=== PATIENT | male | born 1960 | race Caucasian/White ===

== ENCOUNTER 2016-08-21 10:30 | Emergency (ER) | payer OTHER ==
[~2016-08-21] VITALS: Ht 175.3 cm; Wt 113.7 kg
[~2016-08-21 10:30] MED LIST: ASPI325T39 PO; CARV6.252 PO; CEFA500C2 PO; IPRA1AER2 INH; LISI5TAB PO; NTRGSL/4 SL; SIMV40TA4 PO
[2016-08-21 10:42] VITALS: TEMP 36.8; Ht 175.3 cm; Wt 113.7 kg
[2016-08-21] MEDS ORDERED: GABA-113 PO (10:59)
[2016-08-21] MEDS ORDERED: FAMOTIDINE 20MG/102 ML D5W IV STA (11:51)
[2016-08-21] MEDS ORDERED: DiphenhydrAMINE HCL 50 MG/ML VIAL IV STA ×2 (11:51→13:03)
--- NOTE | 2016-08-21 11:57 | EMERGENCY ROOM VISIT NOTE ---
History First contact with patient: 11:20 Chief Complaint: RASH Stated Complaint: RASH, BURNING/ITCHING History of Present Illness The patient is a 56 year old male who presents to the Emergency Room with complaints of rash. The patient states that he has had a rash before . He states the rash started on his elbows and flexor surfaces. He states the next day the rash had spread to his entire body. The patient states the rash is burning and itching. He states that his face feels like it is on fire. He saw his family doctor just after . He was started on prednisone which made the rash get better but it came back 1 day after stopping the prednisone. He has not yet seen dermatology. He does have a history of ulcerative colitis. He has not had any recent changes in his medications. He denies any fevers. He states that his throat feels sore. He denies any worsening ulcerative colitis symptoms. He states his dog tested positive for Lyme disease. He denies any history of similar. Review of Systems A 10 system review of systems was completed with positives and pertinent negatives listed in the HPI. 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 (5) DIAB CONNER WO COMPL, TYPE II OR UNSPEC TYPE, NOT UNCNTRLD (6) DIVERTICULOSIS COLON (W/O MENT OF HEMORRHAGE) (7) ESOPHAGEAL REFLUX (8) Heart Disease (9) Hip Replacement (10) HISTORY OF TOBACCO USE (11) HYPERLIPIDEMIA NEC/NOS (12) HYPOTHYROIDISM NOS (13) LEGIONNAIRES' DISEASE (14) MSSA (methicillin susceptible Staphylococcus aureus) infection (15) MSSA (methicillin susceptible Staphylococcus aureus) septicemia (16) Stents x5 (17) ULCERATIVE COLITIS, UNSPECIFIED Family History Heart disease Social History Smoking Status: Former Smoker Alcohol Use: none Drug Use: none Marital Status: Housing Status: lives with family Occupation Status: employed Current/Historical Medications Scheduled Carvedilol (Coreg), 6.25 MG PO BID Gabapentin (Neurontin), 300 MG PO TID Hydrocortisone (Topical) (Hydrocortisone), 1 APPLN TOP BID Ipratropium-Albuterol (Combivent Respimat), 1 PUFFS INH QID Lisinopril (Prinivil), 2.5 MG PO QAM Nitroglycerin (Nitrostat), 1 TAB SL UD Prednisone (Prednisone Tab), 20 MG PO UD Simvastatin (Zocor), 40 MG PO QAM Triamcinolone Acet (Aristocort 0.1%), 1 APPLN TOP BID Miscellaneous Medications Aspirin (Aspirin Ec), 325 MG PO Allergies Coded Allergies: No Known Allergies (Verified , 08/21/16) Physical Exam Vital Signs Date Time Temp Pulse Resp B/P Pulse Ox O2 Delivery O2 Flow Rate FiO2 08/21/16 14:52 68 18 108/65 98 Room Air 08/21/16 13:10 65 18 123/81 100 Room Air 08/21/16 12:13 71 18 135/79 94 Room Air 08/21/16 10:42 36.8 79 18 118/74 98 Room Air Physical Exam VITALS: Vitals are noted on the nurse's note and reviewed by myself. Vital signs stable. GENERAL: This is a 56-year-old male, in no acute distress, nondiaphoretic, well- developed well-nourished. SKIN: There is a diffuse macular rash over the entire body. The face is diffusely erythematous with dry, cracked areas with yellow drainage. There is no tenting of the skin. Capillary reflex less than 2 seconds. HEAD: Normocephalic atraumatic. EARS: External auditory canals clear, tympanic membranes pearly foy without erythema or effusion bilaterally. EYES: Pupils equal round and reactive to light and accommodation. Conjunctivae without injection, sclerae without icterus. Extraocular movements intact. NOSE: Patent, turbinates without inflammation or discharge. MOUTH: Mucous membranes moist. Tonsils are not enlarged. No obvious intraoral lesions. There is mild posterior pharyngeal erythema. Uvula midline. Airway patent. Tongue does not deviate. NECK: Supple without nuchal rigidity. No thyromegaly. Cervical spine is nontender. No JVD. HEART: Regular rate and rhythm without murmurs gallops or rubs. LUNGS: Clear to auscultation bilaterally without wheezes, rales or rhonchi. No dullness to percussion. No retractions or accessory muscle use. MUSCULOSKELETAL: No muscle atrophy, erythema, or edema noted. Full range of motion in all extremities. Normal gait. Strength 5/5 throughout. NEURO: Patient was alert and oriented to person place and time. No focal neurological deficits. Medical Decision & Procedures Laboratory Results 08/21/16 12:00 Red Blood Count 4.21, Mean Corpuscular Volume 84.6, Mean Corpuscular Hemoglobin 28.5, Mean Corpuscular Hemoglobin Concent 33.7, Mean Platelet Volume 9.9, Neutrophils (%) (Auto) 66.7, Lymphocytes (%) (Auto) 16.6, Monocytes (%) (Auto) 13.6, Eosinophils (%) (Auto) 2.7, Basophils (%) (Auto) 0.2, Neutrophils # (Auto ) 6.20, Lymphocytes # (Auto) 1.54, Monocytes # (Auto) 1.26, Eosinophils # (Auto ) 0.25, Basophils # (Auto) 0.02 08/21/16 12:00 Test 08/21/16 12:00 White Blood Count 9.29 K/uL (4.8-10.8) Red Blood Count 4.21 M/uL (4.7-6.1) Hemoglobin 12.0 g/dL (14.0-18.0) Hematocrit 35.6 % (42-52) Mean Corpuscular Volume 84.6 fL (80-100) Mean Corpuscular Hemoglobin 28.5 pg (25-34) Mean Corpuscular Hemoglobin Concent 33.7 g/dl (32-36) Platelet Count 190 K/uL (130-400) Mean Platelet Volume 9.9 fL (7.4-10.4) Neutrophils (%) (Auto) 66.7 % Lymphocytes (%) (Auto) 16.6 % Monocytes (%) (Auto) 13.6 % Eosinophils (%) (Auto) 2.7 % Basophils (%) (Auto) 0.2 % Neutrophils # (Auto) 6.20 K/uL (1.4-6.5) Lymphocytes # (Auto) 1.54 K/uL (1.2-3.4) Monocytes # (Auto) 1.26 K/uL (0.11-0.59) Eosinophils # (Auto) 0.25 K/uL (0-0.5) Basophils # (Auto) 0.02 K/uL (0-0.2) RDW Standard Deviation 57.8 fL (36.4-46.3) RDW Coefficient of Variation 18.7 % (11.5-14.5) Immature Granulocyte % (Auto) 0.2 % Immature Granulocyte # (Auto) 0.02 K/uL (0.00-0.02) Anion Gap 8.0 mmol/L (3-11) Est Creatinine Clear Calc Drug Dose 83.4 ml/min Estimated GFR () 76.8 Estimated GFR (Non- 66.3 BUN/Creatinine Ratio 22.2 (10-20) Calcium Level 8.3 mg/dl (8.5-10.1) Total Bilirubin 0.4 mg/dl (0.2-1) Aspartate Amino Transf (AST/SGOT) 19 U/L (15-37) Alanine Aminotransferase (ALT/SGPT) 45 U/L (12-78) Alkaline Phosphatase 165 U/L (45-117) Total Protein 7.2 gm/dl (6.4-8.2) Albumin 3.1 gm/dl (3.4-5.0) Globulin 4.1 gm/dl (2.5-4.0) Albumin/Globulin Ratio 0.8 (0.9-2) Lyme Disease IgG Antibody NEG (NEG) Lyme Disease IgM Antibody NEG (NEG) Medications Administered Medications (Trade) Dose Ordered Sig/Blair Route Start Time Stop Time Status Last Admin Dose Admin Dexamethasone Sodium Phosphate (Decadron Inj) 10 mg NOW ONCE IV 08/21/16 12:00 08/21/16 12:01 DC 08/21/16 12:09 10 MG Diphenhydramine HCl (Benadryl Inj) 25 mg NOW STAT IV 08/21/16 11:51 08/21/16 11:54 DC 08/21/16 12:09 25 MG Famotidine 20 mg 20 mg ONE STAT IV 08/21/16 11:51 08/21/16 11:54 DC 08/21/16 12:09 20 MG Sodium Chloride (Nss 1000ml) 1,000 ml @ 999 mls/hr Q1H1M STAT IV 08/21/16 12:10 08/21/16 13:10 DC 08/21/16 12:15 999 MLS/HR Diphenhydramine HCl (Benadryl Inj) 25 mg NOW STAT IV 08/21/16 13:03 08/21/16 13:04 DC 08/21/16 13:10 25 MG ED Course The patient was seen and examined. Previous visits were reviewed. The patient does not have a fever or leukocytosis. He does have a mild anemia. He does not have any significant electrolyte abnormalities. Lyme titer was negative. The patient was given IV Benadryl, IV Pepcid and IV Decadron. The erythema did seem to lightly improve but the patient still complained of mild pruritus. The patient has had a rash that has been ongoing since before [place]. Prednisone seems to significantly improve the rash. He does have ulcerative colitis. This could potentially represent a psoriasis or atopic dermatitis. The patient has not been able to see dermatology. I was able to speak with the [facility] dermatology. He recommends a prednisone taper, triamcinolone from the neck down BID and hydrocortisone to the face BID. He recommends a moisturizing cream during the day. He recommends a follow-up with dermatology or family doctor in 4 weeks. The patient was given these prescriptions and advised of the recommendations. The patient should return to the emergency Department with any worsening symptoms. The case was discussed with Dr. Dominguez who agrees with the assessment and treatment plan Medical Decision The differential diagnosis includes atopic dermatitis, red man syndrome, allergic reaction, psoriasis, cellulitis, among others Impression Primary Impression: Atopic dermatitis Departure Information Dispostion Home / Self-Care Condition GOOD Prescriptions Hydrocortisone (Topical) (HYDROCORTISONE) 2.5 % Oin 1 APPLN TOP BID, #1 TUBE apply to the face Prov: Nereida Briggs PA-C 08/21/16 Triamcinolone Acet (ARISTOCORT 0.1%) 240 Appln/80 Gm Cr 1 APPLN TOP BID, #1 TUBE apply from the neck down Prov: Nereida Briggs PA-C 08/21/16 Prednisone (Prednisone Tab) 20 Mg Tab 20 MG PO UD, #30 TAB 60 mg by mouth daily 5 days, then 40 mg by mouth daily 5 days, then 20 mg by mouth daily 5 days Prov: Nereida Briggs PA-C 08/21/16 Referrals Oneal Brown M.D. (PCP) Kumar Mensah MD Patient Instructions Dermatitis Atopic, My [facility] Additional Instructions Prednisone as prescribed, until finished Apply the triamcinolone cream from the neck down every 12 hours Apply the hydrocortisone ointment to the face every 12 hours Applied the medicated ointments at least one time after a shower During the day use a good moisturizing cream Follow up with dermatology in 4 weeks Return to the ER with any worsening symptoms Problem Qualifiers Primary Impression: Atopic dermatitis
[2016-08-21] MEDS ORDERED: DEXAMETHASONE SOD INJ 10 MG/ML VIAL IV ONE (12:00)
[2016-08-21] MEDS ORDERED: SODIUM CHLORIDE 0.9% 1000ML 1,000 ML IV STA (12:10)
[2016-08-21 12:23] LABS: BASO % 0.2 %; BASO ABS # 0.02 K/uL (0-0.2); COMPLETE YES; EOS % 2.7 %; HEMATOCRIT 35.6 % (42-52); IG% 0.2 %; LYMPH % 16.6 %; LYMPH ABS # 1.54 K/uL (1.2-3.4); MEAN CELL VOLUME 84.6 fL (80-100); MEAN CORPUSCULAR HEMOGLOBIN 28.5 pg (25-34); MEAN CORPUSCULAR HGB CONC 33.7 g/dl (32-36); MEAN PLATELET VOLUME 9.9 fL (7.4-10.4); MONO % 13.6 %; NEUT % 66.7 %; PLATELET COUNT 190 K/uL (130-400); RED BLOOD COUNT 4.21 M/uL (4.7-6.1); WHITE BLOOD COUNT 9.29 K/uL (4.8-10.8)
[2016-08-21 12:41] LABS: CREATININE 1.2 mg/dl (0.60-1.40)
[2016-08-21 12:42] LABS: BUN/CREATININE RATIO 22.2 (10-20); CALCIUM 8.3 mg/dl (8.5-10.1); POTASSIUM 3.6 mmol/L (3.5-5.1)
[2016-08-21 12:44] LABS: ALB/GLOB RATIO 0.8 (0.9-2)
[2016-08-21 13:21] LABS: LYME DISEASE AB IGG NEG (NEG); LYME DISEASE AB IGM NEG (NEG)
[2016-08-21] MEDS ORDERED: PRED20TA2 PO (14:34)
[2016-08-21] MEDS ORDERED: HYDR2.5O TOP (14:34)
[2016-08-21] MEDS ORDERED: TRMCR180 TOP (14:34)
[2016-08-21 14:52] VITALS: BP 108/65; PULSE 68; O2SAT 98
== END 2016-08-21 14:53 | disposition home or self-care (01) ==
LOC: C.EDB 10:32
DX: L20.9 Atopic dermatitis, unspecified (principal); K51.90 Ulcerative colitis, unspecified, without complications; E78.5 Hyperlipidemia, unspecified; E11.9 Type 2 diabetes mellitus without complications; I25.10 Atherosclerotic heart disease of native coronary artery without angina pectoris; Z79.899 Other long term (current) drug therapy; Z86.19 Personal history of other infectious and parasitic diseases; Z87.891 Personal history of nicotine dependence; Z95.1 Presence of aortocoronary bypass graft; Z82.49 Family history of ischemic heart disease and other diseases of the circulatory system

== ENCOUNTER → 2016-08-25 | Outpatient (CLI) | payer OTHER ==
[~2016-08-25] MED LIST changes: +BISA-16 PO; -CEFA500C2 PO; +GABA-113 PO; +HYDR-5688 PO; +HYDR2.5O TOP; +MESA800T5 PO; +PRED20TA PO; +PRED20TA2 PO; +SENN-61 PO; +TRMCR180 TOP
[2016-08-25 09:31] LABS: BASO % 0.1 %; BASO ABS # 0.01 K/uL (0-0.2); COMPLETE YES; HEMATOCRIT 35.3 % (42-52); IG% 0.3 %; LYMPH % 15.5 %; LYMPH ABS # 1.77 K/uL (1.2-3.4); MEAN CELL VOLUME 85.3 fL (80-100); MEAN CORPUSCULAR HEMOGLOBIN 28.3 pg (25-34); MEAN CORPUSCULAR HGB CONC 33.1 g/dl (32-36); MEAN PLATELET VOLUME 10.3 fL (7.4-10.4); MONO % 7.5 %; NEUT % 76.6 %; PLATELET COUNT 204 K/uL (130-400); RED BLOOD COUNT 4.14 M/uL (4.7-6.1)
== END | disposition home or self-care (01) ==
LOC: C.LAB1850 08:30
PROVIDERS: ATTEND Dermatology
DX: L30.9 Dermatitis, unspecified (principal)

== ENCOUNTER → 2017-01-20 | Outpatient (CLI) | payer OTHER ==
[2017-01-20 17:34] LABS: BASO % 0.6 %; BASO ABS # 0.05 K/uL (0-0.2); COMPLETE YES; EOS % 1.8 %; IG% 0.4 %; LYMPH ABS # 1.53 K/uL (1.2-3.4); MEAN CELL VOLUME 87.2 fL (80-100); MEAN CORPUSCULAR HEMOGLOBIN 27.8 pg (25-34); MEAN CORPUSCULAR HGB CONC 31.8 g/dl (32-36); MEAN PLATELET VOLUME 10.2 fL (7.4-10.4); MONO % 8.8 %; NEUT % 70.4 %; PLATELET COUNT 253 K/uL (130-400); RED BLOOD COUNT 4.36 M/uL (4.7-6.1); WHITE BLOOD COUNT 8.48 K/uL (4.8-10.8)
[2017-01-20 18:54] LABS: BLOOD UREA NITROGEN 20 mg/dl (7-18); BUN/CREATININE RATIO 16.4 (10-20); CALCIUM 8.7 mg/dl (8.5-10.1); CARBON DIOXIDE 24 mmol/L (21-32); CHLORIDE 113 mmol/L (98-107); CHOLESTEROL 189 mg/dl (0-200); GLUCOSE 75 mg/dl (70-99); POTASSIUM 4.2 mmol/L (3.5-5.1); SODIUM 143 mmol/L (136-145)
[2017-01-20 19:01] LABS: ALB/GLOB RATIO 0.8 (0.9-2); ALKALINE PHOSPHATASE 162 U/L (45-117); ALT/SGPT 25 U/L (12-78); AST/SGOT 16 U/L (15-37); CHOLESTEROL/HDL RATIO 4.1; HDL CHOLESTEROL 46 mg/dl; LDL CHOLESTEROL CALCULATED 115 mg/dl; THYROID STIMULATING HORMONE 0.571 uIu/ml (0.300-4.500); TRIGLYCERIDES 138 mg/dl (0-150); VERY LOW DENSITY LIPOPROT CALC 28 mg/dl
[2017-01-21 06:28] LABS: ESTIMATED AVERAGE GLUCOSE 134 mg/dl; HA1C FLAG Normal (Normal)
== END | disposition home or self-care (01) ==
LOC: C.LABBFT 12:37
PROVIDERS: ATTEND Physician Assistant Medical
DX: R73.01 Impaired fasting glucose (principal); Z12.5 Encounter for screening for malignant neoplasm of prostate

== ENCOUNTER 2017-01-27 13:01 | Inpatient (IN) | payer OTHER ==
[~2017-01-27] VITALS: Ht 175.3 cm; Wt 113.8 kg
[~2017-01-27 13:01] MED LIST changes: -BISA-16 PO; -HYDR-5688 PO; -MESA800T5 PO; -PRED20TA PO; -SENN-61 PO
[2017-01-27] MEDS ORDERED: MoRPHine SULFATE 10 MG/ML CARP/VIAL IV STA (13:14)
[2017-01-27] MEDS ORDERED: NITROGLYCERIN OINT 2% 1GM PACKET EXT STA (13:14)
[2017-01-27] MEDS ORDERED: ALBUTEROL 0.5% NEB SOLN 2.5 MG/0.5 ML VIAL INH STA ×2 (13:14→14:57)
[2017-01-27] MEDS ORDERED: ONDANSETRON INJ 2 MG/ML 2 ML VIAL IV STA (13:14)
[2017-01-27] MEDS ORDERED: NITROGLYCERIN OINT 2% 1GM PACKET ONE (13:24)
[2017-01-27 13:41] LABS: BASO % 0.5 %; BASO ABS # 0.04 K/uL (0-0.2); COMPLETE YES; EOS % 1.1 %; HEMATOCRIT 42.3 % (42-52); IG% 0.2 %; LYMPH % 18.5 %; LYMPH ABS # 1.52 K/uL (1.2-3.4); MEAN CELL VOLUME 87.6 fL (80-100); MEAN CORPUSCULAR HGB CONC 33.1 g/dl (32-36); MEAN PLATELET VOLUME 10.5 fL (7.4-10.4); MONO % 11.4 %; NEUT % 68.3 %; PLATELET COUNT 246 K/uL (130-400); RED BLOOD COUNT 4.83 M/uL (4.7-6.1); WHITE BLOOD COUNT 8.22 K/uL (4.8-10.8)
--- NOTE | 2017-01-27 13:44 | EMERGENCY ROOM VISIT NOTE ---
History Report prepared by Deanna: Christina Hitchcock Under the Supervision of: Dr. Manav Dominguez M.D. First contact with patient: 13:07 Stated Complaint: CHEST PAIN History of Present Illness The patient is a 56 year old male who presents to the Emergency Room with complaints of constant chest pain since last night. The patient states that he has not been feeling well for the past two days. He has been experiencing shortness of breath that is worse with exertion and a productive cough with thick brown sputum. He has felt more tired than usual and reports a loss of appetite. Last night he developed chest pain that he describes as a pressure in his chest. He states that it feels like something is sitting on his chest. The patient's chest pain increases with cough and inspiration. He went to the [facility] clinic this morning for his symptoms. While he was there he had a Duoneb treatment that helped to alleviate his shortness of breath for some time. He was brought to the ED by ambulance for further evaluation. Per EMS, the patient's breathing worsened en route. He was given a second Duoneb treatment. He was also given aspirin and nitro for his chest pain. This helped alleviate some of his pain and the patient states that he went from 8/10 pain to 5/10 pain. He is currently complaining of a headache after receiving the nitro. The patient denies nausea and abdominal pain. He has a history of 3 MIs in 2009 and has 5 cardiac stents. He takes aspirin but denies any other blood thinners. Source of History: patient, EMS Onset: last night Position: chest Symptom Intensity: 5/10 Quality: pressure Timing: constant Modifying Factors (Worsening): exertion, other (cough/inspiration) Modifying Factors (Relieving): other (nitro/aspirin/Duoneb) Associated Symptoms: + headache, + cough, + SOB, + fatigue, No nausea, No abdominal pain Review of Systems See HPI for pertinent positives & negatives. A total of 10 systems reviewed and were otherwise negative. 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 (5) DIAB [place] WO COMPL, TYPE II OR UNSPEC TYPE, NOT UNCNTRLD (6) DIVERTICULOSIS COLON (W/O MENT OF HEMORRHAGE) (7) ESOPHAGEAL REFLUX (8) Heart Disease (9) Hip Replacement (10) HISTORY OF TOBACCO USE (11) HYPERLIPIDEMIA NEC/NOS (12) HYPOTHYROIDISM NOS (13) LEGIONNAIRES' DISEASE (14) MSSA (methicillin susceptible Staphylococcus aureus) infection (15) MSSA (methicillin susceptible Staphylococcus aureus) septicemia (16) Stents x5 (17) ULCERATIVE COLITIS, UNSPECIFIED Family History Heart disease Social History Smoking Status: Former Smoker Alcohol Use: none Drug Use: none Marital Status: Housing Status: lives with family Occupation Status: employed Current/Historical Medications Scheduled Aspirin (Aspirin Ec), 325 MG PO BID Bisacodyl (Dulcolax), 5 MG PO DAILY Gabapentin (Neurontin), 300 MG PO TID Ipratropium-Albuterol (Combivent Respimat), 1 PUFFS INH QID Lisinopril (Prinivil), 2.5 MG PO QAM Mesalamine (Asacol Hd), 800 MG PO TID Nitroglycerin (Nitrostat), 1 TAB SL UD Senna (Senokot), 8.6 MG PO DAILY Triamcinolone Acet (Aristocort 0.1%), 1 APPLN TOP BID Allergies Coded Allergies: No Known Allergies (Verified , 01/27/17) Physical Exam Vital Signs Date Time Temp Pulse Resp B/P (MAP) Pulse Ox O2 Delivery O2 Flow Rate FiO2 01/27/17 16:35 100 15 96 01/27/17 16:30 101/61 01/27/17 16:23 86/50 01/27/17 16:20 110 25 96 01/27/17 16:15 86/52 01/27/17 16:00 95 97/64 01/27/17 15:57 99 20 100/83 98 Room Air 01/27/17 15:57 100/83 01/27/17 14:30 104 22 94/58 93 Nasal Cannula 3.0 01/27/17 14:15 116 01/27/17 13:40 92 Nasal Cannula 3.0 01/27/17 13:38 105 20 95/67 89 Room Air 01/27/17 13:32 110 20 120/69 96 Room Air 01/27/17 13:11 96 Room Air 01/27/17 13:11 36.7 113 22 109/94 96 Room Air 01/27/17 13:11 96 Room Air 01/27/17 13:08 110 Physical Exam GENERAL: Patient is a healthy-appearing well-nourished male. HEAD: Normocephalic atraumatic EYES: Ocular movements intact pupils equal and react to light OROPHARYNX mucous membranes are moist no exudates present no erythema or edema present NECK: Supple no nuchal rigidity CHEST: Good equal expansion LUNGS: Diffuse wheezing in all lung brooks, coughing on exam CARDIAC: Normal S1 and S2 ABDOMEN: Soft nontender no guarding BACK: No CVA tenderness EXTREMITIES: No pain upon palpation normal muscle strength in all groups no clubbing cyanosis or edema NEURO: Patient is following commands and answering questions appropriately. Alert and oriented x3 Cranial Nerves 2-12 grossly intact Medical Decision & Procedures ER Provider Diagnostic Interpretation: Radiology results as stated below per my review and radiologist interpretation: SINGLE VIEW CHEST CLINICAL HISTORY: Atypical chest pain. FINDINGS: An AP, portable, upright chest radiograph is compared to study dated 07/05/2015. The examination is degraded by portable technique, large body habitus, and patient rotation. The heart is top projection. There is mild atherosclerotic calcification of the thoracic aorta. There is mild bibasilar atelectasis. The lungs and pleural spaces are otherwise clear. No pneumothorax is seen. The bony thorax is grossly intact. IMPRESSION: No acute cardiopulmonary abnormality. Electronically signed by: Yosi Carcamo M.D. 01/27/2017 1:48 PM Dictated Date/Time: 01/27/2017 1:47 PM CHEST CTA for PULMONARY ARTERIES CT DOSE: 444.84 mGy.cm HISTORY: Chest pain dyspnea TECHNIQUE: Multiaxial CT images of the chest were performed following the intravenous administration of contrast to evaluate the pulmonary arteries. Maximal intensity projection images were also obtained. COMPARISON STUDY: None. FINDINGS: The thoracic aorta is normal in course and caliber. Pulmonary vasculature enhances uniformly. Mild bibasilar interstitial change with mild bibasilar dependent atelectatic change. No significant mediastinal or hilar adenopathy. Calcification of the coronary arterial vasculature. IMPRESSION: 1. Study is negative for pulmonary embolus. 2. Bibasilar interstitial and mild atelectatic change. Electronically signed by: Vipul De Souza M.D. 01/27/2017 3:05 PM Dictated Date/Time: 01/27/2017 3:02 PM Laboratory Results 01/27/17 12:50 Red Blood Count 4.83, Mean Corpuscular Volume 87.6, Mean Corpuscular Hemoglobin 29.0, Mean Corpuscular Hemoglobin Concent 33.1, Mean Platelet Volume 10.5, Neutrophils (%) (Auto) 68.3, Lymphocytes (%) (Auto) 18.5, Monocytes (%) (Auto) 11.4, Eosinophils (%) (Auto) 1.1, Basophils (%) (Auto) 0.5, Neutrophils # (Auto ) 5.61, Lymphocytes # (Auto) 1.52, Monocytes # (Auto) 0.94, Eosinophils # (Auto ) 0.09, Basophils # (Auto) 0.04 01/27/17 12:50 Test 01/27/17 12:50 01/27/17 13:18 01/27/17 17:32 White Blood Count 8.22 K/uL (4.8-10.8) Red Blood Count 4.83 M/uL (4.7-6.1) Hemoglobin 14.0 g/dL (14.0-18.0) Hematocrit 42.3 % (42-52) Mean Corpuscular Volume 87.6 fL (80-100) Mean Corpuscular Hemoglobin 29.0 pg (25-34) Mean Corpuscular Hemoglobin Concent 33.1 g/dl (32-36) Platelet Count 246 K/uL (130-400) Mean Platelet Volume 10.5 fL (7.4-10.4) Neutrophils (%) (Auto) 68.3 % Lymphocytes (%) (Auto) 18.5 % Monocytes (%) (Auto) 11.4 % Eosinophils (%) (Auto) 1.1 % Basophils (%) (Auto) 0.5 % Neutrophils # (Auto) 5.61 K/uL (1.4-6.5) Lymphocytes # (Auto) 1.52 K/uL (1.2-3.4) Monocytes # (Auto) 0.94 K/uL (0.11-0.59) Eosinophils # (Auto) 0.09 K/uL (0-0.5) Basophils # (Auto) 0.04 K/uL (0-0.2) RDW Standard Deviation 50.0 fL (36.4-46.3) RDW Coefficient of Variation 15.7 % (11.5-14.5) Immature Granulocyte % (Auto) 0.2 % Immature Granulocyte # (Auto) 0.02 K/uL (0.00-0.02) Est Creatinine Clear Calc Drug Dose 82.7 ml/min Estimated GFR () 76.8 Estimated GFR (Non- 66.3 BUN/Creatinine Ratio 13.9 (10-20) Calcium Level 8.9 mg/dl (8.5-10.1) Total Bilirubin 0.3 mg/dl (0.2-1) Direct Bilirubin < 0.1 mg/dl (0-0.2) Aspartate Amino Transf (AST/SGOT) 13 U/L (15-37) Alanine Aminotransferase (ALT/SGPT) 23 U/L (12-78) Alkaline Phosphatase 211 U/L (45-117) Total Creatine Kinase 71 U/L (39-308) Creatine Kinase MB 0.7 ng/ml (0.5-3.6) Creatine Kinase MB Ratio 1.0 (0-3.0) Troponin I < 0.015 ng/ml (0-0.045) Total Protein 8.7 gm/dl (6.4-8.2) Albumin 3.8 gm/dl (3.4-5.0) Lipase 131 U/L (73-393) Bedside Hemoglobin 15.3 g/dl (14.0-18.0) Bedside Hematocrit 45 % (42-52) Bedside Sodium 139 mEq/L (135-144) Bedside Potassium 3.8 mEq/L (3.3-5.0) Bedside Chloride 104 mEq/L (101-112) Bedside Total CO2 21 mEq/l (24-31) Anion Gap 19.0 mmol/L (16-25) Bedside Blood Urea Nitrogen 18 mg/dl (7-18) Bedside Creatinine 1.1 mg/dl (0.6-1.3) Bedside Glucose (other) 103 mg/dl (70-99) Bedside Ionized Calcium (Ronny) 1.23 mmol/l (1.12-1.32) Triglycerides Level 108 mg/dl (0-150) Cholesterol Level 203 mg/dl (0-200) HDL Cholesterol 44 mg/dl LDL Cholesterol, Calculated 137 mg/dl VLDL Cholesterol, Calculated 22 mg/dl Cholesterol/HDL Ratio 4.6 Labs reviewed by ED physician. Medications Administered Medications (Trade) Dose Ordered Sig/Blair Route Start Time Stop Time Status Last Admin Dose Admin Albuterol Sulfate (Ventolin 0.5% 2.5MG/0.5ML Neb) 2.5 mg NOW STAT INH 01/27/17 13:14 01/27/17 13:17 DC 01/27/17 13:31 2.5 MG Morphine Sulfate (MoRPHine SULFATE INJ) 8 mg NOW STAT IV 01/27/17 13:14 01/27/17 13:17 DC 01/27/17 13:31 8 MG Ondansetron HCl (Zofran Inj) 4 mg NOW STAT IV 01/27/17 13:14 01/27/17 13:17 DC 01/27/17 13:32 4 MG Nitroglycerin (Nitroglycerin 2% Oint) 1 inch STK-MED ONCE .ROUTE 01/27/17 13:24 01/27/17 13:25 DC 01/27/17 13:31 1 INCH Albuterol Sulfate (Ventolin 0.5% 2.5MG/0.5ML Neb) 2.5 mg NOW STAT INH 01/27/17 14:57 01/27/17 15:00 DC 01/27/17 14:57 2.5 MG Sodium Chloride 500 ml @ 1,000 mls/hr Q30M ONCE IV 01/27/17 16:45 01/27/17 17:14 DC 01/27/17 16:37 1,000 MLS/HR ECG Indication: chest pain Rate (beats per minute): 109 Rhythm: sinus tachycardia Findings: PVC, no acute ischemic change, other (old inferior infarct, old anterior infarct) ED Course 1307: Past medical records reviewed. The patient was evaluated in room B7. A complete history and physical examination was performed. 1314: Zofran 4 mg IV, Morphine sulfate 8 mg IV, Albuterol sulfate 2.5 mg INH, Nitroglycerin 1 inch EXT 1457: Albuterol sulfate 2.5 mg INH 1524: I spoke with Dr. Tarah Gotti. We discussed the patient's case. The patient will be evaluated by the [facility] for further management. 1529: I reassessed the patient at this time. He is resting comfortably. I discussed the results and treatment plan with the patient. I answered all pertaining questions that he had. He expressed understanding and verbalized agreement. Medical Decision Differential diagnosis: Etiologies such as cardiac ischemia, aortic dissection, pulmonary embolism, pneumonia, pneumothorax, musculoskeletal, infections, pericarditis, myocarditis , esophageal rupture, gastrointestinal, as well as others were entertained. Medication Reconciliation: I attest that I have personally reviewed the patient' s current medication list. Blood Pressure Screening: Patient was found to have normal blood pressure on screening and does not require follow up. This is a 56-year-old male who presents emergency department complaining of diffuse chest pain along with wheezing. The patient was given nitroglycerin which relieved the pain he is continuing to wheeze so he was also given breathing treatments. His no evidence of heart failure on chest x-ray. I did discuss the case with the hospitalist service who agreed patient. Patient was in agreement with the treatment plan. Consults Time Called: 152 Consulting Physician: Dr. Tarah Gotti Returned Call: [address] Tarah Gotti. We discussed the patient's case. The patient will be evaluated by the [facility] for further management. Impression Primary Impression: Precordial chest pain Additional Impression: Bronchitis Scribe Attestation The scribe's documentation has been prepared under my direction and personally reviewed by me in its entirety. I confirm that the note above accurately reflects all work, treatment, procedures, and medical decision making performed by me. Departure Information Dispostion Being Evaluated By Hospitalist Referrals Lyndsey Lamar P.A. (PCP) Problem Qualifiers
--- NOTE | 2017-01-27 13:49 | DIAGNOSTIC IMAGING REPORT ---
SINGLE VIEW CHEST CLINICAL HISTORY: Atypical chest pain. FINDINGS: An AP, portable, upright chest radiograph is compared to study dated 07/05/2015. The examination is degraded by portable technique, large body habitus, and patient rotation. The heart is top projection. There is mild atherosclerotic calcification of the thoracic aorta. There is mild bibasilar atelectasis. The lungs and pleural spaces are otherwise clear. No pneumothorax is seen. The bony thorax is grossly intact. IMPRESSION: No acute cardiopulmonary abnormality. Electronically signed by: Yosi Carcamo M.D. 01/27/2017 1:48 PM Dictated Date/Time: 01/27/2017 1:47 PM
[2017-01-27] MEDS ORDERED: MESA800T5 PO (14:04)
[2017-01-27] MEDS ORDERED: BISA-16 PO (14:04)
[2017-01-27] MEDS ORDERED: SENN-61 PO (14:04)
[2017-01-27 14:11] LABS: ALT/SGPT 23 U/L (12-78); AST/SGOT 13 U/L (15-37); BLOOD UREA NITROGEN 17 mg/dl (7-18); BUN/CREATININE RATIO 13.9 (10-20); CALCIUM 8.9 mg/dl (8.5-10.1); CARBON DIOXIDE 21 mmol/L (21-32); CHLORIDE 108 mmol/L (98-107); GLUCOSE 95 mg/dl (70-99); POTASSIUM 3.7 mmol/L (3.5-5.1); SODIUM 138 mmol/L (136-145)
[2017-01-27 14:16] LABS: ALKALINE PHOSPHATASE 211 U/L (45-117)
[2017-01-27] MEDS ORDERED: OPTIRAY 320 IV PRN (14:45)
--- NOTE | 2017-01-27 15:07 | DIAGNOSTIC IMAGING REPORT ---
CHEST CTA for PULMONARY ARTERIES CT DOSE: 444.84 mGy.cm HISTORY: Chest pain dyspnea TECHNIQUE: Multiaxial CT images of the chest were performed following the intravenous administration of contrast to evaluate the pulmonary arteries. Maximal intensity projection images were also obtained. COMPARISON STUDY: None. FINDINGS: The thoracic aorta is normal in course and caliber. Pulmonary vasculature enhances uniformly. Mild bibasilar interstitial change with mild bibasilar dependent atelectatic change. No significant mediastinal or hilar adenopathy. Calcification of the coronary arterial vasculature. IMPRESSION: 1. Study is negative for pulmonary embolus. 2. Bibasilar interstitial and mild atelectatic change. Electronically signed by: Vipul De Souza M.D. 01/27/2017 3:05 PM Dictated Date/Time: 01/27/2017 3:02 PM
[2017-01-27] MEDS ORDERED: NURSING VERBAL MED ORDER ONE (16:30)
[2017-01-27 16:31] LABS: ISTAT CREATININE 1.1 mg/dl (0.6-1.3); ISTAT HEMOGLOBIN 15.3 g/dl (14.0-18.0); ISTAT IONIZED CALCIUM 1.23 mmol/l (1.12-1.32)
[2017-01-27] MEDS ORDERED: SODIUM CHLORIDE 0.9% 500ML 500 ML IV ONE (16:45)
[2017-01-27] MEDS ORDERED: MAGNESIUM HYDROXIDE SUSP 30 ML UDC PO PRN (17:00)
[2017-01-27] MEDS ORDERED: POLYETHYLENE (MIRALAX) 17 GM PACK PO PRN (17:00)
[2017-01-27] MEDS ORDERED: NITROGLYCERIN 0.4 MG SL PER TAB CHARGE SL PRN (17:00)
[2017-01-27] MEDS ORDERED: ZOLPIDEM TARTRATE 5 MG TAB PO PRN (17:00)
[2017-01-27] MEDS ORDERED: IPRATROPIUM BROMIDE/ALBUTEROL respimat INH INH SCH (17:00)
[2017-01-27] MEDS ORDERED: NITROGLYCERIN 0.4 MG SL PER TAB CHARGE SL SCH (17:00)
[2017-01-27] MEDS ORDERED: ALUMINUM/MAGNESIUM/SIMETH (MAALOX MAX) 30 ML UDC PO PRN (17:00)
--- NOTE | 2017-01-27 17:07 | History and Physical ---
History & Physical Date & Time of Service: Jan 27, 2017 at 16:34 Chief Complaint: Chest Pain Primary Care Physician: Oneal Brown M.D. History of Present Illness Source: patient, family 56 year old male with PMHx of CAD S/P 3 MIs in 2009 and has 5 cardiac stents He was in his normal state of health till 2 days prior to admission. he was working outside on equipment when he developed cough and lung congestion. cough associated with brown sputum. also had chest heaviness last night across the chest, pain is severe and associated with sweating. He though said that the pain is different from his pain when he had a heart attack. currently has cough associated with chest pain in his ribs. cough and pain alleviated by Duoneb in ED 10 dasy ago he had severe decline in his left eye vision, right eye is blind He was supposed to see his [employer] consultant tomorrow Past Medical/Surgical History Medical Problems: (1) ALCOHOL ABUSE-UNSPEC Status: Chronic (2) AORTOCORONARY BYPASS Status: Chronic (3) Bronchitis Status: Chronic (4) CORONARY ATHEROSCLEROSIS OF [place] CORONARY VESSEL Status: Chronic (5) DIAB CONNER WO COMPL, TYPE II OR UNSPEC TYPE, NOT UNCNTRLD Status: Chronic (6) DIVERTICULOSIS COLON (W/O MENT OF HEMORRHAGE) Status: Chronic (7) ESOPHAGEAL REFLUX Status: Chronic (8) Heart Disease Status: Chronic (9) Hip Replacement Status: Chronic (10) HISTORY OF TOBACCO USE Status: Chronic (11) HYPERLIPIDEMIA NEC/NOS Status: Chronic (12) HYPOTHYROIDISM NOS Status: Chronic (13) LEGIONNAIRES' DISEASE Status: Resolved (14) Stents x5 Status: Chronic (15) ULCERATIVE COLITIS, UNSPECIFIED Status: Chronic Family History Heart disease Social History Smoking Status: Former Smoker Drug Use: none Marital Status: Housing status: lives with family Occupational Status: employed Immunizations History of Influenza Vaccine: Unknown History of Tetanus Vaccine?: Unknown Tetanus Immunization Date: Apr 09, 2007 History of Pneumococcal: Unknown History of Hepatitis B Vaccine: Unknown Multi-Drug Resistant Organisms History of MDRO: No Allergies Coded Allergies: No Known Allergies (Verified , 01/27/17) Home Medications Scheduled Aspirin (Aspirin Ec), 325 MG PO BID Bisacodyl (Dulcolax), 5 MG PO DAILY Gabapentin (Neurontin), 300 MG PO TID Ipratropium-Albuterol (Combivent Respimat), 1 PUFFS INH QID Lisinopril (Prinivil), 2.5 MG PO QAM Mesalamine (Asacol Hd), 800 MG PO TID Nitroglycerin (Nitrostat), 1 TAB SL UD Senna (Senokot), 8.6 MG PO DAILY Triamcinolone Acet (Aristocort 0.1%), 1 APPLN TOP BID Review of Systems Constitutional: No fever, No chills, No sweats, No weight loss, No weakness, No fatigue, No problem reported Eyes: + worsening of vision, No eye pain, No redness, No discharge, No diplopia , No problem reported ENT: No hearing loss, No unusual epistaxis, No nasal symptoms, No sore throat, No tinnitus, No dental problems, No trouble swallowing, No problem reported Respiratory: + cough, + sputum, + wheezing, No shortness of breath, No dyspnea on exertion, No dyspnea at rest, No hemoptysis, No problem reported Cardiovascular: + chest pain, No orthopnea, No PND, No edema, No claudication, No palpitations, No problem reported Abdomen: No pain, No nausea, No vomiting, No diarrhea, No constipation, No GI bleeding, No problem reported Musculoskeletal: No joint pain, No muscle pain, No swelling, No calf pain, No problem reported Neurologic: No memory loss, No paralysis, No weakness, No numbness/tingling, No vertigo, No balance problems, No problem reported Psychiatric: No depression symptoms, No anhedonism, No anxiety, No insomnia, No substance abuse, No problem reported Endocrine: No fatigue, No excessive thirst, No excessive urination, No problem reported Hematologic / Lymphatic: No abnormal bleeding/bruising, No clotting problems, No swollen lymph nodes, No night sweats, No problem reported Integumentary: No rash, No itch, No new/changing skin lesions, No color change , No bleeding, No problem reported Physical Exam Vital Signs Date Time Temp Pulse Resp B/P (MAP) Pulse Ox O2 Delivery O2 Flow Rate FiO2 01/27/17 16:15 86/52 01/27/17 16:00 95 97/64 01/27/17 15:57 99 20 100/83 98 Room Air 01/27/17 15:57 100/83 01/27/17 14:30 104 22 94/58 93 Nasal Cannula 3.0 01/27/17 14:15 116 01/27/17 13:40 92 Nasal Cannula 3.0 01/27/17 13:38 105 20 95/67 89 Room Air 01/27/17 13:32 110 20 120/69 96 Room Air 01/27/17 13:11 96 Room Air 01/27/17 13:11 36.7 113 22 109/94 96 Room Air 01/27/17 13:11 96 Room Air 01/27/17 13:08 110 General Appearance: + moderate distress, + obese Head: normocephalic, atraumatic Eyes: normal inspection, EOMI ENT: normal ENT inspection, hearing grossly normal Neck: supple Respiratory/Chest: + respiratory distress, + decreased breath sounds, + crackles, + rales Cardiovascular: regular rate, rhythm, no edema, no gallop, no murmur Abdomen/GI: non tender, soft, no organomegaly, no pulsatile mass Back: normal inspection Extremities/Musculoskelatal: normal inspection, no calf tenderness Neurologic/Psych: 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 (except vision, blind right eye and severelydecreased left eye), no motor/sensory deficits, alert, normal mood/ affect, normal reflexes, oriented x 3 Diagnostics Laboratory Results Results Past 24 Hours Test 01/27/17 12:50 01/27/17 13:18 Range/Units White Blood Count 8.22 4.8-10.8 K/uL Red Blood Count 4.83 4.7-6.1 M/uL Hemoglobin 14.0 14.0-18.0 g/dL Hematocrit 42.3 42-52 % Mean Corpuscular Volume 87.6 80-100 fL Mean Corpuscular Hemoglobin 29.0 25-34 pg Mean Corpuscular Hemoglobin Concent 33.1 32-36 g/dl Platelet Count 246 130-400 K/uL Mean Platelet Volume 10.5 7.4-10.4 fL Neutrophils (%) (Auto) 68.3 % Lymphocytes (%) (Auto) 18.5 % Monocytes (%) (Auto) 11.4 % Eosinophils (%) (Auto) 1.1 % Basophils (%) (Auto) 0.5 % Neutrophils # (Auto) 5.61 1.4-6.5 K/uL Lymphocytes # (Auto) 1.52 1.2-3.4 K/uL Monocytes # (Auto) 0.94 0.11-0.59 K/uL Eosinophils # (Auto) 0.09 0-0.5 K/uL Basophils # (Auto) 0.04 0-0.2 K/uL RDW Standard Deviation 50.0 36.4-46.3 fL RDW Coefficient of Variation 15.7 11.5-14.5 % Immature Granulocyte % (Auto) 0.2 % Immature Granulocyte # (Auto) 0.02 0.00-0.02 K/uL Sodium Level 138 136-145 mmol/L Potassium Level 3.7 3.5-5.1 mmol/L Chloride Level 108 98-107 mmol/L Carbon Dioxide Level 21 21-32 mmol/L Anion Gap 9.0 19.0 16-25 mmol/L Blood Urea Nitrogen 17 7-18 mg/dl Creatinine 1.20 0.60-1.40 mg/dl Est Creatinine Clear Calc Drug Dose 82.7 ml/min Estimated GFR () 76.8 Estimated GFR (Non- 66.3 BUN/Creatinine Ratio 13.9 10-20 Random Glucose 95 70-99 mg/dl Calcium Level 8.9 8.5-10.1 mg/dl Total Bilirubin 0.3 0.2-1 mg/dl Direct Bilirubin < 0.1 0-0.2 mg/dl Aspartate Amino Transf (AST/SGOT) 13 15-37 U/L Alanine Aminotransferase (ALT/SGPT) 23 12-78 U/L Alkaline Phosphatase 211 45-117 U/L Total Creatine Kinase 71 39-308 U/L Creatine Kinase MB 0.7 0.5-3.6 ng/ml Creatine Kinase MB Ratio 1.0 0-3.0 Troponin I < 0.015 0-0.045 ng/ml Total Protein 8.7 6.4-8.2 gm/dl Albumin 3.8 3.4-5.0 gm/dl Lipase 131 73-393 U/L Bedside Hemoglobin 15.3 14.0-18.0 g/dl Bedside Hematocrit 45 42-52 % Bedside Sodium 139 135-144 mEq/L Bedside Potassium 3.8 3.3-5.0 mEq/L Bedside Chloride 104 101-112 mEq/L Bedside Total CO2 21 24-31 mEq/l Bedside Blood Urea Nitrogen 18 7-18 mg/dl Bedside Creatinine 1.1 0.6-1.3 mg/dl Bedside Glucose (other) 103 70-99 mg/dl Bedside Ionized Calcium (Ronny) 1.23 1.12-1.32 mmol/l Impression Assessment and Plan 56 years old man with PMHx of CAD S/P multiple stents recently developed left eye significant decreased visual acuity , currently counting fingers 2 days ago he developed cough and pulmonary congestion yesterday he had chest pain in both sides of the chest Assessment: Chest pain R/O ACS Subacute loss of left eye vision (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
[2017-01-27 18:01] LABS: CHOLESTEROL/HDL RATIO 4.6
[2017-01-27 19:15] VITALS: BP 113/71; PULSE 75; TEMP 36.4; O2SAT 94; BMI 36.4
[2017-01-27] MEDS ORDERED: ALBUT/IPRATROP 3MG/0.5MG NEB 3 ML VIAL INH PRN (20:00)
[2017-01-27] MEDS: SODIUM CHLORIDE 0.9% 1000ML 1,000 ML IV SCH (20:04)
[2017-01-27] MEDS: CEFTRIAXONE SOD INJ 1 GM in DEXTROSE 5% ADD-VANTAGE 50ML 50 ML IV SCH (20:05)
[2017-01-27] MEDS: METHYLPREDNISOLONE IV 50 MG in SYRINGE 0 ML IV SCH (20:06)
[2017-01-27 20:10] LABS: PARTIAL THROMBOPLASTIN RATIO 1.2; PROTHROMBIN TIME (PATIENT) 11.1 SECONDS (9.0-12.0)
[2017-01-27] MEDS: TRIAMCINOLONE ACET 0.1% CR 15 GM TUBE EXT SCH (20:54)
[2017-01-27] MEDS: GABAPENTIN 300 MG CAP PO SCH (20:54)
[2017-01-27] MEDS: HEPARIN SOD 5000 UNIT/0.5 ML CARP SQ SCH (21:25)
[2017-01-27] MEDS: AZITHROMYCIN IV 500 MG in DEXTROSE 5% 250ML 250 ML IV SCH (21:26)
[2017-01-28] VITALS (10 sets, daily range): BP systolic 103–123; BP diastolic 62–84; PULSE 57–98; TEMP 36.3–36.7; O2SAT 91–96; Ht 175.3 cm; Wt 113.8 kg
[2017-01-28] MEDS: METHYLPREDNISOLONE IV 50 MG in SYRINGE 0 ML IV SCH ×4 (02:27→20:03)
[2017-01-28] MEDS: HEPARIN SOD 5000 UNIT/0.5 ML CARP SQ SCH ×3 (05:43→21:48)
--- NOTE | 2017-01-28 07:08 | DIAGNOSTIC IMAGING REPORT ---
Brain MRA HISTORY: Visual loss loss vision in left eye TECHNIQUE: 3-D [id number] MRA of the brain was performed without contrast. COMPARISON STUDY: None. FINDINGS: Visualized intracranial internal carotid arteries, distal vertebral arteries, and basilar artery are widely patent. 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 IMPRESSION: No significant stenosis, occlusion, or aneurysm within the [place]. Electronically signed by: Vipul De Souza M.D. 01/28/2017 7:06 AM Dictated Date/Time: 01/28/2017 7:06 AM
[2017-01-28] MEDS: ALBUT/IPRATROP 3MG/0.5MG NEB 3 ML VIAL INH SCH ×4 (07:20→19:49)
[2017-01-28 07:33] LABS: BASO % 0.2 %; BASO ABS # 0.01 K/uL (0-0.2); COMPLETE YES; HEMATOCRIT 40.7 % (42-52); IG% 0.2 %; LYMPH ABS # 0.42 K/uL (1.2-3.4); MEAN CELL VOLUME 86.6 fL (80-100); MEAN CORPUSCULAR HEMOGLOBIN 27.4 pg (25-34); MEAN CORPUSCULAR HGB CONC 31.7 g/dl (32-36); MEAN PLATELET VOLUME 10.9 fL (7.4-10.4); MONO % 1.8 %; NEUT % 90.8 %; PLATELET COUNT 246 K/uL (130-400); WHITE BLOOD COUNT 5.98 K/uL (4.8-10.8)
--- NOTE | 2017-01-28 07:38 | DIAGNOSTIC IMAGING REPORT ---
Brain MRI WITHOUT CONTRAST HISTORY: loss vision in left eye TECHNIQUE: Multiplanar multisequence MRI of the brain was performed without the use of contrast. COMPARISON STUDY: Brain MRI 03/15/2012. FINDINGS: Encephalomalacia within the right posterior temporal lobe consistent with an old right MCA territory infarct. A few small foci of increased signal at this location on the DWI sequences appears to represent T2 shine through. No definite acute infarct identified. Small amount of surrounding T2 signal at the infarct is consistent with gliosis. There is an additional small old infarct within the right frontal lobe high convexity. There is no mass, hematoma, midline shift. The ventricles are normal in size. There are few punctate old lacunar infarcts seen within the cerebellar hemispheres. The major vascular flow-voids at the skull base are well-maintained. No fluid levels within the paranasal sinuses. The mastoid air cells are clear. There are increased T1 signal within the old right MCA territory infarct is consistent with cortical laminar necrosis. This also demonstrates magnetic susceptibility likely representing old hemorrhagic products. IMPRESSION: Old right MCA territory infarcts as described above. No acute infarct. Electronically signed by: Dylon Michael M.D. 01/28/2017 7:37 AM Dictated Date/Time: 01/28/2017 7:31 AM
[2017-01-28] MEDS: ASPIRIN 325 MG ECTAB PO SCH (07:43)
[2017-01-28] MEDS: BISACODYL 5 MG TABEC PO SCH (07:43)
[2017-01-28] MEDS: GABAPENTIN 300 MG CAP PO SCH ×3 (07:43→20:04)
[2017-01-28] MEDS: TRIAMCINOLONE ACET 0.1% CR 15 GM TUBE EXT SCH ×2 (07:43→20:03)
[2017-01-28] MEDS: SENNA 8.6 MG TAB PO SCH (07:44)
--- NOTE | 2017-01-28 08:05 | Hospitalist Progress Note ---
Hospitalist Progress Note Date of Service Jan 28, 2017. (Cristy Severino PA-C) Subjective Pt evaluation today including: conversation w/ patient, conversation w/ family , physical exam, chart review, lab review, review of studies Pain: Substernal chest pain PO Intake: NPO Voiding: no voiding problems The patient was seen and examined this morning with his at bedside. He reports feeling pain substernally which is sore and constant, he c/o of worse pain with a cough. The pain there started last Wednesday, got worse yesterday, and is still present now. He has not taken anything for the pain, although has tylenol ordered. He has been up and ambulating with assistance to the restroom , but still feels short of breath, has a cough which is productive with some dark colored mucous. He denies any fevers or chills. 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 He used to smoke but quit 8 years ago after his R hip surgery. Constitutional: + fatigue, No fever, No chills, No sweats Eyes: + problem reported (R eye blindness, worsening vision in the left), No diplopia ENT: No nasal symptoms, No sore throat, No trouble swallowing Respiratory: + cough, + sputum, + shortness of breath, + dyspnea on exertion , No dyspnea at rest Cardiovascular: + chest pain, No palpitations Abdomen: No pain, No nausea, No vomiting, No diarrhea, No constipation Musculoskeletal: No joint pain, No muscle pain, No swelling Neurologic: + balance problems (s/p R hip surgery in Sep), No weakness, No numbness/tingling Psychiatric: No anxiety, No insomnia Endo: + fatigue Skin: No rash, No itch (Cristy Severino, RAÚL) Objective Vital Signs Date Time Temp Pulse Resp B/P (MAP) Pulse Ox O2 Delivery O2 Flow Rate FiO2 01/28/17 06:59 36.4 57 18 118/80 (93) 93 Room Air 01/28/17 04:00 Room Air 01/28/17 03:45 36.5 67 20 103/62 (76) 94 Room Air 01/28/17 00:00 36.6 62 18 113/79 (90) 92 Room Air 01/28/17 00:00 Room Air 01/28/17 00:00 94 Room Air 01/27/17 19:15 36.4 75 18 113/71 94 Room Air 01/27/17 19:10 36.7 94 14 133/107 96 01/27/17 19:00 133/107 01/27/17 18:36 94 14 96 01/27/17 18:31 127/92 01/27/17 18:25 89 14 96 01/27/17 18:10 77 13 97 01/27/17 18:01 113/75 01/27/17 17:55 104 21 97 01/27/17 17:40 93 15 97 01/27/17 17:25 97 12 97 01/27/17 17:10 87 18 97 01/27/17 17:00 96/69 01/27/17 16:55 92 19 99 01/27/17 16:40 102 17 94 01/27/17 16:35 100 15 96 01/27/17 16:30 101/61 01/27/17 16:23 86/50 01/27/17 16:20 110 25 96 01/27/17 16:15 86/52 01/27/17 16:00 95 97/64 01/27/17 15:57 99 20 100/83 98 Room Air 01/27/17 15:57 100/83 01/27/17 14:30 104 22 94/58 93 Nasal Cannula 3.0 01/27/17 14:15 116 01/27/17 13:40 92 Nasal Cannula 3.0 01/27/17 13:38 105 20 95/67 89 Room Air 01/27/17 13:32 110 20 120/69 96 Room Air 01/27/17 13:11 96 Room Air 01/27/17 13:11 36.7 113 22 109/94 96 Room Air 01/27/17 13:11 96 Room Air 01/27/17 13:08 110 (Cristy Severino, HARJITC) Physical Exam General Appearance: WD/WN, + mild distress, + obese Eyes: PERRL, EOMI ENT: hearing grossly normal, pharynx normal Neck: supple, no JVD Respiratory/Chest: normal breath sounds, no respiratory distress, no accessory muscle use, + pertinent finding (+ chest tenderness over distal sternum with palpation, + diminished breath sounds at bases bilaterall, no wheezing, rhales or rhonchi. ) Cardiovascular: regular rate, rhythm, no murmur Abdomen: normal bowel sounds, non tender, soft, no organomegaly Extremities: non-tender, no pedal edema, no calf tenderness Neurologic/Psychiatric: alert, normal mood/affect, oriented x 3 Skin: normal color, warm/dry (Cristy Severino, RAÚL) Laboratory Results Last 24 Hours Test 01/27/17 12:50 01/27/17 13:18 01/27/17 17:32 01/28/17 00:54 White Blood Count 8.22 K/uL Red Blood Count 4.83 M/uL Hemoglobin 14.0 g/dL Hematocrit 42.3 % Mean Corpuscular Volume 87.6 fL Mean Corpuscular Hemoglobin 29.0 pg Mean Corpuscular Hemoglobin Concent 33.1 g/dl Platelet Count 246 K/uL Mean Platelet Volume 10.5 fL Neutrophils (%) (Auto) 68.3 % Lymphocytes (%) (Auto) 18.5 % Monocytes (%) (Auto) 11.4 % Eosinophils (%) (Auto) 1.1 % Basophils (%) (Auto) 0.5 % Neutrophils # (Auto) 5.61 K/uL Lymphocytes # (Auto) 1.52 K/uL Monocytes # (Auto) 0.94 K/uL Eosinophils # (Auto) 0.09 K/uL Basophils # (Auto) 0.04 K/uL RDW Standard Deviation 50.0 fL RDW Coefficient of Variation 15.7 % Immature Granulocyte % (Auto) 0.2 % Immature Granulocyte # (Auto) 0.02 K/uL Prothrombin Time 11.1 SECONDS Prothromb Time International Ratio 1.0 Activated Partial Thromboplast Time 31.2 SECONDS Partial Thromboplastin Ratio 1.2 Sodium Level 138 mmol/L Potassium Level 3.7 mmol/L Chloride Level 108 mmol/L Carbon Dioxide Level 21 mmol/L Anion Gap 9.0 mmol/L 19.0 mmol/L Blood Urea Nitrogen 17 mg/dl Creatinine 1.20 mg/dl Est Creatinine Clear Calc Drug Dose 82.7 ml/min Estimated GFR () 76.8 Estimated GFR (Non- 66.3 BUN/Creatinine Ratio 13.9 Random Glucose 95 mg/dl Calcium Level 8.9 mg/dl Total Bilirubin 0.3 mg/dl Direct Bilirubin < 0.1 mg/dl Aspartate Amino Transf (AST/SGOT) 13 U/L Alanine Aminotransferase (ALT/SGPT) 23 U/L Alkaline Phosphatase 211 U/L Total Creatine Kinase 71 U/L 54 U/L Creatine Kinase MB 0.7 ng/ml Creatine Kinase MB Ratio 1.0 Troponin I < 0.015 ng/ml < 0.015 ng/ml Total Protein 8.7 gm/dl Albumin 3.8 gm/dl Lipase 131 U/L Bedside Hemoglobin 15.3 g/dl Bedside Hematocrit 45 % Bedside Sodium 139 mEq/L Bedside Potassium 3.8 mEq/L Bedside Chloride 104 mEq/L Bedside Total CO2 21 mEq/l Bedside Blood Urea Nitrogen 18 mg/dl Bedside Creatinine 1.1 mg/dl Bedside Glucose (other) 103 mg/dl Bedside Ionized Calcium (Ronny) 1.23 mmol/l Triglycerides Level 108 mg/dl Cholesterol Level 203 mg/dl HDL Cholesterol 44 mg/dl LDL Cholesterol, Calculated 137 mg/dl VLDL Cholesterol, Calculated 22 mg/dl Cholesterol/HDL Ratio 4.6 Test 01/28/17 06:52 White Blood Count 5.98 K/uL Red Blood Count 4.70 M/uL Hemoglobin 12.9 g/dL Hematocrit 40.7 % Mean Corpuscular Volume 86.6 fL Mean Corpuscular Hemoglobin 27.4 pg Mean Corpuscular Hemoglobin Concent 31.7 g/dl Platelet Count 246 K/uL Mean Platelet Volume 10.9 fL Neutrophils (%) (Auto) 90.8 % Lymphocytes (%) (Auto) 7.0 % Monocytes (%) (Auto) 1.8 % Eosinophils (%) (Auto) 0.0 % Basophils (%) (Auto) 0.2 % Neutrophils # (Auto) 5.43 K/uL Lymphocytes # (Auto) 0.42 K/uL Monocytes # (Auto) 0.11 K/uL Eosinophils # (Auto) 0.00 K/uL Basophils # (Auto) 0.01 K/uL RDW Standard Deviation 50.1 fL RDW Coefficient of Variation 15.5 % Immature Granulocyte % (Auto) 0.2 % Immature Granulocyte # (Auto) 0.01 K/uL (Cristy Severino PA-C) Assessment and Plan 56 yo M with PMHx of CAD S/P multiple stents, recently developed left eye significant decreased visual acuity, developed cough and pulmonary congestion with developing chest pain prior to admission. Chest pain R/O ACS CAD s/p multiple stents - Cardiac biomarkers negative x 3 - Chest pain started on Wednesday, worsened yesterday, and is present at bedside and reproducible with palpation. He reports this is much worse with coughing. Added mucinex and tessalon pearls. Will also allow toradol for pain. - EKG reviewed from yesterday showing sinus tach with possible old anterior infarct. - D/c cards consult with the above. - Checking lipids, cholesterol is elevated at 207, not on statin therapy, discussion re diet and exercise needs to be held. DM II - HGbA1C = 6.3 - New diagnosis, will ask the inclusion special educator to see the patient. - Start ISS with accuchecks ACHS - Heart healthy, diabetic diet ordered. 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 Bazzi , has seen Dr. Monte in the past. He has a repeat outpatient f/u on February 16. - Brain MRA IMPRESSION: No significant stenosis, occlusion, or aneurysm within the [place] of [place]. - Brain MRI w/o contrast: IMPRESSION: Old right MCA territory infarcts as described above. No acute infarct. Acute bronchitis/ wheezing Hx of tobacco abuse - Cont Solumedrol IV 50 mg Q6H - Cont Azithromycin 500 mg IV Q12H, Ceftriaxone 1 g IV daily, duoneb treatments , o2 as needed - pt is currently on room air and without adventitious breath sounds. He has diminished breaths at the bases. Pt is using incentive spirometry. Obesity - BMI 36.0 - Diet and exercise encouraged DVT ppx: Teds, scds CODE STATUS: Full Code Disposition: From home, lives with in 1 floor home. (Cristy Severino PA-C) Attending Attestation: Pt seen/examined, chart reviewed, care plan d/w KEENAN Severino. I agree w/ the powers components of her documentation. Pt c/o left sided temporally located headache for 2 weeks about the same time his vision declined. he has b/l jaw pain as well cough mildly improved today but continues with chest soreness VSS no fever gen - nad head - very tender over left temporal artery to palpation eyes - PERRL, EOMI mouth - MMM heart - RRR lungs - mild-mod b/l wheezing, no rales abd - soft, NT ext - no edema A/P: 1. left sided headaches, temporal artery tenderness - sed rate 58, crp also elevated. Likely needs temporal artery bx to r/o TA. Continue steroids. 2. COPD w/ exacerbation - cont bronchodilators, abx, steroids, etc. Can likely de-escalate abx due to lack of pneumonia on imaging. 3. visual loss - subacute - spoke with [facility] - in 2011 was dx with b/l optic ischemic neuritis. This could be the culprit. temporal arteritis could be playing a role (ie central retinal artery occlusion) occipital lobe on MRI neg for acute stroke needs ophtho follow-up Greg Lynn MD (Greg Lynn MD)
[2017-01-28 08:06] LABS: ALT/SGPT 20 U/L (12-78); BLOOD UREA NITROGEN 20 mg/dl (7-18); CARBON DIOXIDE 24 mmol/L (21-32); CHLORIDE 109 mmol/L (98-107); GLUCOSE 160 mg/dl (70-99); MAGNESIUM 2.1 mg/dl (1.8-2.4); POTASSIUM 4.2 mmol/L (3.5-5.1); SODIUM 139 mmol/L (136-145)
[2017-01-28 08:07] LABS: ESTIMATED AVERAGE GLUCOSE 134 mg/dl; HA1C FLAG Normal (Normal)
[2017-01-28 08:10] LABS: ALB/GLOB RATIO 0.7 (0.9-2)
[2017-01-28 08:11] LABS: ALKALINE PHOSPHATASE 167 U/L (45-117); AST/SGOT 11 U/L (15-37); PHOSPHORUS 2.6 mg/dl (2.5-4.9)
[2017-01-28 08:29] LABS: CALCIUM 9.3 mg/dl (8.5-10.1)
[2017-01-28] MEDS ORDERED: DEXTROSE 50% 50 ML SYR IV PRN (11:00)
[2017-01-28] MEDS ORDERED: GLUCOSE 10 TABS/TUBE PO PRN (11:00)
[2017-01-28] MEDS ORDERED: COUGH DROP (SUGAR FREE) LOZ 24 LOZ/1 BOX ONE (11:08)
[2017-01-28] MEDS: GUAIFENESIN 600 MG TABCR PO SCH ×2 (11:11→20:04)
[2017-01-28] MEDS: KETOROLAC TROMETHAMINE 30 MG/ML VIAL IV PRN ×2 (11:13→18:29)
[2017-01-28] MEDS ORDERED: COUGH DROP (SUGAR FREE) LOZ 24 LOZ/1 BOX PO PRN (11:15)
[2017-01-28] MEDS ORDERED: GLUCAGON FOR INJ 1 MG VIAL SQ PRN (11:15)
[2017-01-28] MEDS ORDERED: GLUCOSE 40% GEL 15 GM TUBE PO PRN (11:15)
[2017-01-28] MEDS ORDERED: NURSING DECISION MEDICATION ORDER SCH (11:15)
[2017-01-28] MEDS: INSULIN ASPART 100 UNITS/ML 3 ML PEN SC SCH ×3 (12:08→21:46)
[2017-01-28] MEDS: BENZONATATE 100MG CAP PO SCH ×2 (14:01→20:04)
[2017-01-28] MEDS: SODIUM CHLORIDE 0.9% 1000ML 1,000 ML IV SCH (15:21)
[2017-01-28] MEDS: ACETAMINOPHEN 325 MG TAB PO PRN (17:37)
[2017-01-28] MEDS: CEFTRIAXONE SOD INJ 1 GM in DEXTROSE 5% ADD-VANTAGE 50ML 50 ML IV SCH (20:03)
[2017-01-28] MEDS: AZITHROMYCIN IV 500 MG in DEXTROSE 5% 250ML 250 ML IV SCH (21:41)
[2017-01-29] VITALS (11 sets, daily range): BP systolic 109–139; BP diastolic 64–89; PULSE 60–99; TEMP 36.3–36.6; O2SAT 92–99
[2017-01-29] MEDS: METHYLPREDNISOLONE IV 50 MG in SYRINGE 0 ML IV SCH ×4 (01:48→20:28)
[2017-01-29] MEDS: KETOROLAC TROMETHAMINE 30 MG/ML VIAL IV PRN ×3 (06:15→22:12)
[2017-01-29] MEDS: HEPARIN SOD 5000 UNIT/0.5 ML CARP SQ SCH ×3 (06:19→21:18)
[2017-01-29] MEDS: ALBUT/IPRATROP 3MG/0.5MG NEB 3 ML VIAL INH SCH ×2 (06:55→11:01)
[2017-01-29] MEDS: ACETAMINOPHEN 325 MG TAB PO PRN (07:34)
[2017-01-29] MEDS: TRIAMCINOLONE ACET 0.1% CR 15 GM TUBE EXT SCH ×2 (07:35→20:28)
[2017-01-29] MEDS: GUAIFENESIN 600 MG TABCR PO SCH ×2 (07:36→20:29)
[2017-01-29] MEDS: BENZONATATE 100MG CAP PO SCH ×3 (07:36→20:29)
[2017-01-29] MEDS: SENNA 8.6 MG TAB PO SCH (07:36)
[2017-01-29] MEDS: GABAPENTIN 300 MG CAP PO SCH ×3 (07:37→20:29)
[2017-01-29] MEDS: BISACODYL 5 MG TABEC PO SCH (07:37)
[2017-01-29] MEDS: ASPIRIN 325 MG ECTAB PO SCH (07:37)
--- NOTE | 2017-01-29 08:26 | Hospitalist Progress Note ---
Hospitalist Progress Note Date of Service Jan 29, 2017. (Cristy Severino PA-C) Subjective Pt evaluation today including: conversation w/ patient, physical exam, chart review, lab review, review of studies Pain: Left temporal pain PO Intake: Good Voiding: no voiding problems The patient was seen and examined this morning. Pt reports not feeling well. He has complaints of chest discomfort like yesterday which is worse with cough. The cough is dry, and has no sputum production, he denies feeling short of breath at rest or with ambulation to the restroom. He says the headache is prominent on the left, and that his vision is worse this morning compared to yesterday. It is blurred, no focal tunneling or diplopia. He also reports having a posterior headache as well, "like my neck needs to crack". He denies any neck stiffness or decreased range of movement. He is able to walk around without difficulty. Pt ate breakfast this morning. He denies lightheadedness or dizziness. Additional Comments: ROS: 10 point ROS reviewed and otherwise negative (Cristy Severino PA-C) Objective Vital Signs Date Time Temp Pulse Resp B/P (MAP) Pulse Ox O2 Delivery O2 Flow Rate FiO2 01/29/17 07:00 36.3 60 20 131/86 (101) 94 Room Air 01/29/17 06:55 75 14 96 Room Air 01/29/17 04:22 36.5 90 18 119/69 (86) 95 Room Air 01/29/17 04:00 Room Air 01/29/17 00:00 Room Air 01/28/17 23:21 36.3 98 18 117/67 (84) 93 Room Air 01/28/17 20:00 Room Air 01/28/17 19:53 69 14 93 Room Air 01/28/17 19:39 36.7 94 18 123/81 (95) 94 Room Air 01/28/17 16:00 Room Air 01/28/17 14:47 68 14 96 Room Air 01/28/17 14:41 36.4 71 18 116/84 (95) 93 Room Air 01/28/17 12:00 Room Air 01/28/17 11:14 36.4 90 20 117/81 (93) 91 Room Air (Cristy Severino PA-C) Physical Exam Notes: General Appearance: WD/WN, + mild distress, + obese Eyes: PERRL, EOMI ENT: hearing grossly normal, pharynx normal Neck: supple, no JVD Respiratory/Chest: normal breath sounds, no respiratory distress, no accessory muscle use, + pertinent finding (+ chest tenderness over distal sternum with palpation, + diminished breath sounds at bases bilaterall, no wheezing, rhales or rhonchi. ) Cardiovascular: regular rate, rhythm, no murmur Abdomen: normal bowel sounds, non tender, soft, no organomegaly Extremities: non-tender, no pedal edema, no calf tenderness Neurologic/Psychiatric: alert, normal mood/affect, oriented x 3 Skin: normal color, warm/dry (Cristy Severino PA-C) Laboratory Results Last 24 Hours Test 01/28/17 11:20 01/28/17 15:35 01/28/17 16:22 01/28/17 20:42 Bedside Glucose 163 mg/dl 214 mg/dl 279 mg/dl Erythrocyte Sedimentation Rate 58 mm/hr C-Reactive Protein 2.87 mg/dl Test 01/29/17 07:17 Bedside Glucose 129 mg/dl (Cristy Severino PA-C) Assessment and Plan 56 yo M with PMHx of CAD S/P multiple stents, recently developed left eye significant decreased visual acuity, developed cough and pulmonary congestion with developing chest pain prior to admission. Chest pain likely musculoskeletal dt coughing- resolving, not ACS. CAD s/p multiple stents - Cardiac biomarkers negative x 3 - Chest pain started on Wednesday, worsened yesterday, and is present at bedside and reproducible with palpation. He reports this is much worse with coughing. Added mucinex and tessalon pearls. - EKG reviewed from yesterday showing sinus tach with possible old anterior infarct. - D/c cards consult with the above. - Checking lipids, cholesterol is elevated at 207, not on statin therapy, discussion re diet and exercise needs to be held. Simvastatin was stopped 2 weeks ago due to a rash he developed over arms, legs, chest and neck. This is still mildly present over various extremities. Headache, worsened L eye vision, hx of bilateral optic neuritis ?Optic arteritis, left - I spoke with [facility] yesterday and Dr. Horn did not feel consultation in the hospital is warranted. I have consulted general surgery for possible optic arteritis, Dr. Lopez. - Toradol on for pain- pt requiring this for left temporal headache. - Steriods on board for bronchitis likely helping if this is optic arteritis DM II - HGbA1C = 6.3 - New diagnosis, will ask the elementary educator to see the patient. - Start ISS with accuchecks ACHS - Heart healthy, diabetic diet ordered. 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 Bazzi , has seen Dr. Monte in the past. He has a repeat outpatient f/u on February 16. - Brain MRA IMPRESSION: No significant stenosis, occlusion, or aneurysm within the [place]. - Brain MRI w/o contrast: IMPRESSION: Old right MCA territory infarcts as described above. No acute infarct. Acute bronchitis/ wheezing Hx of tobacco abuse - Cont Solumedrol IV 50 mg Q6H - Cont Azithromycin 500 mg IV Q12H, Ceftriaxone 1 g IV daily, duoneb treatments , o2 as needed - pt is currently on room air and without adventitious breath sounds. He has diminished breaths at the bases. Pt is using incentive spirometry. Obesity - BMI 36.0 - Diet and exercise encouraged DVT ppx: Teds, scds CODE STATUS: Full Code Disposition: From home, lives with in 1 floor home, unknown discharge date. (Cristy Severino, RAÚL) Attending Attestation: Pt seen/examined, chart reviewed, care plan d/w KEENAN Severino. I agree w/ the powers components of her documentation. Continues with left sided temporal headache; now his upper neck/occiput is bothering him, too. His left eye vision is worse today than yesterday. His cough is slightly better. VSS no fever gen - nad head - very tender over left temporal artery to palpation eyes - PERRL, EOMI neck - no meningismus mouth - MMM heart - RRR lungs - mild-mod b/l wheezing - maybe slightly better today; no rales abd - soft, NT ext - no edema A/P: 1. left sided headaches, temporal artery tenderness - sed rate 58, crp also elevated. Temporal artery bx to r/o TA scheduled for Wednesday. Continue steroids. 2. COPD w/ exacerbation - cont bronchodilators, abx, steroids, etc. Can likely de-escalate abx due to lack of pneumonia on imaging. 3. visual loss - subacute - spoke with [facility] - in 2011 was dx with b/l optic ischemic neuritis. This could be the culprit. temporal arteritis could be playing a role (ie central retinal artery occlusion) occipital lobe on MRI neg for acute stroke vision, however, worse today will speak with ophtho again about getting dilated exam in hospital 4. headache - try toradol x 1 Greg Lynn MD (Greg Lynn MD)
[2017-01-29] MEDS: INSULIN ASPART 100 UNITS/ML 3 ML PEN SC SCH ×4 (08:33→21:00)
--- NOTE | 2017-01-29 10:12 | Medical Consult ---
Consultation Date of Consultation: Jan 29, 2017. Attending Physician: Greg Lynn MD History of Present Illness 56 y/o male admitted 2 days ago for chest pain. ACS ruled out, being treated for bronchitis with IV steroids and antibiotics. Also c/o headache and blurred vision of left eye for "a couple weeks." Toradol provided some relief but WHITAKER is constant. Has longstanding visual loss in right eye from CVA. We were asked to see for temporal artery biopsy. Past Medical/Surgical History Medical Problems: (1) ALCOHOL ABUSE-UNSPEC (2) AORTOCORONARY BYPASS (3) Bronchitis (4) CORONARY ATHEROSCLEROSIS OF [place] CORONARY VESSEL (5) DIAB CONNER WO COMPL, TYPE II OR UNSPEC TYPE, NOT UNCNTRLD (6) DIVERTICULOSIS COLON (W/O MENT OF HEMORRHAGE) (7) ESOPHAGEAL REFLUX (8) Heart Disease (9) Hip Replacement (10) HISTORY OF TOBACCO USE (11) HYPERLIPIDEMIA NEC/NOS (12) HYPOTHYROIDISM NOS (13) LEGIONNAIRES' DISEASE (14) MSSA (methicillin susceptible Staphylococcus aureus) infection (15) MSSA (methicillin susceptible Staphylococcus aureus) septicemia (16) Stents x5 (17) ULCERATIVE COLITIS, UNSPECIFIED Family History Heart disease Social History Smoking Status: Never Smoker Drug Use: none Marital Status: Housing Status: lives with family Occupation Status: employed Allergies Coded Allergies: No Known Allergies (Verified , 01/27/17) Current Inpatient Medications Current Inpatient Medications Medications (Trade) Dose Ordered Sig/Blair Route Start Time Stop Time Status Last Admin Dose Admin Ioversol (Optiray 320) 125 ml UD PRN IV 01/27/17 14:45 01/31/17 14:44 Aspirin (Ecotrin Tab) 325 mg QAM PO 01/28/17 09:00 02/27/17 08:59 01/29/17 07:37 325 MG Bisacodyl (Dulcolax Tab) 5 mg DAILY PO 01/28/17 09:00 02/27/17 08:59 01/29/17 07:37 5 MG Gabapentin (Neurontin Cap) 300 mg TID PO 01/27/17 21:00 02/26/17 20:59 01/29/17 07:37 300 MG Senna (Senokot Tab) 8.6 mg DAILY PO 01/28/17 09:00 02/27/17 08:59 01/29/17 07:36 8.6 MG Triamcinolone Acetonide (Kenalog 0.1% Cream) 1 appln BID EXT 01/27/17 21:00 02/26/17 20:59 01/29/17 07:35 1 APPLN Heparin Sodium (Porcine) (Heparin Sq 5000 Unit/0.5ml) 5,000 unit Q8 SQ 01/27/17 22:00 02/26/17 21:59 01/29/17 06:19 5,000 UNIT Sodium Chloride 1,000 ml @ 50 mls/hr Q20H IV 01/27/17 20:00 02/26/17 19:59 01/28/17 15:21 50 MLS/HR Acetaminophen (Tylenol Tab) 650 mg Q4H PRN PO 01/27/17 17:00 02/26/17 16:59 01/29/17 07:34 650 MG Al Hydrox/Mg Hydrox/Simethicone (Maalox Max Susp) 15 ml Q4H PRN PO 01/27/17 17:00 02/26/17 16:59 Magnesium Hydroxide (Milk Of Magnesia Susp) 30 ml Q12H PRN PO 01/27/17 17:00 02/26/17 16:59 Zolpidem Tartrate (Ambien Tab) 5 mg HSZ PRN PO 01/27/17 17:00 02/26/17 16:59 Nitroglycerin (Nitrostat Tab) 0.4 mg UD PRN SL 01/27/17 17:00 02/26/17 16:59 Polyethylene (Miralax Powder Packet) 17 gm DAILY PRN PO 01/27/17 17:00 02/26/17 16:59 Methylprednisolone Sodium Succinate 50 mg/Syringe 0.8 ml @ 1.5 mls/min Q6H IV 01/27/17 20:00 02/26/17 19:59 01/29/17 07:35 1.5 MLS/MIN Albuterol/ Ipratropium (Duoneb) 3 ml QIDR INH 01/27/17 20:00 02/26/17 19:59 01/29/17 06:55 3 ML Azithromycin 500 mg/Dextrose 255 ml @ 125 mls/hr Q24H IV 01/27/17 22:00 02/03/17 21:59 01/28/17 21:41 125 MLS/HR Ceftriaxone Sodium 1 gm/ Dextrose 50 ml @ 100 mls/hr Q24H IV 01/27/17 20:00 02/03/17 19:59 01/28/17 20:03 100 MLS/HR Albuterol/ Ipratropium (Duoneb) 3 ml Q2H PRN INH 01/27/17 20:00 02/26/17 19:59 Benzonatate (Tessalon Perles Cap) 100 mg TID PO 01/28/17 14:00 02/27/17 13:59 01/29/17 07:36 100 MG Guaifenesin (Mucinex Contr Rel Tab) 600 mg Q12 PO 01/28/17 11:00 02/27/17 10:59 01/29/17 07:36 600 MG Ketorolac Tromethamine (Toradol Inj) 30 mg Q6H PRN IV 01/28/17 10:45 02/02/17 10:44 01/29/17 06:15 30 MG Insulin Aspart (novoLOG ASPART) SLIDING SCALE If C... ACHS SC 01/28/17 11:00 02/27/17 10:59 01/29/17 08:33 6 UNITS Glucose (Glucose Chew Tab) 4-8 Tablets 4 Tabl... UD PRN PO 01/28/17 11:00 02/27/17 10:59 Dextrose (Dextrose 50% 50ML Syringe) 25-50ML OF 50% DW IV FOR... UD PRN IV 01/28/17 11:00 02/27/17 10:59 Glucose (Glucose 40% Gel) 15-30 GRAMS 15 GRAMS... UD PRN PO 01/28/17 11:15 02/27/17 11:14 Glucagon (Glucagon Inj) 1 mg UD PRN SQ 01/28/17 11:15 02/27/17 11:14 Menthol (Nice Yi) 1 yi PRN PRN PO 01/28/17 11:15 02/27/17 11:14 Review of Systems Respiratory: + cough, + sputum Cardiovascular: + chest pain Neurologic: No memory loss, No weakness, No numbness/tingling Physical Exam Date Time Temp Pulse Resp B/P (MAP) Pulse Ox O2 Delivery O2 Flow Rate FiO2 01/29/17 08:00 94 Room Air 6/23/17 07:00 36.3 60 20 131/86 (101) 94 Room Air 01/29/17 06:55 75 14 96 Room Air 01/29/17 04:22 36.5 90 18 119/69 (86) 95 Room Air 01/29/17 04:00 Room Air 01/29/17 00:00 Room Air 01/28/17 23:21 36.3 98 18 117/67 (84) 93 Room Air 01/28/17 20:00 Room Air 01/28/17 19:53 69 14 93 Room Air 01/28/17 19:39 36.7 94 18 123/81 (95) 94 Room Air 01/28/17 16:00 Room Air 01/28/17 14:47 68 14 96 Room Air 01/28/17 14:41 36.4 71 18 116/84 (95) 93 Room Air 01/28/17 12:00 Room Air 01/28/17 11:14 36.4 90 20 117/81 (93) 91 Room Air Head: normocephalic, atraumatic, + pertinent finding (left temporal tenderness) Neck: supple Laboratory Results Last 24 Hours Test 01/28/17 11:20 01/28/17 15:35 01/28/17 16:22 01/28/17 20:42 Bedside Glucose 163 mg/dl 214 mg/dl 279 mg/dl Erythrocyte Sedimentation Rate 58 mm/hr C-Reactive Protein 2.87 mg/dl Test 01/29/17 07:17 Bedside Glucose 129 mg/dl Assessment & Plan headache, visual changes, elevated ESR He had full breakfast this morning. May try to arrange for biopsy in the OR in the next few days, or can be done in the next 1-2 weeks as an outpatient.
[2017-01-29] MEDS ORDERED: NURSING VERBAL MED ORDER ONE (10:30)
[2017-01-29] MEDS ORDERED: ARTIFICIAL TEARS OP SOLN OP PRN ×2 (10:45)
[2017-01-29] MEDS: SODIUM CHLORIDE 0.9% 1000ML 1,000 ML IV SCH (12:14)
[2017-01-29] MEDS: AZITHROMYCIN 250 MG TAB PO SCH (16:30)
[2017-01-29] MEDS: IPRATROPIUM BROMIDE/ALBUTEROL respimat INH INH SCH ×2 (16:31→20:28)
[2017-01-29] MEDS ORDERED: KETOROLAC TROMETHAMINE 30 MG/ML VIAL IV ONE (17:15)
[2017-01-29] MEDS: CEFTRIAXONE SOD INJ 1 GM in DEXTROSE 5% ADD-VANTAGE 50ML 50 ML IV SCH (20:27)
[2017-01-30] VITALS (9 sets, daily range): BP systolic 114–152; BP diastolic 73–87; PULSE 59–91; TEMP 36.4–36.5; O2SAT 91–97
[2017-01-30] MEDS: METHYLPREDNISOLONE IV 50 MG in SYRINGE 0 ML IV SCH ×4 (01:58→20:30)
[2017-01-30] MEDS: HEPARIN SOD 5000 UNIT/0.5 ML CARP SQ SCH ×3 (05:56→21:01)
[2017-01-30 06:11] LABS: HEMATOCRIT 38.7 % (42-52); MEAN CELL VOLUME 85.2 fL (80-100); MEAN CORPUSCULAR HEMOGLOBIN 27.8 pg (25-34); MEAN CORPUSCULAR HGB CONC 32.6 g/dl (32-36); MEAN PLATELET VOLUME 10.9 fL (7.4-10.4); PLATELET COUNT 243 K/uL (130-400); RED BLOOD COUNT 4.54 M/uL (4.7-6.1); WHITE BLOOD COUNT 14.09 K/uL (4.8-10.8)
[2017-01-30] MEDS: TRIAMCINOLONE ACET 0.1% CR 15 GM TUBE EXT SCH ×2 (07:31→20:34)
[2017-01-30] MEDS: KETOROLAC TROMETHAMINE 30 MG/ML VIAL IV PRN ×3 (07:31→21:00)
[2017-01-30] MEDS: SODIUM CHLORIDE 0.9% 1000ML 1,000 ML IV SCH (07:35)
[2017-01-30] MEDS: IPRATROPIUM BROMIDE/ALBUTEROL respimat INH INH SCH ×4 (07:37→20:29)
[2017-01-30] MEDS: AZITHROMYCIN 250 MG TAB PO SCH (07:37)
[2017-01-30] MEDS: ASPIRIN 325 MG ECTAB PO SCH (07:38)
[2017-01-30] MEDS: GABAPENTIN 300 MG CAP PO SCH ×3 (07:38→20:29)
[2017-01-30] MEDS: BISACODYL 5 MG TABEC PO SCH (07:38)
[2017-01-30] MEDS: SENNA 8.6 MG TAB PO SCH (07:38)
[2017-01-30] MEDS: GUAIFENESIN 600 MG TABCR PO SCH ×2 (07:38→20:29)
[2017-01-30] MEDS: BENZONATATE 100MG CAP PO SCH ×3 (07:43→20:29)
[2017-01-30] MEDS: INSULIN ASPART 100 UNITS/ML 3 ML PEN SC SCH ×4 (08:19→21:02)
[2017-01-30] MEDS ORDERED: PERFLUTREN LIPID MICROSPHERE (DEFINITY) IV ONE (09:23)
[2017-01-30] MEDS ORDERED: BUTALBITAL/ACETAMIN/CAFFEINE TAB PO STA (09:30)
--- NOTE | 2017-01-30 13:06 | DIAGNOSTIC IMAGING REPORT ---
ULTRASOUND OF THE CAROTID ARTERIES CLINICAL HISTORY: Left-sided visual loss. COMPARISON STUDY: Carotid artery ultrasound dated 03/30/2012. TECHNIQUE: Real-time, grayscale, and color Doppler sonography of the carotid arteries is performed. Images are reviewed in the transverse and longitudinal planes. FINDINGS: Blood pressures were not assessed due to the presence of IV catheters. The carotid arteries are patent bilaterally and demonstrate antegrade flow. There is minimal atherosclerotic plaque identified. Normal doppler arterial waveforms are seen throughout. Velocity measurements are listed below. Common carotid peak systolic velocity (cm/sec): RIGHT: 50 LEFT: 56 ICA proximal peak systolic velocity (cm/sec): RIGHT: 38 LEFT: 44 ICA mid peak systolic velocity (cm/sec): RIGHT: 36 LEFT: 43 ICA distal peak systolic velocity (cm/sec): RIGHT: 27 LEFT: 62 ICA/CC peak systolic ratio: RIGHT: 0.8 LEFT: 1.1 Antegrade flow was shown in the vertebral arteries. The external carotid arteries are patent. IMPRESSION: 1. There is no sonographic evidence of hemodynamically significant stenosis in the right or left carotid arterial system. 2. Antegrade flow is shown in the vertebral arteries. Electronically signed by: Yosi Carcamo M.D. 01/30/2017 1:04 PM Dictated Date/Time: 01/30/2017 1:03 PM
--- NOTE | 2017-01-30 14:20 | ECHOCARDIOGRAM REPORT ---
*NOTICE TO RECEIVING LIBERTARIAN AGENCY This information is strictly Confidential and protected under [place] law. [place] law prohibits you from making any further disclosure of this information unless further disclosure is expressly permitted by the written consent of the person to whom it pertains or is authorized by law. A general authorization for the release of medical or other information is not sufficient for this purpose. Hospital accepts no responsibility if the information is made available to any other person, INCLUDING THE PATIENT. Interpretation Summary * Name: IGNACIO TREVIÑO Study Date: 01/30/2017 08:55 AM BP: 152/87 mmHg * Patient Location: [facility]\S\N275\S\1 HR: 59 * : 1960 (M/d/yyyy) Gender: Male Height: 69 in * Age: 56 yrs Ethnicity: [place] Weight: 251 lb * Ordering Physician: Greg Lynn * Performed By: Naomi Shoemaker * * Reason For Study: LEFT EYE BLINDNESS, EVAL FOR SOURCE OF EMBOLUS * BSA: 2.3 m2 * -- Conclusions -- * 1. Moderately dilated LV. Borderline concentric LVH. * 2. Mild to moderate global LV dysfunction. LVEF 40-45%. 3. Normal RV size and function. * 4. No significant valvular abnormalities. * 5. Negative bubble study for interatrial shunt. * 6. Compared with prior study on 07/06/2015: LV function has improved. Procedure Details * A complete two-dimensional transthoracic echocardiogram was performed (2D, M-mode, Doppler and color flow Doppler). * The study was technically difficult. * A saline contrast injection was performed to assess for cardiac shunting. * The injection was performed through an intravenous line in the right arm. * The attending nurse who injected the saline contrast was ROCÍO DALAL RN. * A total of 20 cc of agitated saline was given. * A contrast injection of Definity was performed to improve assessment of LV function. * Contrast was injected into an intravenous site in the right arm. * One vial of Definity ultrasound contrast was diluted in normal saline to a total volume of 10 ml. A total of '4' ml of solution was administered during imaging. * Lot # [id number] of Definity utilized for procedure. * Expiration date 02/23. * The attending nurse who injected the contrast agent was ROCÍO DALAL RN. Left Ventricle * The left ventricle is moderately dilated. * There is borderline concentric left ventricular hypertrophy. * Ejection Fraction = 40-45%. * There is mild to moderate global hypokinesis of the left ventricle. Right Ventricle * The right ventricle is grossly normal size. * The right ventricular systolic function is normal as assessed by tricuspid annular plane systolic excursion (TAPSE) (normal >1.5 cm). Atria * The left atrial size is normal. * Borderline right atrial enlargement. * Injection of contrast documented no interatrial shunt. Mitral Valve * The mitral valve is grossly normal. * There is no mitral valve stenosis. * Significant mitral regurgitation is absent. Tricuspid Valve * The tricuspid valve is not well visualized. * Significant tricuspid regurgitation is absent. Aortic Valve * The aortic valve opens well. * The aortic valve is not well visualized. * No hemodynamically significant valvular aortic stenosis. * There is no significant aortic regurgitation. Pulmonic Valve * The pulmonary valve is inadequately visualized, but the Doppler data is adequate for interpretation. * Pulmonic stenosis is absent. * There is no significant pulmonary regurgitation. Great Vessels * The aortic root and proximal ascending aorta are normal sized. Pericardium/Pleural * There is no pericardial effusion. Great Vessels * Normal inferior vena cava size and collapsability with sniff indicates a normal right atrial pressure of 3 mmHg MMode 2D Measurements and Calculations IVSd 1.0 cm IVSs 1.3 cm LVIDd 6.5 cm LVIDs 5.1 cm LVPWd 1.4 cm LVPWs 1.7 cm IVS/LVPW 0.71 FS 21.6 % EDV(Teich) 215.5 ml ESV(Teich) 123.4 ml EF(Teich) 42.7 % EDV(cubed) 273.8 ml ESV(cubed) 132.1 ml EF(cubed) 51.8 % % IVS thick 23.3 % % LVPW thick 15.6 % LV mass(C)d 369.1 grams LV mass(C)dI 162.2 grams/m\S\2 LV mass(C)s 318.3 grams LV mass(C)sI 139.9 grams/m\S\2 CO(Teich) 6.2 l/min CI(Teich) 2.7 l/min/m\S\2 SV(Teich) 92.1 ml SI(Teich) 40.5 ml/m\S\2 CO(cubed) 9.5 l/min CI(cubed) 4.2 l/min/m\S\2 SV(cubed) 141.7 ml SI(cubed) 62.3 ml/m\S\2 EPSS 1.3 cm ACS 1.8 cm asc Aorta Diam 3.6 cm LVOT diam 2.2 cm LVOT area 3.8 cm\S\2 LVAd ap4 45.6 cm\S\2 LVLd ap4 9.3 cm EDV(MOD-sp4) 184.0 ml LVAs ap4 31.7 cm\S\2 LVLs ap4 8.3 cm ESV(MOD-sp4) 102.0 ml EF(MOD-sp4) 44.6 % LVAd ap2 43.0 cm\S\2 LVLd ap2 9.2 cm EDV(MOD-sp2) 166.0 ml LVAs ap2 30.9 cm\S\2 LVLs ap2 8.5 cm ESV(MOD-sp2) 90.2 ml EF(MOD-sp2) 45.7 % CO(MOD-sp4) 5.5 l/min CI(MOD-sp4) 2.4 l/min/m\S\2 SV(MOD-sp4) 82.0 ml SI(MOD-sp4) 36.0 ml/m\S\2 CO(MOD-sp2) 5.1 l/min CI(MOD-sp2) 2.2 l/min/m\S\2 SV(MOD-sp2) 75.8 ml SI(MOD-sp2) 33.3 ml/m\S\2 Doppler Measurements and Calculations MV E max bridget 95.6 cm/sec MV A max bridget 95.6 cm/sec MV E/A 1.0 MV dec time 0.25 sec Ao V2 max 129.0 cm/sec Ao max PG 6.7 mmHg Ao max PG (full) 3.3 mmHg JUDD(V,A) 2.7 cm\S\2 JUDD(V,D) 2.7 cm\S\2 LV V1 max PG 3.4 mmHg LV V1 max 91.7 cm/sec PA V2 max 87.3 cm/sec PA max PG 3.0 mmHg
[2017-01-30] MEDS: ACETAMINOPHEN 325 MG TAB PO PRN (16:52)
[2017-01-30] MEDS: CEFTRIAXONE SOD INJ 1 GM in DEXTROSE 5% ADD-VANTAGE 50ML 50 ML IV SCH (20:30)
[2017-01-31] VITALS (9 sets, daily range): BP systolic 124–143; BP diastolic 71–89; PULSE 61–78; TEMP 36.4–36.6; O2SAT 94–98
[2017-01-31] MEDS: ACETAMINOPHEN 325 MG TAB PO PRN (00:16)
--- NOTE | 2017-01-31 00:20 | Progress Note ---
Subjective Date of Service: late entry for visit January 30, 2017. Subjective Pt evaluation today including: conversation w/ patient, physical exam, chart review, lab review, review of studies (echo, carotid duplex, etc), conversation w/ medical economics consultant (ophthomology), review of inpatient medication list Pain: headache - left temporal area, now back of head as well PO Intake: normal Voiding: no voiding problems still c/o blurry vision in left eye had visual disturbance last pm and this am as well - seeing blue dots also with floaters headache continues despite use of steroids & toradol cough/wheezing both improved Problem List Medical Problems: (1) Atopic dermatitis Status: Acute (2) Bronchitis Status: Acute (3) CHF (congestive heart failure) Status: Acute (4) Elevated troponin Status: Acute (5) Fever Status: Acute (6) GI bleed Status: Acute (7) Occluded PICC line Status: Acute (8) Precordial chest pain Status: Acute Review of Systems Constitutional: No fever, No chills Cardiac: No chest pain Abdomen: No pain Objective Vital Signs Date Time Temp Pulse Resp B/P (MAP) Pulse Ox O2 Delivery O2 Flow Rate FiO2 01/31/17 00:02 36.6 69 20 128/77 (94) 94 Room Air 01/30/17 20:01 Room Air 01/30/17 19:52 36.5 67 20 114/73 (87) 94 Room Air 01/30/17 18:21 96 Room Air 3.0 01/30/17 16:00 96 Room Air 01/30/17 14:42 36.4 69 18 125/85 (98) 96 Room Air 01/30/17 12:00 97 Room Air 01/30/17 11:28 36.5 62 20 131/79 (96) 95 Room Air 01/30/17 08:00 95 Room Air 01/30/17 07:54 36.4 59 18 152/87 (108) 95 Room Air 01/30/17 04:00 Room Air 01/30/17 04:00 36.4 91 20 124/76 (92) 91 Room Air Physical Exam General Appearance: no apparent distress, + pertinent finding (overall looks better today) Eyes: PERRL, EOMI, + pertinent finding (fundoscopic exam - optic disc on left appears normal w/o papilledema) ENT: pharynx normal, + pertinent finding (still w/ tenderness over left temporal artery) Neck: no JVD Respiratory/Chest: no respiratory distress, no accessory muscle use, + wheezing (but improved from prior exams) Cardiovascular: regular rate, rhythm, no gallop, no murmur Abdomen: normal bowel sounds, non tender, soft, no organomegaly Extremities: no pedal edema Neurologic/Psychiatric: alert, oriented x 3 Laboratory Results Last 24 Hours Test 01/30/17 05:56 01/30/17 07:45 01/30/17 11:26 01/30/17 16:44 White Blood Count 14.09 K/uL Red Blood Count 4.54 M/uL Hemoglobin 12.6 g/dL Hematocrit 38.7 % Mean Corpuscular Volume 85.2 fL Mean Corpuscular Hemoglobin 27.8 pg Mean Corpuscular Hemoglobin Concent 32.6 g/dl RDW Standard Deviation 48.9 fL RDW Coefficient of Variation 15.7 % Platelet Count 243 K/uL Mean Platelet Volume 10.9 fL Bedside Glucose 145 mg/dl 155 mg/dl 120 mg/dl Test 01/30/17 20:31 Bedside Glucose 171 mg/dl Assessment and Plan 56yo male with: 1. left sided headaches, temporal artery tenderness - sed rate 58, crp also elevated. Temporal artery bx to r/o TA scheduled for Wednesday. Continue steroids. Despite steroids & toradol his headaches have continued. Gave fioricet today w/o relief. Could he have a migrainous or cluster h/a component? MRI brain w/o acute pathology. 2. COPD w/ exacerbation - improving. Cut steroids to 40mg q12h. cont bronchodilator day #3 of zithromax day #4 of rocephin - stop the rocephin finish 5-day course of zithromax 3. left eye visual loss - subacute - spoke with [facility] - in 2011 was dx with b/l optic ischemic neuritis. his symptoms have persisted and worsened while hospitalized. Spoke with Dr. Rose who came and consulted today. Dilated eye exam showed no retinal detachment and fairly normal optic disc. vision in the L eye was 20/40, right eye 20/800. echo w/o source of embolus. carotids w/o ICA stenosis. 4. headache - see above. 5. h/o chronic systolic CHF - echo repeated - EF 40-45%. compensated. 6. DVT proph - heparin TID. 7. h/o ulcerative colitis - cont mesalamine. 8. T2DM - controlled. 9. h/o hypothyroidism - TSH about 10 days ago was normal without medication. 10. CAD - no ischemic symptoms at this time. Has resulting ischemic cardiomyopathy. Continued [facility] stay due to: inadequate oral pain control, multiple IV medications needed Discharge planning: home
[2017-01-31] MEDS: HEPARIN SOD 5000 UNIT/0.5 ML CARP SQ SCH ×2 (05:31→14:23)
[2017-01-31] MEDS: IPRATROPIUM BROMIDE/ALBUTEROL respimat INH INH SCH ×4 (07:48→20:52)
[2017-01-31] MEDS: BENZONATATE 100MG CAP PO SCH ×3 (07:48→20:53)
[2017-01-31] MEDS: AZITHROMYCIN 250 MG TAB PO SCH (07:49)
[2017-01-31] MEDS: GUAIFENESIN 600 MG TABCR PO SCH ×2 (07:50→20:52)
[2017-01-31] MEDS: SENNA 8.6 MG TAB PO SCH (07:50)
[2017-01-31] MEDS: ASPIRIN 325 MG ECTAB PO SCH (07:50)
[2017-01-31] MEDS: BISACODYL 5 MG TABEC PO SCH (07:50)
[2017-01-31] MEDS: GABAPENTIN 300 MG CAP PO SCH ×3 (07:50→20:53)
[2017-01-31] MEDS: TRIAMCINOLONE ACET 0.1% CR 15 GM TUBE EXT SCH ×2 (07:51→20:52)
[2017-01-31 07:55] LABS: BUN/CREATININE RATIO 31.4 (10-20); CREATININE 1.1 mg/dl (0.60-1.40); POTASSIUM 4.8 mmol/L (3.5-5.1)
[2017-01-31 07:57] LABS: CALCIUM 9.1 mg/dl (8.5-10.1)
[2017-01-31] MEDS ORDERED: METHYLPREDNISOLONE IV 40 MG in SYRINGE 0 ML IV SCH (08:00)
[2017-01-31] MEDS: TRAMADOL HCL 50 MG TAB PO SCH ×3 (08:56→20:53)
[2017-01-31] MEDS: INSULIN ASPART 100 UNITS/ML 3 ML PEN SC SCH ×4 (08:56→22:03)
--- NOTE | 2017-01-31 08:56 | OPHTHALMOLOGY CONSULTATION ---
DATE OF CONSULTATION: 01/30/2017 CONSULT REQUESTED BY: Greg Lynn MD. CHIEF COMPLAINT AND HISTORY OF PRESENT ILLNESS: This is a 56-year-old male, who was admitted on 01/27/2017 for chest pain, cough and pulmonary congestion, who has also been experiencing worsening vision in his left eye over the past 2 weeks. He states that he was baling hay when he noticed that he had a hard time distinguishing between the hay eileen. He has baseline poor vision in his right eye from ischemic optic neuropathy that was diagnosed in 2011. Looking through some of his notes from this hospital stay, there was 1 report that the ischemic optic neuropathy was bilateral, however, the patient feels like it has only affected his right eye in the past and his left eye has been his better eye. In addition, over the past several days, he feels like he is having more floaters in his left eye and he also feels like he has a hard time distinguishing between certain colors such as blues and greens. He has no significant eye pain, but does have a mild pressure sensation behind both eyes. He also complains of headache on the left side over the past few weeks as his vision has been changing as well as scalp tenderness on the left, pain with chewing and left hip pain which is chronic for him, but seems worse over the past few weeks. He does have a regular sap payroll consultant, but has not been seen for an eye exam for several years. According to his primary team, he is scheduled for a temporal artery biopsy on Wednesday and has been on high dose IV steroids for possible giant cell arteritis. PAST MEDICAL HISTORY: Positive for coronary artery disease, type 2 diabetes, hypothyroidism, ulcerative colitis, ischemic optic neuropathy. PAST SURGICAL HISTORY: Positive for cardiac stenting x5 and left hip surgery. MEDICATIONS: Include aspirin, gabapentin, Combivent, lisinopril, mesalamine, nitroglycerin, senna and triamcinolone acetonide cream. ALLERGIES: No known drug allergies. FAMILY HISTORY: Positive for heart disease. PHYSICAL EXAMINATION: His visual acuity at near with reading glasses is 20/800 in the right eye and 20/30+2 in the left eye. His intraocular pressures are normal to palpation bilaterally. His pupils are 5 mm. They react down to 3 mm. There is an afferent pupillary defect on the right side. His confrontational visual brooks are unable to be performed right eye secondary to poor vision. His left eye shows a mild nasal and inferonasal deficiency. His anterior segment exam on the right shows the lids, lashes and lacrimal glands were within normal limits. The conjunctiva and sclerae are white and quiet. Cornea is clear. The anterior chamber is deep and formed. The iris is round and reactive and the lens shows 1+ nuclear change. The anterior segment exam on the left shows his lids, lashes and lacrimal glands were within normal limits. The conjunctiva and sclerae are white and quiet. The cornea is clear. The anterior chamber is deep and formed. The iris is round with no defects and lens shows 1+ nuclear change. His dilated fundus exam on the right shows a cup-to-disc ratio of 0.40 with diffuse pallor of the optic nerve. The macula, vessels and peripheral retina, all appear within normal limits. On the left side, the dilated exam shows a cup-to-disc ratio of 0.35. There may be some slight sectoral pallor of the optic nerve superiorly. There is somewhat of a blunted foveal light reflex and 2 focal areas of RPE atrophy in the inferior macula. The vessels and peripheral retina appear within normal limits. LABORATORY DATA: Remarkable for elevated sedimentation rate at 58 and elevated CRP at 2.87. IMAGING: A brain MRA did not show any stenosis, occlusion or aneurysm. An MRI of the brain showed an old right MCA territory infarct and no acute process. ASSESSMENT AND PLAN: This is a 56-year-old male with a 2-week history of vision change/disturbance in the left eye associated with headache, left denominational pain, jaw pain and night sweats. 1. Subjective visual disturbance, left eye. His symptoms are definitely concerning for possible giant cell arteritis and his erythrocyte sedimentation rate is also elevated. His CRP; however, is only mildly elevated and he maintains relatively good visual acuity in the left eye. I do not know his visual baseline acuity in either eye. He is currently receiving high dose methylprednisolone intravenous for possible giant cell arteritis and is scheduled for a temporal artery biopsy on Wednesday. I do agree with this current plan and would recommend continuing long-term steroid if the biopsy returns positive. I also discussed with the patient that he should see his primary sap payroll consultant once he is discharged within the first week so that he can have formal visual field testing and other imaging modalities performed. I explained to him that if he cannot get an appointment with his primary sap payroll consultant, he is welcome to call [facility] at [phone] for an exam. 2. Ischemic optic neuropathy, right eye. This is longstanding and per the patient, he maintains a poor visual baseline and poor visual prognosis for this eye. 3. Cataracts bilaterally. These are very mild and not visually significant at this time. 4. Type 2 diabetes with no retinopathy. Recommend good glycemic control to help prevent onset of retinopathy. BRISA
--- NOTE | 2017-01-31 10:46 | Surgery Progress Note ---
Surgery Progress Note Date of Service Jan 31, 2017. Objective Vital Signs: Date Time Temp Pulse Resp B/P (MAP) Pulse Ox O2 Delivery O2 Flow Rate FiO2 01/31/17 09:18 96 Room Air 01/31/17 07:27 36.4 62 20 124/71 (88) 97 Room Air 01/31/17 04:06 Room Air 01/31/17 04:00 36.5 62 20 142/77 (98) 95 Room Air 01/31/17 00:15 Room Air 01/31/17 00:02 36.6 69 20 128/77 (94) 94 Room Air 01/30/17 20:01 Room Air 01/30/17 19:52 36.5 67 20 114/73 (87) 94 Room Air 01/30/17 18:21 96 Room Air 3.0 01/30/17 16:00 96 Room Air 01/30/17 14:42 36.4 69 18 125/85 (98) 96 Room Air 01/30/17 12:00 97 Room Air 01/30/17 11:28 36.5 62 20 131/79 (96) 95 Room Air Laboratory Results: Results Past 24 Hours Test 01/30/17 11:26 01/30/17 16:44 01/30/17 20:31 01/31/17 06:55 Range/Units Bedside Glucose 155 120 171 70-99 mg/dl Erythrocyte Sedimentation Rate 35 0-14 mm/hr Sodium Level 141 136-145 mmol/L Potassium Level 4.8 3.5-5.1 mmol/L Chloride Level 113 98-107 mmol/L Carbon Dioxide Level 18 21-32 mmol/L Anion Gap 10.0 3-11 mmol/L Blood Urea Nitrogen 35 7-18 mg/dl Creatinine 1.10 0.60-1.40 mg/dl Est Creatinine Clear Calc Drug Dose 91.1 ml/min Estimated GFR () 85.3 Estimated GFR (Non- 73.6 BUN/Creatinine Ratio 31.4 10-20 Random Glucose 150 70-99 mg/dl Calcium Level 9.1 8.5-10.1 mg/dl Test 01/31/17 07:15 Range/Units Bedside Glucose 141 70-99 mg/dl Assessment & Plan 01/31/17- plan for Lt temporal art bx tomorrow
[2017-01-31] MEDS ORDERED: METHYLPREDNISOLONE IV 20 MG in SYRINGE 0 ML IV ONE (16:00)
--- NOTE | 2017-01-31 18:10 | Anesthesiology Progress Note ---
Anesthesia Progress Note Date of Service Jan 31, 2017. Progress Notes Mr. Motta is as 56 year old male who is slated to undergo temporal artery biopsy to r/o giant cell arteritis. NKDA. PMH significant for CAD, CHF (ischemic ), HTN, [place] (2009), GERD IDDM, hypothyroidism, obesity, former smoker, CVA (2011) . PSH significant for hip replacement (sep 2016 ward) and heart cath with a total of 5 stents (last stent 2009). Echo from this admission showed EF 40-45% with mild to moderate global LV dysfunction. Patient is blind in right eye and has had worsening left eye vision recently. Airway exam showed upper dentures with good MP, full eli and thick neck. Discussed GA vs likely MAC for procedure and consent obtained. All questions answered.
--- NOTE | 2017-01-31 21:49 | Progress Note ---
Subjective Date of Service: Jan 31, 2017. Subjective Pt evaluation today including: conversation w/ patient, conversation w/ family (significant other at bedside), physical exam, chart review, lab review, conversation w/ pre owned sales consultant (gen surg) Pain: headache on left, but "easing off" PO Intake: normal Voiding: no voiding problems overall feels better continues with blurry vision - left eye - and some visual disturbance breathing/cough/congestion/sob all improved telemetry normal overnight Problem List Medical Problems: (1) Atopic dermatitis Status: Acute (2) Bronchitis Status: Acute (3) CHF (congestive heart failure) Status: Acute (4) Elevated troponin Status: Acute (5) Fever Status: Acute (6) GI bleed Status: Acute (7) Occluded PICC line Status: Acute (8) Precordial chest pain Status: Acute Review of Systems Constitutional: No fever, No chills Respiratory: No cough, No sputum, No wheezing, No dyspnea at rest, No hemoptysis Cardiac: No chest pain, No orthopnea Abdomen: No pain Objective Vital Signs Date Time Temp Pulse Resp B/P (MAP) Pulse Ox O2 Delivery O2 Flow Rate FiO2 01/31/17 20:38 Room Air 01/31/17 19:55 36.4 62 20 141/89 (106) 98 Room Air 01/31/17 16:00 97 Room Air 01/31/17 14:44 36.4 78 20 142/89 (106) 97 Room Air 01/31/17 12:00 94 Room Air 01/31/17 11:25 36.5 61 20 143/86 (105) 96 Room Air 01/31/17 09:18 96 Room Air 01/31/17 07:27 36.4 62 20 124/71 (88) 97 Room Air 01/31/17 04:06 Room Air 01/31/17 04:00 36.5 62 20 142/77 (98) 95 Room Air 01/31/17 00:15 Room Air 01/31/17 00:02 36.6 69 20 128/77 (94) 94 Room Air Physical Exam General Appearance: no apparent distress, + pertinent finding (looks much better today) ENT: pharynx normal, + pertinent finding (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) Neck: no JVD Respiratory/Chest: lungs clear, no respiratory distress, no accessory muscle use Cardiovascular: regular rate, rhythm, no gallop, no murmur Abdomen: normal bowel sounds, non tender, soft, no organomegaly Extremities: no pedal edema Neurologic/Psychiatric: alert, oriented x 3 Laboratory Results Last 24 Hours Test 01/31/17 06:55 01/31/17 07:15 01/31/17 11:22 01/31/17 16:31 Erythrocyte Sedimentation Rate 35 mm/hr Sodium Level 141 mmol/L Potassium Level 4.8 mmol/L Chloride Level 113 mmol/L Carbon Dioxide Level 18 mmol/L Anion Gap 10.0 mmol/L Blood Urea Nitrogen 35 mg/dl Creatinine 1.10 mg/dl Est Creatinine Clear Calc Drug Dose 91.1 ml/min Estimated GFR () 85.3 Estimated GFR (Non- 73.6 BUN/Creatinine Ratio 31.4 Random Glucose 150 mg/dl Calcium Level 9.1 mg/dl Bedside Glucose 141 mg/dl 118 mg/dl 134 mg/dl Test 01/31/17 21:04 Bedside Glucose 138 mg/dl Assessment and Plan 56yo male with: 1. left sided headaches, temporal artery tenderness - sed rate 58 initially, now in the 30s following several days of steroids. Temporal artery bx to r/o TA scheduled for Wednesday by Dr. Rajput. Continue steroids - wean to 60mg once daily in am. Despite steroids & toradol his headaches have continued. Gave fioricet yesterday w/o relief. Give tramadol 50mg TID today to see if this helps. MRI w/o acute pathology. Spoke with neuro today - they report that the headaches from temporal arteritis - even if on steroids - can take several days to improve. 2. COPD w/ exacerbation - nearly resolved. Stop IV steroids today. Wean to 60mg of prednisone tomorrow. cont bronchodilator day #4 of zithromax (plan 5 days in total). had several days of rocephin but this has been d/c. 3. left eye visual loss - subacute - spoke with [facility] - in 2011 was dx with b/l optic ischemic neuritis. his symptoms persisted and worsened while hospitalized. Dr. Rose performed dilated eye exam - showed no retinal detachment and fairly normal optic disc. vision in the L eye was 20/40, right eye 20/800. echo w/o source of embolus. carotids w/o ICA stenosis. will need f/u with Dr. Rose after discharge await temporal artery bx 4. headache - see above. Tramadol 50mg TID today. 5. h/o chronic systolic CHF - echo repeated - EF 40-45%. compensated. 6. DVT proph - heparin TID. Hold starting tonight in anticipation of temporal artery bx tomorrow. 7. h/o ulcerative colitis - cont mesalamine. 8. T2DM - controlled. 9. h/o hypothyroidism - TSH about 10 days ago was normal without medication. 10. CAD - no ischemic symptoms at this time. Has resulting ischemic cardiomyopathy. following his temporal artery bx he likely can be d/c home tomorrow on prednisone 60mg daily while awaiting his bx results significant other updated overall making good progress Continued [facility] stay due to: inadequate oral pain control, multiple IV medications needed Discharge planning: home
[2017-02-01] VITALS (11 sets, daily range): BP systolic 129–152; BP diastolic 71–99; PULSE 46–68; TEMP 36.4–36.7; O2SAT 94–98
[2017-02-01] MEDS: KETOROLAC TROMETHAMINE 30 MG/ML VIAL IV PRN (04:00)
[2017-02-01] MEDS ORDERED: CEFAZOLIN 2000 MG/60 ML D5W 60 ML IV SCH (06:00)
[2017-02-01 06:32] LABS: BUN/CREATININE RATIO 26.9 (10-20); CALCIUM 8.9 mg/dl (8.5-10.1); CREATININE 1.2 mg/dl (0.60-1.40); POTASSIUM 4.1 mmol/L (3.5-5.1)
[2017-02-01] MEDS ORDERED: PROPOFOL IV EMULSION 10 MG/ML 20 ML VIAL IV ONE (07:48)
[2017-02-01] MEDS ORDERED: LIDOCAINE HCL 2% 2 ML VIAL (20MG/ML) ONE (07:48)
[2017-02-01] MEDS ORDERED: MIDAZOLAM HCL 1 MG/ML 2ML VIAL ONE (07:49)
[2017-02-01] MEDS ORDERED: FENTANYL CITRATE INJ 50 MCG/1 ML 2 ML VIAL ONE (07:49)
--- NOTE | 2017-02-01 07:51 | History & Physical Bridge Note ---
H&P Re-Evaluation Bridge Note: I have examined the patient, reviewed the History & Physical and in the interval since the performance of the History & Physical I have noted the following changes of clinical significance: No changes noted
[2017-02-01] MEDS ORDERED: LIDOCAINE HCL 1% 20 ML VIAL ONE (07:53)
[2017-02-01] MEDS ORDERED: BUPIVACAINE 0.5 % 5 MG/1 ML MPF 30ML VIAL ONE (07:54)
[2017-02-01] MEDS ORDERED: ATROPINE SULFATE 0.1 MG/ML 5ML SYR IV PRN ×2 (08:30→08:45)
[2017-02-01] MEDS ORDERED: FENTANYL CITRATE INJ 50 MCG/1 ML 2 ML VIAL IV PRN ×2 (08:30→08:45)
[2017-02-01] MEDS ORDERED: ONDANSETRON INJ 2 MG/ML 2 ML VIAL IV PRN (08:30)
[2017-02-01] MEDS ORDERED: EpHEDrine SULFATE INJ 50 MG/ML AMP IV PRN ×2 (08:30→08:45)
[2017-02-01] MEDS: TRAMADOL HCL 50 MG TAB PO SCH ×3 (09:00→13:36)
--- NOTE | 2017-02-01 09:03 | [facility] Post Operative Brief Note ---
Immediate Operative Summary Operative Date Feb 01, 2017. Pre-Operative Diagnosis Headache, Visual Disturbance Left Eye Post-Operative Diagnosis Headache, Visual Disturbance Left Eye Procedure(s) Performed Left Temporal Artery Biopsy Surgeon Dr. Rajput Butt Welder Surgeon(s) Willard Curran PA-C Estimated Blood Loss 3cc Findings Lt temp artery Specimens Lt temporal artery Anesthesia local/ sedation Complication(s) None Disposition Recovery Room / PACU
[2017-02-01 09:05] LABS: BASO % 0.1 %; BASO ABS # 0.01 K/uL (0-0.2); COMPLETE YES; HEMATOCRIT 39.4 % (42-52); LYMPH % 11.6 %; LYMPH ABS # 1.12 K/uL (1.2-3.4); MEAN CELL VOLUME 85.5 fL (80-100); MEAN CORPUSCULAR HEMOGLOBIN 28.6 pg (25-34); MEAN CORPUSCULAR HGB CONC 33.5 g/dl (32-36); MEAN PLATELET VOLUME 10.7 fL (7.4-10.4); MONO % 9.6 %; NEUT % 77.7 %; PLATELET COUNT 233 K/uL (130-400); RED BLOOD COUNT 4.61 M/uL (4.7-6.1); WHITE BLOOD COUNT 9.62 K/uL (4.8-10.8)
--- NOTE | 2017-02-01 09:08 | Discharge Instructions ---
Discharge Instructions Date of Service Feb 01, 2017. Admission Reason for Admission: Bronchitis Discharge Discharge Diagnosis / Problem: headache/ visual disturbance Discharge Goals Goal(s): Decrease discomfort, Improve function, Improve disease control Activity Recommendations Activity Limitations: as noted below Lifting Limitations: gradually increase as tolerated Exercise/Sports Limitations: until after follow-up appointment May Resume Sexual Activity: when tolerated Shower/Bathe: tomorrow Driving or Machine Use: resume 1 day after discharge SPECIAL CARE INSTRUCTIONS: * Cover incisions and change daily for comfort/drainage. May leave uncovered with dermabond * May use ibuprofen for pain as tolerated. * Expect some swelling and bruising. Call your doctor if: * Temperature above 101 degrees * Pain not relieved by pain medicine ordered * There is increased drainage or redness from any incision * You have any unanswered questions or concerns [phone]. FOLLOW UP VISIT: If not already scheduled, please call the office for a follow-up visit. for 2 weeks- check up OFFICE PHONE NUMBER: Dr. Rajput Office . Current Hospital Diet Patient's current hospital diet: AHA Diet (Heart Healthy), Diabetes Type 2 Diet Discharge Diet Recommended Diet: AHA Diet (Heart Healthy), Low Sodium Diet (2gm Na) Procedures Procedures Performed: Left Temporal Artery Biopsy Pending Studies Studies pending at discharge: no Laboratory Results Hemoglobin A1c Test 01/28/17 06:52 Range/Units Estimated Average Glucose 134 mg/dl Hemoglobin A1c 6.3 H 4.5-5.6 % Lipid Panel Test 01/27/17 17:32 Range/Units Triglycerides Level 108 0-150 mg/dl Cholesterol Level 203 H 0-200 mg/dl HDL Cholesterol 44 mg/dl Cholesterol/HDL Ratio 4.6 LDL Cholesterol, Calculated 137 mg/dl Medical Emergencies . Who to Call and When: Medical Emergencies: If at any time you feel your situation is an emergency, please call 911 immediately. . Non-Emergent Contact Non-Emergency issues call your: Primary Care Provider, Surgeon . "Provider Documentation" section prepared by Hoang Rajput. . VTE Core Measure Inpt VTE Proph given/why not?: SCD's
[2017-02-01] MEDS ORDERED: HYDR-5688 PO (09:09)
[2017-02-01] MEDS ORDERED: HYDROCODONE/ACETAMOPHEN 5/325MG TAB PO PRN ×2 (09:15)
[2017-02-01] MEDS: TRIAMCINOLONE ACET 0.1% CR 15 GM TUBE EXT SCH (09:50)
[2017-02-01] MEDS: IPRATROPIUM BROMIDE/ALBUTEROL respimat INH INH SCH ×2 (09:50→13:36)
[2017-02-01] MEDS: GUAIFENESIN 600 MG TABCR PO SCH (09:51)
[2017-02-01] MEDS: AZITHROMYCIN 250 MG TAB PO SCH (09:52)
[2017-02-01] MEDS: SENNA 8.6 MG TAB PO SCH (09:53)
[2017-02-01] MEDS: BISACODYL 5 MG TABEC PO SCH (09:54)
[2017-02-01] MEDS: GABAPENTIN 300 MG CAP PO SCH ×2 (09:54→13:36)
[2017-02-01] MEDS: ASPIRIN 325 MG ECTAB PO SCH (09:54)
[2017-02-01] MEDS: BENZONATATE 100MG CAP PO SCH ×2 (09:55→13:36)
[2017-02-01] MEDS: INSULIN ASPART 100 UNITS/ML 3 ML PEN SC SCH ×2 (09:59→12:04)
--- NOTE | 2017-02-01 10:03 | OPERATIVE REPORT ---
DATE OF OPERATION: 02/01/2017 NAME OF OPERATION: Left temporal artery biopsy. PREOPERATIVE DIAGNOSES: Headache and visual disturbance. POSTOPERATIVE DIAGNOSES: Same. STAFF SURGEON: Dr. Rajput. ANESTHESIA: Local with sedation. PROCEDURE IN DETAIL: The patient was brought in the operating room and placed on the operating table in supine position. His left temporal area was prepped and draped in usual fashion. It was marked. Using 1% plain lidocaine, skin and subcutaneous tissue were anesthetized, incision made anterior to the ear and in the temporal area, carrying dissection down through the fascia, identifying the temporal artery. A 1.5 cm segment of the artery was excised and sent for routine pathology. The ends of the artery were oversewn using 5-0 Prolene suture. The fascia was reapproximated using 4-0 chromic catgut suture, then the skin reapproximated using 5-0 Monocryl with Dermabond applied. The patient was transferred to recovery room in stable condition. I attest to the content of the Intraoperative Record and any orders documented therein. Any exception s are noted below.
--- NOTE | 2017-02-01 10:11 | Anesthesiology Progress Note ---
Anesthesia Post Op Note Date & Time Feb 01, 2017 at 10:11 Vital Signs Pain Intensity: 0 Vital Signs Past 12 Hours Date Time Temp Pulse Resp B/P (MAP) Pulse Ox O2 Delivery O2 Flow Rate FiO2 02/01/17 10:06 36.6 60 16 129/88 (102) 97 Room Air 02/01/17 09:39 36.4 52 18 133/85 (101) 96 Room Air 02/01/17 09:27 60 15 02/01/17 09:27 68 15 97 02/01/17 09:26 143/93 02/01/17 09:22 51 12 96 02/01/17 09:22 51 12 02/01/17 09:21 134/88 02/01/17 09:17 36.9 57 16 134/88 (95) 99 Nasal Cannula 2 02/01/17 09:17 52 8 99 02/01/17 09:17 51 8 02/01/17 09:16 117/89 02/01/17 09:12 54 6 02/01/17 09:12 55 6 99 02/01/17 09:11 108/87 02/01/17 09:10 55 16 02/01/17 09:10 62 16 98 02/01/17 09:06 103/83 02/01/17 09:05 56 8 97 02/01/17 09:05 55 8 02/01/17 09:01 109/70 02/01/17 09:00 36.0 57 16 109/70 95 Nasal Cannula 10 02/01/17 07:45 36.5 46 16 131/71 (91) 98 Room Air 02/01/17 07:06 36.4 61 18 152/97 (115) 96 02/01/17 07:00 Room Air 02/01/17 00:01 36.5 63 20 133/89 (104) 96 Room Air 01/31/17 23:53 Room Air Notes Mental Status: alert / awake / arousable, participated in evaluation Pt Amnestic to Procedure: Yes Nausea / Vomiting: adequately controlled Pain: adequately controlled Airway Patency, RR, SpO2: stable & adequate BP & HR: stable & adequate Hydration State: stable & adequate Anesthetic Complications: no major complications apparent
[2017-02-01] MEDS ORDERED: PRED20TA PO (12:45)
--- NOTE | 2017-02-01 12:54 | Discharge Instructions ---
Discharge Instructions Date of Service Feb 01, 2017. Admission Reason for Admission: Bronchitis Discharge Discharge Diagnosis / Problem: Potential temporal arteritis Discharge Goals Goal(s): Decrease discomfort, Diagnostic testing Activity Recommendations Activity Limitations: resume your previous activity Driving or Machine Use: refrain from driving while using narcotics . Instructions / Follow-Up Instructions / Follow-Up You were admitted to the hospital for a change in vision and worsening cough/ COPD exacerbation. 1. Change in vision could be secondary to something we call temporal arteritis. The results of the biopsy will be resulted in the next 7-10 days but potentially sooner. This diagnosis is primarily treated with steroids. A) please continue the dose of 60 mg for the steroids until you follow up with your primary doctor. They will arrange the taper B) Please remember to check sugars throughout the day and bring them with you to the follow up appointment as they can cause changes in your sugar levels C) Follow up Dr Rose for vision changes 2. COPD exacerbation/ bronchitis - While you were in the hospital you received the antibiotic Azithromycin - you received your last dose today - The steroids will also help with the lung congestion Current Hospital Diet Patient's current hospital diet: AHA Diet (Heart Healthy), Diabetes Type 2 Diet Discharge Diet Recommended Diet: Diabetes Type 2 Diet Procedures Procedures Performed: Left Temporal Artery Biopsy Pending Studies Studies pending at discharge: yes List of pending studies: Temporal artery biopsy Laboratory Results Hemoglobin A1c Test 01/28/17 06:52 Range/Units Estimated Average Glucose 134 mg/dl Hemoglobin A1c 6.3 H 4.5-5.6 % Lipid Panel Test 01/27/17 17:32 Range/Units Triglycerides Level 108 0-150 mg/dl Cholesterol Level 203 H 0-200 mg/dl HDL Cholesterol 44 mg/dl Cholesterol/HDL Ratio 4.6 LDL Cholesterol, Calculated 137 mg/dl Medical Emergencies . Who to Call and When: Medical Emergencies: If at any time you feel your situation is an emergency, please call 911 immediately. . Non-Emergent Contact Non-Emergency issues call your: Primary Care Provider . . "Provider Documentation" section prepared by Madonna Arambula. . VTE Core Measure Inpt VTE Proph given/why not?: SCD's
--- NOTE | 2017-02-01 13:06 | Discharge Summary ---
Discharge Summary Date of Service Feb 01, 2017. (Madonna Arambula MD) Discharge Summary Admission Date: Jan 27, 2017 at 17:15 Discharge Disposition: Home Principal Diagnosis: COPD exacerbation/ headache Immunizations: Have You Had Influenza Vaccine: Unknown History of Tetanus Vaccine?: Unknown Tetanus Immunization Date: Apr 09, 2007 History of Pneumococcal: Unknown History of Hepatitis B Vaccine: Unknown Procedures: Temporal artery biopsy Consultations: Dr Rajput - surgery (Madonna Arambula MD) Medication Reconciliation New Medications: Hydrocodone/Acetaminophen 5MG/325MG ([place] 5MG/325MG) Tab 1-2 TABLET PO q 6 hrs PRN for Pain, #20 TAB PRN PAIN Prednisone (Prednisone) 20 Mg Tab 3 TAB PO DAILY for 7 Days, #21 TAB FOR 4 DAYS Continued Medications: Aspirin (Aspirin Ec) 325 Mg Tab 325 MG PO BID Bisacodyl (Dulcolax) 5 Mg Tab 5 MG PO DAILY Gabapentin (Neurontin) 300 Mg Cap 300 MG PO TID, CAP Ipratropium-Albuterol (Combivent Respimat) 1 Aer Aer 1 PUFFS INH QID, #1 INHALER 3 Refills Lisinopril (Prinivil) 5 Mg Tab 2.5 MG PO QAM, TAB Mesalamine (Asacol Hd) 800 Mg Tab 800 MG PO TID Nitroglycerin (Nitrostat) 0.4 Mg Tab 1 TAB SL UD, TAB Senna (Senokot) 8.6 Mg Tab 8.6 MG PO DAILY Triamcinolone Acet (Aristocort 0.1%) 240 Appln/80 Gm Cr 1 APPLN TOP BID, #1 TUBE apply from the neck down Discharge Exam Patient states that he is feeling well after the biopsy. States he has a very mild headache over the left temporal region. He denies any chest pain or SOB. We did discuss in detail the side effects of prednisone and patient reflected understanding. He is agreeable to d/c and instructions were received by both him and the girlfriend Review of Systems: Constitutional: No fever Eyes: + problem reported (ongoing change in vision of left eye), No worsening of vision ENT: No hearing loss Respiratory: No cough, No sputum, No wheezing, No shortness of breath, No dyspnea on exertion, No dyspnea at rest Cardiovascular: No chest pain Abdomen: No pain, No nausea, No vomiting, No diarrhea, No constipation Musculoskeletal: No joint pain, No muscle pain Genitourinary - Male: No hematuria Neurologic: No weakness, No numbness/tingling, No balance problems Endocrine: No fatigue Integumentary: No rash Physical Exam: General Appearance: no apparent distress Eyes: normal inspection, + pertinent finding (poor vision bilat ) ENT: normal ENT inspection, + pertinent finding (wound is clean dry and intact on the left temporal region) Neck: supple Respiratory/Chest: lungs clear, normal breath sounds, no respiratory distress, no accessory muscle use Cardiovascular: regular rate, rhythm, no murmur Abdomen / GI: normal bowel sounds, non tender, soft Neurologic/Psychiatric: alert, normal mood/affect, oriented x 3 Skin: normal color, warm/dry, no rash, + pertinent finding (wound as noted above) Lymphatic: no adenopathy (Madonna Arambula MD) Review of Systems: Constitutional: No fever Respiratory: No shortness of breath Cardiovascular: No chest pain Abdomen: No pain Physical Exam: General Appearance: no apparent distress Respiratory/Chest: lungs clear, no respiratory distress Cardiovascular: regular rate, rhythm Abdomen / GI: normal bowel sounds, non tender, soft Neurologic/Psychiatric: alert, oriented x 3 Skin: warm/dry (Yolanda Tarango M.D.) Hospital Course This is a 56 yo m that originally came to the hospital after worsening cough and chest congestion from working outside. When arriving he was found to have a significant worsening of his left eye vision as well as left temporal headaches. 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 He was promptly started on steroids and a temporal artery biopsy was completed prior to d/c. Patient had minimal headache on d/c however ongoing left eye blurriness and a follow up with Dr Rose and his PCP was arranged. left sided headaches, temporal artery tenderness - ESR has improved with the initiation of steroids - Temporal artery biopsy, results pending, completed by Dr Rajput - transitioned to oral steroids on d/c- rx for 60 mg daily given x 7 days - ongoing taper to be arranged by PCP - MRI w/o acute pathology. - he is to bring in blood sugars to PCP to help monitor potential changes in BSG while on high dose prednisone COPD w/ exacerbation - Received 5 days of azithromycin will in house - had several days of rocephin but this has been d/c. left eye visual loss - subacute - follow up with Dr Rose - echo w/o source of embolus. - carotids w/o ICA stenosis. h/o chronic systolic CHF * 1. Moderately dilated LV. Borderline concentric LVH. * 2. Mild to moderate global LV dysfunction. LVEF 40-45%. 3. Normal RV size and function. * 4. No significant valvular abnormalities. * 5. Negative bubble study for interatrial shunt. * 6. Compared with prior study on 07/06/2015: LV function has improved. DVT proph - heparin TID Total Time Spent: Less than 30 minutes This includes examination of the patient, discharge planning, medication reconciliation, and communication with other providers. (Madonna Arambula MD) I have reviewed the medical record and performed a history and physical examination of this patient today. I have discussed the case with Dr. Arambula. The above note reflects my findings, conclusions, and recommendations. Total Time Spent: Greater than 30 minutes (35) (Yolanda Tarango M.D.) Discharge Instructions Please refer to the electronic Patient Visit Report (Discharge Instructions) for additional information. (Madonna Arambula MD) Additional Copies To Oneal Brown M.D.
== END 2017-02-01 14:20 | disposition home or self-care (01) | DRG 41 ==
LOC: EDBD 13:01 → C.EDB 13:02 → C.MED 17:15 → ENRESERV 17:51
PROVIDERS: ADMIT Internal Medicine; ATTEND Family Medicine
PROC: 03BT0ZX Excision of Left Temporal Artery, Open Approach, Diagnostic (ICD-10-PCS; principal; 2017-02-01 08:00)
DX: R51 Headache (principal); J44.1 Chronic obstructive pulmonary disease with (acute) exacerbation; H47.011 Ischemic optic neuropathy, right eye; I25.10 Atherosclerotic heart disease of native coronary artery without angina pectoris; E11.9 Type 2 diabetes mellitus without complications; K21.9 Gastro-esophageal reflux disease without esophagitis; I51.9 Heart disease, unspecified; E78.5 Hyperlipidemia, unspecified; E03.9 Hypothyroidism, unspecified; J40 Bronchitis, not specified as acute or chronic; F10.10 Alcohol abuse, uncomplicated; H54.41 Blindness, right eye, normal vision left eye; E66.9 Obesity, unspecified; H26.9 Unspecified cataract; Z86.19 Personal history of other infectious and parasitic diseases; Z79.82 Long term (current) use of aspirin; Z95.5 Presence of coronary angioplasty implant and graft; Z87.891 Personal history of nicotine dependence; Z95.1 Presence of aortocoronary bypass graft; I25.2 Old myocardial infarction; Z82.49 Family history of ischemic heart disease and other diseases of the circulatory system

== ENCOUNTER → 2017-04-19 | Outpatient (CLI) | payer OTHER ==
[~2017-04-19] MED LIST changes: +BISA-16 PO; -CARV6.252 PO; +HYDR-5688 PO; -HYDR2.5O TOP; +MESA800T5 PO; -PRED20TA2 PO; +SENN-61 PO; -SIMV40TA4 PO
[2017-04-19 14:11] LABS: TOTAL IRON BINDING CAPACITY 338 mcg/dl (250-450)
[2017-04-19 15:25] LABS: LYME DISEASE AB IGG NEG (NEG); LYME DISEASE AB IGM NEG (NEG)
== END | disposition home or self-care (01) ==
LOC: C.LABBC 11:11
PROVIDERS: ATTEND Psychiatry & Neurology Neurology
DX: D64.9 Anemia, unspecified (principal); R51 Headache

== ENCOUNTER → 2017-08-23 | Outpatient (CLI) | payer OTHER ==
[~2017-08-23] MED LIST changes: -HYDR-5688 PO; +OPTIRAY 320 IV PRN
--- NOTE | 2017-08-23 16:03 | DIAGNOSTIC IMAGING REPORT ---
ABDOMEN AND PELVIS CT WITH IV AND ORAL CONTRAST CT DOSE: 1506.15 mGy.cm HISTORY: K92.1 Hematochezia TECHNIQUE: Multiaxial CT images of the abdomen and pelvis were performed following the use of intravenous and oral contrast. A dose lowering technique was utilized adhering to the principles of ALARA. COMPARISON STUDY: Abdomen and pelvis CT 07/05/2015. FINDINGS: A few small scarlike densities within the bilateral lower lobes. No pneumoperitoneum. No pneumatosis. Bilateral total hip arthroplasties. No suspicious lytic or blastic osseous lesions. Best seen on image 213 within the mid aspect of the third portion of the duodenum there is focal mild enlargement. This appears to be secondary to a small short segment of intussusception. However, there is no evidence for bowel obstruction. The remaining loops of large and small bowel are within normal limits. There are few colonic diverticula. Normal appendix. No retroperitoneal or mesenteric lymphadenopathy. The pelvic structures are not well visualized due to the bilateral total hip arthroplasties. However, the bladder is likely unremarkable. Tiny fat-containing right inguinal hernia. The liver, gallbladder, pancreas, spleen, and adrenal glands are unremarkable. Mild bilateral cortical renal scarring. There are a few punctate stones within the right kidney. No hydronephrosis. The ureters are normal in course and caliber. IMPRESSION: 1. Within the third portion of the duodenum there is focal mild enlargement which appears to be secondary to a small short segment of intussusception. However, there is no evidence for bowel obstruction. Endoscopy is recommended to exclude the possibility of an underlying mass as the lead point for intussusception. 2. Right-sided nephrolithiasis. No hydronephrosis. 3. Additional findings as described above. Electronically signed by: Dylon Michael M.D. 08/23/2017 4:02 PM Dictated Date/Time: 08/23/2017 3:53 PM
== END | disposition home or self-care (01) ==
LOC: C.CTS 15:25
PROVIDERS: ATTEND Internal Medicine
DX: K92.1 Melena (principal)

== ENCOUNTER → 2017-09-06 | Day surgery (SDC) | payer OTHER ==
[2017-09-01 08:35] VITALS: Ht 175.3 cm; Wt 109.1 kg
[~2017-09-06] VITALS: Ht 175.3 cm; Wt 109.1 kg
[~2017-09-06] MED LIST changes: -BISA-16 PO; +CITA20TA4 PO; +DOXY100C76 PO; -IPRA1AER2 INH; +LIDOCAINE HCL 2% 2 ML VIAL (20MG/ML) ONE; -LISI5TAB PO; +MESA1TAB4 PO; -MESA800T5 PO; +MIDAZOLAM HCL 1 MG/ML 2ML VIAL ONE; -NTRGSL/4 SL; +NTRGSL/4 UT; +ONDANSETRON INJ 2 MG/ML 2 ML VIAL ONE; -OPTIRAY 320 IV PRN; +PROPOFOL IV EMULSION 10 MG/ML 20 ML VIAL IV ONE; -SENN-61 PO; +SODIUM CHLORIDE 0.9% 500ML 500 ML IV ONE; -TRMCR180 TOP; +VNTHFA/IN INH
--- NOTE | 2017-09-06 11:01 | Endo History and Physical ---
History & Physical Date of Service: Sep 06, 2017. Chief Complaint: abnormal CT scan,intusseption small intestine Referring Physician: Dr. Oneal Brown History of Present Illness 57 yo CM who presents for EGD secondary to abnormal CT scan of the Small Intestine. Past Medical History Angioplasty/Stent, Arthritis, Gastrointestinal Disorder, High Cholesterol, Heart Disease, Hypertension, [place] Past Surgical History Hx Cardiac Surgery: Yes (HEART CATH X 2 (5 TOTAL STENTS PLACED)) Hx Internal Defibrillator: No Hx Pacemaker: No Hx Abdominal Surgery: No Hx of Implantable Prosthesis: No Hx Post-Op Nausea and Vomiting: No Hx Cancer Surgery: No Hx Thoracic Surgery: No Hx Orthopedic: Yes (RT/LEFT PACO, LEFT HIP REVISION X 2 (SPACER PLACED/INFECTION )) Hx Urinary Tract Surgery: No Social History Smoking Status: Former Smoker Hx Substance Use: No Hx Alcohol Use: Yes (OCCASIONALLY) Allergies Coded Allergies: No Known Allergies (Verified , 09/01/17) Current Medications Reported Home Medications Medications Dose Route/Sig Max Daily Dose Days Date Category Ventolin Hfa (Albuterol) 200 Puffs/71407 Mcg Aers 2-4 Puffs INH Q6H PRN 09/01/17 Reported Citalopram Hydrobromide 20 Mg Tab 1 Tab PO QAM 09/01/17 Reported Nitrostat (Nitroglycerin) 0.4 Mg Tab 0.4 Mg UT PRN 09/01/17 Reported Asacol Hd (Mesalamine) 800 Mg Tab 1 Tab PO TID 09/01/17 Reported Neurontin (Gabapentin) 300 Mg Cap 300 Mg PO TID 09/01/17 Reported Aspirin Ec (Aspirin) 325 Mg Tab 325 Mg PO QAM 09/01/17 Reported Monodox (Doxycycline Monohydrate) 100 Mg Cap 100 Mg PO BID 09/01/17 Reported Vital Signs Weight (Kilograms): 109.09 Height (Feet): 5 Height (Inches): 9 Date Time Temp Pulse Resp B/P (MAP) Pulse Ox O2 Delivery O2 Flow Rate FiO2 09/06/17 10:38 36.5 64 20 140/95 (110) 95 Room Air Physical Exam General Appearance: WD/WN, no apparent distress Respiratory/Chest: Auscultation: breath sounds normal Cardiovascular: Heart Auscultation: RRR Abdomen: Bowel Sounds: normal Inspection & Palpation: soft, non-distended, no tenderness, guarding & rebound Assessment and Plan Assessment: 57 yo CM who presents for EGD secondary to abnormal CT scan of the Small Intestine. Plan: Proceed with EGD.
--- NOTE | 2017-09-06 11:52 | Anesthesiology Progress Note ---
Anesthesia Post Op Note Date & Time Sep 06, 2017 at 11:51 Vital Signs Pain Intensity: 0 Vital Signs Past 12 Hours Date Time Temp Pulse Resp B/P (MAP) Pulse Ox O2 Delivery O2 Flow Rate FiO2 09/06/17 10:38 36.5 64 20 140/95 (110) 95 Room Air Notes Mental Status: alert / awake / arousable, participated in evaluation Pt Amnestic to Procedure: Yes Nausea / Vomiting: adequately controlled Pain: adequately controlled Airway Patency, RR, SpO2: stable & adequate BP & HR: stable & adequate Hydration State: stable & adequate Anesthetic Complications: no major complications apparent
--- NOTE | 2017-09-06 12:17 | Discharge Instructions ---
Endoscopy Patient Instructions Date / Procedure(s) Performed Sep 06, 2017. EGD Allergy Information Coded Allergies: No Known Allergies (Verified , 09/01/17) Discharge Date / Findings Sep 06, 2017. Normal EGD Medication Instructions Stopped Medication(s): took ASA yesterday OK to resume all medications today as prescribed Reported Home Medications Medications Dose Route/Sig Max Daily Dose Days Date Category Ventolin Hfa (Albuterol) 200 Puffs/53119 Mcg Aers 2-4 Puffs INH Q6H PRN 09/01/17 Reported Citalopram Hydrobromide 20 Mg Tab 1 Tab PO QAM 09/01/17 Reported Nitrostat (Nitroglycerin) 0.4 Mg Tab 0.4 Mg UT PRN 09/01/17 Reported Asacol Hd (Mesalamine) 800 Mg Tab 1 Tab PO TID 09/01/17 Reported Neurontin (Gabapentin) 300 Mg Cap 300 Mg PO TID 09/01/17 Reported Aspirin Ec (Aspirin) 325 Mg Tab 325 Mg PO QAM 09/01/17 Reported Monodox (Doxycycline Monohydrate) 100 Mg Cap 100 Mg PO BID 09/01/17 Reported Provider Instructions Activity Restrictions - No exercising or heavy lifting for 24 hours. - Do not drink alcohol the day of the procedure. - Do not drive a car or operate machinery until the day after the procedure. - Do not make any important decisions or sign important papers in 24 hours after the procedure. Following Day: - Return to full activity which may include returning to work/school. Diet Start your diet with liquids and light foods (jello, soup, juice, toast). Then eat your usual diet if not nauseated. Treatment For Common After Affects For mild abdominal pain, bloating, or excessive gas: - Rest - Eat lightly - Lie on right side Follow-Up Information Follow-up with Dr. Oneal Brown as scheduled Anesthesia Information What You Should Know You have had a procedure that required some medicine to reduce anxiety and discomfort. This treatment is called moderate sedation. After receiving the treatment, you may be sleepy, but you will be able to breathe on your own. The effects of the treatment may last for several hours. Follow these instructions along with Activity/Diet recommendations noted above: * Do NOT do anything where dizziness or clumsiness would be dangerous. * Rest quietly at home today, then you can be up and about tomorrow. * Have a responsible person stay with you the rest of today. * You may have had an I.V. today. If so, you may take the dressing off later today. Recommendations Call your doctor if: * Trouble breathing * Continuous vomiting for more than 24 hours * Temperature above 101 degrees * Severe abdominal pain or bloating * Pain not relieved by pain medicine ordered * There is increased drainage or redness from any incision * A large amount of rectal bleeding greater than 2-3 tablespoons. (If you had a polyp/s removed or have hemorrhoids, a small amount of blood - from the rectum is to be expected.) * You have any unanswered questions or concerns. IN THE EVENT OF A SERIOUS EMERGENCY, GO TO THE NEAREST EMERGENCY ROOM Your discharge instructions were prepared by provider Tommy Mixon. Patient Instructions Signature Page Kerwin Motta Patient (or Guardian) Signature/Date: I have read and understand the instructions given to me by my caregivers. Caregiver/RN/Doctor Signature/Date: The above-named patient and/or guardian has received patient instructions on this date. + Original Patient Signature Page (only) stays with chart. Please make copy for patient.
--- NOTE | 2017-09-06 12:19 | GI REPORT ---
Procedure Date: 09/06/2017 11:14 AM Procedure: Upper GI endoscopy Indications: Abnormal CT of the GI tract Medicines: Monitored Anesthesia Care Complications: No immediate complications. Estimated Blood Loss: Estimated blood loss: none. Procedure: Pre-Anesthesia Assessment: - Prior to the procedure, a History and Physical was performed, and patient medications and allergies were reviewed. The patient's tolerance of previous anesthesia was also reviewed. The risks and benefits of the procedure and the sedation options and risks were discussed with the patient. All questions were answered, and informed consent was obtained. Prior Anticoagulants: The patient has taken aspirin, last dose was 1 day prior to procedure. ASA Grade Assessment: III - A patient with severe systemic disease. After reviewing the risks and benefits, the patient was deemed in satisfactory condition to undergo the procedure. After obtaining informed consent, the endoscope was passed under direct vision. Throughout the procedure, the patient's blood pressure, pulse, and oxygen saturations were monitored continuously. The scope was introduced through the mouth, and advanced to the third part of duodenum. The upper GI endoscopy was accomplished without difficulty. The patient tolerated the procedure well. Findings: The esophagus was normal. The stomach was normal. The examined duodenum was normal. Impression: - Normal esophagus. - Normal stomach. - Normal examined duodenum. - No specimens collected. Recommendation: - Resume previous diet. - Continue present medications. - Return to primary care physician as previously scheduled. Tommy Mixon, DO 09/06/2017 12:18:54 PM This report has been signed electronically. Note Initiated On: 09/06/2017 11:14 AM I attest to the content of the Intraoperative Record and orders documented therein, exceptions below
[2017-09-06 12:41] VITALS: BP 118/82; PULSE 69; O2SAT 98
== END | disposition home or self-care (01) ==
LOC: C.GI 10:13
PROVIDERS: ATTEND Internal Medicine
DX: R93.3 Abnormal findings on diagnostic imaging of other parts of digestive tract (principal); I25.2 Old myocardial infarction; I10 Essential (primary) hypertension; F32.9 Major depressive disorder, single episode, unspecified; I25.10 Atherosclerotic heart disease of native coronary artery without angina pectoris; Z96.643 Presence of artificial hip joint, bilateral; Z86.73 Personal history of transient ischemic attack (TIA), and cerebral infarction without residual deficits; Z98.890 Other specified postprocedural states; E66.9 Obesity, unspecified; Z68.35 Body mass index [BMI] 35.0-35.9, adult

== ENCOUNTER → 2017-12-24 | Outpatient (CLI) | payer OTHER ==
[~2017-12-24] MED LIST changes: -LIDOCAINE HCL 2% 2 ML VIAL (20MG/ML) ONE; -MIDAZOLAM HCL 1 MG/ML 2ML VIAL ONE; -ONDANSETRON INJ 2 MG/ML 2 ML VIAL ONE; -PROPOFOL IV EMULSION 10 MG/ML 20 ML VIAL IV ONE; -SODIUM CHLORIDE 0.9% 500ML 500 ML IV ONE
[2017-12-24 16:48] LABS: BASO % 0.8 %; BASO ABS # 0.06 K/uL (0-0.2); EOS % 1.8 %; EOS ABS # 0.13 K/uL (0-0.5); HEMATOCRIT 41.9 % (42-52); HEMOGLOBIN 13.9 g/dL (14.0-18.0); IG# 0.01 K/uL (0.00-0.02); LYMPH % 23.9 %; LYMPH ABS # 1.69 K/uL (1.2-3.4); MEAN CELL VOLUME 86.7 fL (80-100); MEAN CORPUSCULAR HEMOGLOBIN 28.8 pg (25-34); MEAN CORPUSCULAR HGB CONC 33.2 g/dl (32-36); MEAN PLATELET VOLUME 10.5 fL (7.4-10.4); MONO ABS # 0.78 K/uL (0.11-0.59); NEUT % 62.4 %; NEUT ABS # 4.39 K/uL (1.4-6.5); PLATELET COUNT 267 K/uL (130-400); RED CELL DISTRIBUTION WIDTH SD 48.1 fL (36.4-46.3); WHITE BLOOD COUNT 7.06 K/uL (4.8-10.8)
[2017-12-24 16:54] LABS: HEMOGLOBIN A1C 6.1 % (4.5-5.6)
[2017-12-24 17:14] LABS: ALBUMIN 3.7 gm/dl (3.4-5.0); ALKALINE PHOSPHATASE 212 U/L (45-117); ALT/SGPT 30 U/L (12-78); AST/SGOT 19 U/L (15-37); BLOOD UREA NITROGEN 22 mg/dl (7-18); CALCIUM 8.8 mg/dl (8.5-10.1); CARBON DIOXIDE 27 mmol/L (21-32); CHOLESTEROL 218 mg/dl (0-200); CREATININE 1.32 mg/dl (0.60-1.40); GLUCOSE 94 mg/dl (70-99); LDL CHOLESTEROL CALCULATED 145 mg/dl; POTASSIUM 4.7 mmol/L (3.5-5.1); SODIUM 138 mmol/L (136-145); TOTAL PROTEIN 8.1 gm/dl (6.4-8.2)
== END | disposition home or self-care (01) ==
LOC: C.LABBFT 15:01
PROVIDERS: ATTEND Internal Medicine
DX: R73.01 Impaired fasting glucose (principal); I25.5 Ischemic cardiomyopathy

== ENCOUNTER 2021-06-16 16:42 | Inpatient (IN) ==
[2021-06-16] MEDS ORDERED: ASPIRIN 81 MG CHEW PO STA (17:01)
[2021-06-16] MEDS ORDERED: NITROGLYCERIN SL 0.4 MG/TAB TAB SL PRN ×2 (17:01→22:13)
[2021-06-16] MEDS ORDERED: NITROGLYCERIN SL 0.4 MG/TAB TAB SL STA (17:01)
--- NOTE | 2021-06-16 17:07 | Emergency Department Note ---
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 (Metoprolol Tartrate 25 Mg Tab) 25 mg PO BID [facility] Stop: 07/16/21 22:12 Last Admin: 06/16/21 23:01 Dose: 25 mg Documented by: [id number] Pravastatin Sodium (Pravastatin Sod 20 Mg Tab) 20 mg PO HS [facility] Stop: 07/16/21 22:12 Last Admin: 06/16/21 23:01 Dose: 20 mg Documented by: [id number] Discontinued Medications Aspirin (Aspirin 81 Mg Chew) 324 mg PO NOW STA Stop: 06/16/21 17:02 Last Admin: 06/16/21 17:07 Dose: 324 mg Documented by: [id number] Fentanyl Citrate (Fentanyl Citrate 100 Mcg/2 Ml Vial) 75 mcg IV NOW STA Stop: 06/16/21 17:25 Last Admin: 06/16/21 18:15 Dose: 75 mcg Documented by: [id number] Heparin Sodium (Porcine) (Heparin Sod (Porcine) 1000 Unit/Ml) 4,000 units IV NOW ONE Stop: 06/16/21 19:40 Last Admin: 06/16/21 19:47 Dose: 4,000 units Documented by: [id number] Cosigned by: [id number] Heparin Sodium/Dextrose (Heparin Iv Adult Wt-Based Low-Dose With Bolus Protocol) 1 ea IV NOW STA; Protocol Stop: 06/16/21 19:25 Last Admin: 06/16/21 19:58 Dose: 1 ea Documented by: [id number] Sodium Chloride (Nss 1000ml) 500 mls @ 999 mls/hr IV .Q31M ONE Stop: 06/16/21 19:05 Last Admin: 06/16/21 18:58 Dose: Not Given Documented by: [id number] Nitroglycerin (Nitroglycerin Sl 0.4 Mg/Tab Tab) 0.4 mg SL NOW STA Stop: 06/16/21 17:02 Last Admin: 06/16/21 17:07 Dose: 0.4 mg Documented by: [id number] Nitroglycerin (Nitroglycerin 2% Ointment 30gm Tube) 1 inch EXT ONE STA Stop: 06/16/21 19:25 Last Admin: 06/16/21 19:45 Dose: 1 inch Documented by: [id number] Imaging Data Radiologist's Impression: Chest X-Ray 06/16/21 16:50 XR chest 1V portable CLINICAL HISTORY: Atypical chest pain TECHNIQUE: Single frontal radiograph of the chest was obtained. Comparison: Comparison is made to left rib series 11/22/2018 FINDINGS: No lines and tubes are seen. The cardiomediastinal silhouette is normal. There is prominence and cephalization of the vasculature with Home B lines seen. No evidence of pleural effusion or pneumothorax. IMPRESSION: Likely moderate pulmonary edema without acute other abnormality. ACT 112: Negative or not required by law. Electronically signed by: Gunner Swift M.D. 06/16/2021 5:23 PM Discharge Plan Visit Data Chief Complaint: Chest Pain Stated Complaint: CHEST PAIN, JAW PAIN TOOK NITRO NOT HELPING ED Provider: Luke Adkins Discharge Problem: NSTEMI (non-ST elevated myocardial infarction) Patient Disposition: Admitted As Inpatient Discharge Instructions Interventions: ED Discharge Assessment Last Done: 06/16/21 22:24
[2021-06-16] MEDS ORDERED: fentaNYL citrate 100 MCG/2 ML VIAL IV STA (17:24)
--- NOTE | 2021-06-16 17:25 | XRay Report ---
XR chest 1V portable CLINICAL HISTORY: Atypical chest pain TECHNIQUE: Single frontal radiograph of the chest was obtained. Comparison: Comparison is made to left rib series 11/22/2018 FINDINGS: No lines and tubes are seen. The cardiomediastinal silhouette is normal. There is prominence and ceph alization of the vasculature with Home B lines seen. No evidence of pleural effusion or pneumothora x. IMPRESSION: Likely moderate pulmonary edema without acute other abnormality. ACT 112: Negative or not required by law. Electronically signed by: Gunner Swift M.D. 06/16/2021 5:23 PM
[2021-06-16 17:39] LABS: Alanine Aminotransferase 38 U/L (12-78); Albumin Globulin Ratio 0.8 (0.9-2); Albumin Level 3.9 gm/dl (3.4-5.0); Alkaline Phosphatase 164 U/L (45-117); BUN Creatinine Ratio 13.1 (10-20); Bilirubin,Total 0.5 mg/dl (0.2-1); Blood Urea Nitrogen 27 mg/dl (7-18); Calcium 9.5 mg/dl (8.5-10.1); Carbon Dioxide 20 mmol/L (21-32); Chloride 109 mmol/L (98-107); Creatinine Clr Calc Pharmacy 43.9 ml/min; Est GFR (African American) 38.4 ml/min; Est GFR (Non-African American) 33.1 ml/min; Glucose 104 mg/dl (70-99); Lipase 219 U/L (73-393); Sodium 136 mmol/L (136-145); Total Protein 8.9 gm/dl (6.4-8.2); Troponin I < 0.015 ng/ml (0-0.045)
[2021-06-16 17:54] LABS: Basophils # (auto) 0.04 K/uL (0-0.2); Basophils % (auto) 0.3 %; Eosinophils # (auto) 0.02 K/uL (0-0.5); Eosinophils % (auto) 0.1 %; Hematocrit (blood only) 44.5 % (42-52); Hemoglobin 14.6 g/dL (14.0-18.0); Immature Granulocytes # (auto) 0.04 K/uL (0.00-0.02); Immature Granulocytes % (auto) 0.3 %; Lymphocytes # (auto) 1.35 K/uL (1.2-3.4); Mean Corpuscular Hgb Conc 32.8 g/dL (32-36); Mean Corpuscular Volume 91.4 fL (80-100); Mean Platelet Volume 10.2 fL (7.4-10.4); Monocytes # (auto) 0.76 K/uL (0.11-0.59); Neutrophils # (auto) 12.85 K/uL (1.4-6.5); Neutrophils % (auto) 85.3 %; Platelet Count 239 K/uL (130-400); RDW Coefficient of Variation 14.7 % (11.5-14.5); RDW Standard Deviation 49.4 fL (36.4-46.3); Red Blood Count 4.87 M/uL (4.7-6.1); White Blood Count 15.06 K/uL (4.8-10.8)
[2021-06-16 18:10] LABS: Partial Thromboplastin Time 26.1 Seconds (21.0-31.0); Prothrombin Time 10.3 Seconds (9.0-12.0)
[2021-06-16 18:13] LABS: Potassium 4.1 mmol/L (3.5-5.1)
[2021-06-16 18:18] LABS: Magnesium 2.1 mg/dl (1.8-2.4)
[2021-06-16] MEDS ORDERED: SODIUM CHLORIDE 0.9% 1000ML 500 ML IV ONE (18:35)
[2021-06-16] MEDS ORDERED: NITROGLYCERIN 2% OINTMENT 30GM TUBE EXT STA (19:24)
[2021-06-16] MEDS ORDERED: Heparin IV Adult Wt-Based Low-Dose WITH Bolus Protocol IV STA (19:24)
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
[2021-06-16] MEDS ORDERED: HEPARIN SOD (PORCINE) 1000 UNIT/ML IV ONE (19:39)
[2021-06-16] MEDS ORDERED: HEPARIN SODIUM/DEXTROSE 25,000 UNITS/500 ML BAG IV SCH (19:45)
[2021-06-16] MEDS ORDERED: STAT IV Infusion **Titration per Protocol STA (20:53)
[2021-06-16] MEDS ORDERED: NITROGLYCERIN/D5W 100MCG/ML 250 ML IV SCH (21:00)
[2021-06-16] MEDS ORDERED: PRAVASTATIN SOD 20 MG TAB PO SCH (22:13)
[2021-06-16] MEDS ORDERED: ONDANSETRON INJ 2 MG/ML 2 ML VIAL IV PRN (22:13)
[2021-06-16] MEDS ORDERED: ACETAMINOPHEN 325 MG TAB PO PRN (22:13)
[2021-06-16] MEDS ORDERED: ICU PROTOCOL FOR HYPERGLYCEMIA PRN (22:13)
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
[2021-06-16] MEDS ORDERED: PNEUMOCOCCAL POLYSACCHARIDES 25 MCG/0.5 ML VIAL/SYR IM ONE (22:51)
[2021-06-16] MEDS ORDERED: FLUARIX QUADRIVALENT 0.5 ML SYR IM ONE (22:51)
[2021-06-16] MEDS: METOPROLOL TARTRATE 25 MG TAB PO SCH (23:01)
[2021-06-17] MEDS ORDERED: NORMOSOL-R 1,000 ML IV ONE (00:03)
[2021-06-17 03:42] LABS: Hematocrit (blood only) 39.3 % (42-52); Mean Corpuscular Hemoglobin 29.5 pg (25-34); Mean Corpuscular Hgb Conc 33.1 g/dL (32-36); Mean Corpuscular Volume 89.3 fL (80-100); Mean Platelet Volume 9.9 fL (7.4-10.4); Platelet Count 241 K/uL (130-400); RDW Coefficient of Variation 14.9 % (11.5-14.5); RDW Standard Deviation 48.6 fL (36.4-46.3); White Blood Count 8.49 K/uL (4.8-10.8)
[2021-06-17 04:03] LABS: Calcium 8.7 mg/dl (8.5-10.1); Creatinine Clr Calc Pharmacy 55.3 ml/min; Est GFR (African American) 48.3 ml/min; Est GFR (Non-African American) 41.7 ml/min; Potassium 4.1 mmol/L (3.5-5.1)
[2021-06-17 04:08] LABS: Appearance Urine Clear (Clear); Bacteria Urine Automated Negative (Negative); Bilirubin Urine Negative (Negative); Blood Urine Negative (Negative); Color Urine Dark Yellow; Epithelial Cell Urine Auto 20-30 /lpf (0-5); Glucose Urine UA Negative (Negative); Ketones Urine Trace (Negative); Leukocyte Esterase Urine Negative (Negative); Nitrite Urine Negative (Negative); Protein Urine 1+ (Negative); Specific Gravity Urine 1.025 (1.000-1.030); Urobilinogen Urine Negative (Negative); pH Urine 5.5 (4.5-7.5)
[2021-06-17 04:12] LABS: Troponin I 1.31 ng/ml (0-0.045)
[2021-06-17 05:23] LABS: Partial Thromboplastin Ratio 1.5; Partial Thromboplastin Time 40.7 Seconds (21.0-31.0)
[2021-06-17 05:30] LABS: Basophils # (auto) 0.02 K/uL (0-0.2); Basophils % (auto) 0.2 %; Eosinophils # (auto) 0.07 K/uL (0-0.5); Eosinophils % (auto) 0.8 %; Immature Granulocytes # (auto) 0.01 K/uL (0.00-0.02); Immature Granulocytes % (auto) 0.1 %; Lymphocytes # (auto) 2.17 K/uL (1.2-3.4); Lymphocytes % (auto) 25.6 %; Monocytes % (auto) 10.6 %; Neutrophils # (auto) 5.32 K/uL (1.4-6.5); Neutrophils % (auto) 62.7 %
[2021-06-17 06:32] LABS: Mucus Urine Present (None Prsent); RBC Urine Automated 0-4 /hpf (0-4)
[2021-06-17 06:33] LABS: Calcium Oxalate Crystals Urine Present (None Prsent)
--- NOTE | 2021-06-17 07:23 | Billing Data ---
Date of Service June 16, 2021 Coding Level of Care Code 98862 Initial Inpt Care Lvl 3
[2021-06-17] MEDS: ASPIRIN 81 MG ECTAB PO SCH (07:58)
[2021-06-17] MEDS: METOPROLOL TARTRATE 25 MG TAB PO SCH (07:58)
[2021-06-17] MEDS ORDERED: PERFLUTREN LIPID MICROSPHERE (DEFINITY) IV ONE (07:58)
--- NOTE | 2021-06-17 08:49 | Critical Care Progress Note ---
Date of Service June 17, 2021 Assessment & Plan (1) NSTEMI (non-ST elevated myocardial infarction): Plan: Impression: 60-year-old male admitted to [facility], to the ICU, for NSTEMI and unstable chest pain not relieved with nitro drip, heparin drip. Monitoring in the ICU before scheduled catheterization, as patient is high-risk for progression to need for emergent catheterization. Neuro - [facility] ICU: Negative Depression: continue home Citalopram 20mg PO daily Cardiac - 1. NSTEMI: - Troponin initially negative on admission but .148 at 1900 and increased to 1.31 at 0300 cortney - EKG without ST/T changes - Cardiology consulted - scheduled for cath this morning - Aspirin 324mg PO x1 in the ED; will continue with 81mg PO daily - defer initiation of DAPT to Cardiology - continue Heparin gtt and Nitro gtt - transition from Pravastatin to Atorvastatin 80mg PO daily (high-intensity) - transition from Lopressor to Toprol XL 25mg PO daily (given HFrEF) 2. HFrEF, likely chronic 2/2 ischemic cardiomyopathy. - appears euvolemic on exam and BNP 305, but CXR with evidence of pulmonary edema - TTE with EF 25-30%, severely reduced LV systolic fxn, diffuse hypokinesis/akinesis - will hold on diuresis for now - hold home Lisinopril given AB (see below) - cautious use of further IVFs - will need to initiate EVELYN-I vs ARB vs Entresto before discharge, pending improvement in renal function - per Cardiology - Cardiology will discuss ICD with patient Respiratory - ?COPD although patient denies previous spirometry/PFTs, is not on inhalers, and does experience wheezing/SOB at home. However PCP reportedly did prescribe inhalers - patient did not fill scripts due to expense. - currently satting well on RA, no concerns - recommend further eval/management per PCP (i.e. spirometry/PFT) GI - 1. NPO, pending cath today 2. Ulcerative colitis, chronic, but with recent exacerbation in diarrhea x several months. - continue home Balsalazide - f/u with GI as outpatient for further eval/management RENAL/LYTES - AB, unclear baseline function. Likely pre-renal injury due to dehydration in addition to diarrhea (UC). Improving s/p IVFs. - s/p 1L NSS bolus, now on Normosol-R @80cc/hr x1L - Cr 2.08 --> 1.72 today - cautious with further IV fluids given HFrEF and CXR evidence of pulmonary edema - Avoid nephrotoxins renally adjust medication - Monitor with routine BMP - Strict I's and O's ENDO - History of prediabetes, no history of thyroid disease - ICU hyperglycemic protocol HEME - H&H stable, monitor routine CBC ID - No indication for infectious process at this time LINES/IV ACCESS - Peripheral IVs intact DVT PROPHYLAXIS - SCDs, Heparin gtt CODE STATUS - full code Thank you for allowing us to be part of this patient's care. Please refer to Dr. Caldwell's documentation for any further recommendations. (2) Acute kidney injury: (3) Ischemic cardiomyopathy: (4) CAD (coronary artery disease): (5) Ulcerative colitis: (6) Depression: Admission and Anticipated Discharge Date Admission Date: June 16, 2021 Supervising Physician Co-Signing Physician Notes Patient seen and examined. EMR reviewed. Discussed on multidisciplinary rounds. Discussed with family practice resident and agree with assessment and plan as noted above Patient admitted with acute coronary syndrome placed on nitro drip for pain control. His troponin is elevated. He is seen by cardiology and plans on going to the Nurse Discharge Planner today for cardiac catheterization. Echocardiogram showed an EF of 25%. Does have a mild kidney injury which is improving. Additional recommendations will depend on findings at cardiac catheterization. Subjective Patient required increase in Nitro gtt due to worsening chest pain; EKG done, without ST/T changes. Nitro gtt decreased back to previous this AM due to mild hypotension. This morning the patient reports persistent 7/10 non-radiating substernal chest pain without associated diaphoresis, SOB, or dizziness/lightheadedness. He reports 1-week h/o intermittent chest pain occurring with with activity and at rest that had resolved within several minutes without intervention. Denies recent orthopnea, PND, exertional dyspnea. 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 Denies complete resolution of chest pain at any point since onset. Also reports being dehydrated yesterday due to high-intensity, prolonged physical labor. Reports non-bloody diarrhea (no mucus) 3-4 times per day for the last several months, which is worse than previous baseline, despite taking daily UC medication. Has upcoming appointment for colonoscopy with GI. Also reports 30 pack year smoking history; quit in 2009 after cath/stents. Reports that his doctor prescribed inhalers for him, although he denies spirometry/PFT testing. He did not pickle maker inhalers due to cost. Also reports 3-4 drinks per week of alcohol. No drug use. Review of Systems Review of Systems: Denies fever/chills, palpitations, SOB, cough, N/V, abdominal pain, rash. Physical Exam Physical Exam: General: A&Ox3. NAD. Cooperative. HEENT: Atraumatic, normocephalic. Pulm: CTAB A&P. -wheezes, -rales, -rhonchi. Symmetrical chest rise. No increase work of breathing. No respiratory distress. Cardiac: RRR, -mrg. Radial pulses intact and symmetrical. Hepatojugular reflex negative. No LE edema. Chest: mild tenderness to palpation of sternum Abdominal: protuberant but soft and non-tender, NA BS x 4 Skin: warm, dry, no rash Results & Data Results & Data ([facility]) Vital Signs (Past 12 Hours) Vital Signs Temp Pulse Pulse Resp BP BP Pulse Ox 06/17/21 08:00 64 15 127/72 97 06/17/21 07:00 60 12 112/72 97 06/17/21 05:15 57 L 24 94/69 L 96 06/17/21 05:00 58 L 14 108/73 96 06/17/21 04:45 57 L 22 110/74 96 06/17/21 04:30 57 L 18 120/79 98 06/17/21 04:15 57 L 111/69 98 06/17/21 04:00 56 L 24 104/69 97 06/17/21 03:45 58 L 20 102/74 97 06/17/21 03:43 36.5 C 06/17/21 03:30 57 L 17 98/66 L 95 06/17/21 03:15 58 L 17 109/77 97 06/17/21 03:00 61 13 106/77 96 06/17/21 02:45 59 L 15 88/70 L 98 06/17/21 02:30 57 L 15 102/67 98 06/17/21 02:15 54 L 14 99/67 L 97 06/17/21 02:00 36.4 C L 55 L 15 100/67 97 06/17/21 01:45 56 L 15 101/65 97 06/17/21 01:30 57 L 21 104/66 97 06/17/21 01:15 58 L 15 98/67 L 98 06/17/21 01:00 59 L 17 91/66 L 97 06/17/21 00:45 57 L 17 95/67 L 97 06/17/21 00:30 58 L 21 99/70 L 95 06/17/21 00:15 60 17 86/71 L 97 06/17/21 00:04 61 06/17/21 00:00 62 17 85/71 L 97 06/16/21 23:45 66 19 110/74 99 06/16/21 23:30 73 19 116/72 98 06/16/21 23:15 76 20 99/71 L 96 06/16/21 23:00 77 20 105/66 96 06/16/21 22:45 76 20 101/69 97 06/16/21 22:30 80 23 103/73 94 06/16/21 22:18 36.5 C 82 80 15 117/86 95 06/16/21 22:15 36.5 C 80 24 117/86 95 06/16/21 22:14 86 19 95 Resident Activity Tracking Resident Involvement: Resident Care Provided Care Provided: Adult Hospital Medicine
--- NOTE | 2021-06-17 09:38 | Cardiology Consultation ---
Date of Consultation June 17, 2021 Assessment & Plan (1) NSTEMI (non-ST elevated myocardial infarction): (2) Acute kidney injury: (3) Ischemic cardiomyopathy: (4) ASCVD (arteriosclerotic cardiovascular disease): Complex 60-year-old male above admitted with unstable angina pectoris, non-ST segment elevation myocardial infarction. The patient is currently chest pain- free after having mild stuttering chest pain throughout the night and early AM Recommendations: NPO status in anticipation of cardiac catheterization. Continue heparin. Continue aspirin. Change to high intensity statin therapy (pravastatin to atorvastatin) Continue beta-jammie therapy, switching to metoprolol succinate given systolic congestive heart failure Hold off on EVELYN/ARB/Entresto/spironolactone for now, RE: Renal dysfunction. If unable to utilize will need long acting nitrates then hydralazine. No indication for diuretic therapy Eventual discussion regarding device implantation (not discussed during initial consultation) Supervising Physician Co-Signing Physician Notes Patient seen examined the bedside. Reports waxing and waning episodes of chest discomfort throughout the night. Currently chest pain-free. Troponin mildly elevated. Complex cardiovascular history listed above. Denies orthopnea or PND. No dysrhythmias on telemetry. PE: VSS. Borderline hypotensive. GEN: NAD, AAOx3. Heart: Regular, normal S1-S2. No murmur. Lungs: Clear bilateral, no rales, rhonchi, wheeze. Extremities: No edema. Pulses: 3/4 right radial pulse, 2/4 right femoral pulse. A/P: Agree with above PA-C history, physical exam, assessment and plan. Complex 60-year-old patient admitted with NSTEMI and stuttering resting angina. Risk versus benefit of urgent cardiac catheterization discussed. Specifically reviewed potential nephrotoxicity in the setting of contrast administration. Patient voiced understanding. Agreeable to proceed with left heart catheterization today with potential intervention if indicated. Reduce IV nitro infusion by one half due to borderline hypotension. Continue intravenous heparin infusion. Further recommendations pending result of procedure. History of Present Illness Reason for Consultation: Chest pain Requesting Physician: Rodrigo Attending Physician: Bj History of Present Illness Mr. Motta is a 60-year-old male who is being seen at the request of Dr. Domenica Wallace. Reason for consultation is chest pain. Mr. Motta notes experiencing an episode of chest discomfort reminiscent of the pain associated with his prior myocardial infarction in 2009 approximately 1 week ago, at rest, associated with a headache, aided after a couple of hours by 2 bare aspirins. Yesterday, Mr. Motta was out cutting wood behind his house when he developed significant, 10 out of 10, substernal sharp chest pain that was associated with a cold sweat, dizziness, weakness, pain radiating to the jaw and teeth, bilateral arm weakness, significant reduction in energy, mild shortness of breath. He notes taking sublingual nitroglycerin when walking down through the field without much benefit. Notes having to stop and rest multiple times, ultimately making his way to the porch where he had to sit due to "not having enough energy to move." His girlfriend came home and transported him to the [facility] ER. EKG on presentation revealed sinus rhythm at 90 bpm with frequent premature ventricular complexes, evidence of an old inferior infarct, possible old anterior infarct. Initial troponin was less than 0.015, rising to 0.148 then 1.310. Creatinine on presentation was 2.08. This morning, the patient's creatinine is 1.72. Chest x-ray was interpreted as demonstrating moderate pulmonary edema per radiological interpretation. The patient notes mild stuttering chest discomfort throughout the night as well as early this morning. He is currently chest pain-free, receiving oral metoprolol, aspirin, statin, IV heparin, and IV nitroglycerin. The patient was notably only taking aspirin at home. 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[place], [place]; transported to [facility], undergoing PCI of the RCA with 2 stents Status post PCI of the mid LAD with 3 stents in September 2009 ([facility]) Catheterization in July 2013 notable for 30 to 40% distal left main stenosis, negative by FFR History of bacterial endocarditis from a septic joint, 2016 COPD with longstanding history of tobacco abuse, reformed in 2009 Hypertension Dyslipidemia History of prediabetes Ulcerative colitis History of CVA Right eye blindness Psoriasis Depression Anxiety Right inguinal hernia repair Status post left hip replacement Status post right hip replacement Family History: Mother with an ID at 70. Father at the age of 87, natural causes. He has 2 brothers and 5 sisters. 1 sister passed with cirrhosis. Social History: Reformed smoker, 1+ pack per day from his teenage years until the ID in 2009. Alcohol: A couple drinks per week. No illegal drug use. 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 Girlfriend. 2 grown children. Outpatient medications: Aspirin only Complete Review of Systems: No abrupt change in weight. No current fevers. No soaking night sweats. HEENT: Blind in his right eye. Pulmonary: COPD. Cardiac: See above. GI/Abd: istory of colitis with chronic diarrhea, without recent bloody stools. No liver problems. Denies history of kidney issues. Vascular: No claudication. Hematologic: No coagulation disorder. No recent bleeding. Musculoskeletal: Arthritis. Skin: + Rash, psoriasis. Neurologic: History of TIA/CVA. Male : Nocturia. Endocrine: Prediabetic. No thyroid issues. Complete Review of Systems is as stated above or negative. Otherwise, negative or noncontributory. Allergies Allergy/AdvReac Type Severity Reaction Status Date / Time No Known Allergies Allergy Verified 06/16/21 19:03 Home Medications Medication Instructions Recorded Confirmed Type aspirin,buffered (calcium 325 mg PO QAM 06/05/18 06/16/21 History carbonate-magnesium) 325 mg tablet dupilumab 300 mg/2 mL subcutaneous 300 mg SUBCUT UD 03/02/19 06/16/21 History syringe (Dupixent) nitroglycerin 0.4 mg sublingual 0.4 mg SUBLINGUAL DIRECTED PRN 02/16/20 06/16/21 Rx tablet #25 tab pravastatin 20 mg tablet 20 mg PO HS #90 tab 02/16/20 06/16/21 Rx lisinopril 2.5 mg tablet 2.5 mg PO DAILY #90 tab 10/14/20 06/16/21 Rx tramadol 50 mg tablet 50 mg PO Q8H PRN #30 tab 01/08/21 06/16/21 Rx balsalazide 750 mg capsule 2,250 mg PO TID 06/16/21 06/16/21 History Patient History Medical History Anxiety Bacterial endocarditis 2015. 2/2 septic joint-->septicemia. Vegetations on mitral valve by CELINA. Tx with antibiotics, made full recovery. 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 Subsequent cath + 2 more stents later that year. Psoriasis Stroke Multiple ophthalmic artery strokes and evidence of old lacunar infarcts on MRI (including R MCA territory and B/L cerebellum) per brain MRI 01/28/17. Neuro did Holter to r/o Afib, no a-fib found. Pt on 325mg ASA daily. Residual blindness in R eye, no other deficits. Ulcerative colitis Surgical History H/O colonoscopy History of cardiac cath X2 -- () History of esophagogastroduodenoscopy (EGD) History of heart artery stent TOTAL 5 STENTS () History of right inguinal hernia repair History of total left hip arthroplasty LEFT PACO (1997) LEFT PACO (2015)+ANTIBIOTIC SPACER (2015) --> LEFT PACO (09/2016) History of total right hip arthroplasty 1998 Family History Other No pertinent family history in first degree relatives Denies family history of Ovarian cancer Prostate cancer Coronary heart disease Breast cancer Colorectal cancer Social History Smoking Status: Former smoker Cigarettes Per Day: h/o 1ppd; Smoking End Date: 2009; Second Hand Exposure: Yes (father smoked); Hx Alcohol Use: Yes Alcohol type: hard liquor Hx Substance Use: No Preferred Language: Vincentian Communication Ability: Effective Visual Impairment: No Limitations Social Security Assessor Required: No Beliefs That Will Affect Care: None marital status: Single Current Living Situation: Significant Other Current Living Situation Comment: Lives with girlfriend current occupational status: retired Other Information That Helps Us Care for You: Yes Feels Safe at Home: Yes Safety Concerns: Feels Safe At This Time Childhood Exposure to Second-Hand Smoke: Yes caffeine: Yes Dental Care, Regularly: No Physical Activity Frequency: Daily Seatbelt Use: never Assistive Devices: None Assistive Devices Comment: at home per pt Physical Exam Physical Exam: General: A&Ox3. NAD. HENT: Normocephalic. Atraumatic. Eyes: Conjunctiva pink, sclera clear. Neck: No carotid bruits. No JVD. No HJR. Heart: Distant heart sounds. Appears RRR, 66 bpm. I could not appreciate a murmur. No rub. No gallop. PMI is nondisplaced. Lungs: Anterior expiratory wheeze. Abdomen: +BS. Soft. Nontender. No masses or organomegaly. Extremities: No clubbing, cyanosis, or edema. Limited neurological examination is without focal deficits. Pulses: radial=2/4, posterior tibial=2/4. Results & Data ([facility]) Vital Signs (Past 12 Hours) Vital Signs Temp Pulse Pulse Resp BP BP Pulse Ox 06/17/21 08:00 36.5 C 64 15 127/72 97 06/17/21 07:00 60 12 112/72 97 06/17/21 05:15 57 L 24 94/69 L 96 06/17/21 05:00 58 L 14 108/73 96 06/17/21 04:45 57 L 22 110/74 96 06/17/21 04:30 57 L 18 120/79 98 06/17/21 04:15 57 L 111/69 98 06/17/21 04:00 56 L 24 104/69 97 06/17/21 03:45 58 L 20 102/74 97 06/17/21 03:43 36.5 C 06/17/21 03:30 57 L 17 98/66 L 95 06/17/21 03:15 58 L 17 109/77 97 06/17/21 03:00 61 13 106/77 96 06/17/21 02:45 59 L 15 88/70 L 98 06/17/21 02:30 57 L 15 102/67 98 06/17/21 02:15 54 L 14 99/67 L 97 06/17/21 02:00 36.4 C L 55 L 15 100/67 97 06/17/21 01:45 56 L 15 101/65 97 06/17/21 01:30 57 L 21 104/66 97 06/17/21 01:15 58 L 15 98/67 L 98 06/17/21 01:00 59 L 17 91/66 L 97 06/17/21 00:45 57 L 17 95/67 L 97 06/17/21 00:30 58 L 21 99/70 L 95 06/17/21 00:15 60 17 86/71 L 97 06/17/21 00:04 61 06/17/21 00:00 62 17 85/71 L 97 06/16/21 23:45 66 19 110/74 99 06/16/21 23:30 73 19 116/72 98 06/16/21 23:15 76 20 99/71 L 96 06/16/21 23:00 77 20 105/66 96 06/16/21 22:45 76 20 101/69 97 06/16/21 22:30 80 23 103/73 94 06/16/21 22:18 36.5 C 82 80 15 117/86 95 06/16/21 22:15 36.5 C 80 24 117/86 95 06/16/21 22:14 86 19 95 Laboratory Results Laboratory Results - last 24 hr 06/16/21 06/16/21 06/16/21 17:00 17:00 17:00 WBC Cancelled RBC Cancelled Hgb Cancelled Hct Cancelled MCV Cancelled MCH Cancelled MCHC Cancelled RDW Std Deviation Cancelled RDW Coeff of Arline Cancelled Plt Count Cancelled MPV Cancelled Immature Gran % (Auto) Cancelled Neut % (Auto) Cancelled Lymph % (Auto) Cancelled Izard % (Auto) Cancelled Eos % (Auto) Cancelled Baso % (Auto) Cancelled Neut # (Auto) Cancelled Lymph # (Auto) Cancelled [place] # (Auto) Cancelled Eos # (Auto) Cancelled Baso # (Auto) Cancelled Immature Gran # (Auto) Cancelled Absolute Nucleated RBC Cancelled Nucleated RBC % (auto) Cancelled Neutrophils % (Manual) Cancelled Band Neutrophils % Cancelled Lymphocytes % (Manual) Cancelled Prolymphocyte % Cancelled Reactive Lymphs % (Man) Cancelled Monocytes % (Manual) Cancelled Eosinophils % (Manual) Cancelled Basophils % (Manual) Cancelled Metamyelocytes % (Man) Cancelled Myelocytes % (Man) Cancelled Promyelocytes % (Man) Cancelled Blast Cells % (Manual) Cancelled Plasma Cell % (Manual) Cancelled Other Cells % Cancelled Nucleated RBC % Cancelled Neutrophils # (Manual) Cancelled Band Neutrophils # Cancelled Total Absolute Neuts Cancelled Lymphocytes # (Manual) Cancelled Prolymphocyte # Cancelled Reactive Lymphs # Cancelled Total Abs Lymphocytes Cancelled Monocytes # (Manual) Cancelled Eosinophils # (Manual) Cancelled Basophils # (Manual) Cancelled Metamyelocytes # (Man) Cancelled Myelocytes # (Manual) Cancelled Promyelocytes # (Man) Cancelled Blast Cells # (Man) Cancelled Plasma Cell # (Manual) Cancelled Other Cells # Cancelled Nucleated RBCs # (Man) Cancelled Hypersegmented Neuts Cancelled Hyposegmented Neuts Cancelled Hypogranular Neuts Cancelled Large Granular Lymphs Cancelled # Lrg Granular Lymphs Cancelled Hairy Cells Cancelled Smudge Cells Cancelled Toxic Granulation Cancelled Toxic Vacuolation Cancelled Dohle Bodies Cancelled Tin Rods Cancelled Platelet Estimate Cancelled Hypogranular Platelets Cancelled Clumped Platelets Cancelled Giant Platelets Cancelled Platelet Satelliting Cancelled RBC Morphology Cancelled Polychromasia Cancelled Hypochromasia Cancelled Poikilocytosis Cancelled Basophilic Stippling Cancelled Anisocytosis Cancelled Microcytosis Cancelled Macrocytosis Cancelled Spherocytes Cancelled Pappenheimer Bodies Cancelled Sickle Cells Cancelled Target Cells Cancelled Tear Drop Cells Cancelled Ovalocytes Cancelled Stomatocytes Cancelled [place]ck Bodies Cancelled Echinocytes Cancelled Acanthocytes (Spur) Cancelled Rouleaux Cancelled RBC Agglutinates Cancelled Schistocytes Cancelled RBC Morph Comment Cancelled Sezary Cell Cancelled PT Cancelled INR Cancelled APTT Cancelled PTT Ratio Cancelled Sodium 136 Potassium Chloride 109 H Carbon Dioxide 20 L Anion Gap 8.0 BUN 27 H Creatinine 2.08 H Est Cr Clr Drug Dosing 43.9 Est GFR ( Amer) 38.4 Est GFR (Non-Af Amer) 33.1 BUN/Creatinine Ratio 13.1 Glucose 104 H POC Glucose Lactate Calcium 9.5 Magnesium Total Bilirubin 0.5 AST ALT 38 Alkaline Phosphatase 164 H Troponin I < 0.015 NT-Pro-B Natriuret Pep Total Protein 8.9 H Albumin 3.9 Globulin 5.0 H Albumin/Globulin Ratio 0.8 L Triglycerides Cholesterol LDL Cholesterol, Calc VLDL Cholesterol, Calc HDL Cholesterol Cholesterol/HDL Ratio Lipase 219 Procalcitonin Urine Color Urine Appearance Urine pH Ur Specific [place] Urine Protein Urine Glucose (UA) Urine Ketones Urine Blood Urine Nitrite Urine Bilirubin Urine Urobilinogen Ur Leukocyte Esterase Urine WBC (Auto) Urine RBC (Auto) U Hyaline Cast (Auto) U Epithel Cells (Auto) Urine Bacteria (Auto) Calcium Oxalate Crystal Granular Casts Urine Mucus Nasal Screen MRSA (PCR) COVID-19 Eval Order SARS-CoV-2 (PCR) 06/16/21 06/16/21 06/16/21 17:00 17:36 17:36 WBC 15.06 H RBC 4.87 Hgb 14.6 Hct 44.5 MCV 91.4 MCH 30.0 MCHC 32.8 RDW Std Deviation 49.4 H RDW Coeff of Arline 14.7 H Plt Count 239 MPV 10.2 Immature Gran % (Auto) 0.3 Neut % (Auto) 85.3 Lymph % (Auto) 9.0 Izard % (Auto) 5.0 Eos % (Auto) 0.1 Baso % (Auto) 0.3 Neut # (Auto) 12.85 H Lymph # (Auto) 1.35 Izard # (Auto) 0.76 H Eos # (Auto) 0.02 Baso # (Auto) 0.04 Immature Gran # (Auto) 0.04 H Absolute Nucleated RBC Nucleated RBC % (auto) Neutrophils % (Manual) Band Neutrophils % Lymphocytes % (Manual) Prolymphocyte % Reactive Lymphs % (Man) Monocytes % (Manual) Eosinophils % (Manual) Basophils % (Manual) Metamyelocytes % (Man) Myelocytes % (Man) Promyelocytes % (Man) Blast Cells % (Manual) Plasma Cell % (Manual) Other Cells % Nucleated RBC % Neutrophils # (Manual) Band Neutrophils # Total Absolute Neuts Lymphocytes # (Manual) Prolymphocyte # Reactive Lymphs # Total Abs Lymphocytes Monocytes # (Manual) Eosinophils # (Manual) Basophils # (Manual) Metamyelocytes # (Man) Myelocytes # (Manual) Promyelocytes # (Man) Blast Cells # (Man) Plasma Cell # (Manual) Other Cells # Nucleated RBCs # (Man) Hypersegmented Neuts Hyposegmented Neuts Hypogranular Neuts Large Granular Lymphs # Lrg Granular Lymphs Hairy Cells Smudge Cells Toxic Granulation Toxic Vacuolation Dohle Bodies Tin Rods Platelet Estimate Hypogranular Platelets Clumped Platelets Giant Platelets Platelet Satelliting RBC Morphology Polychromasia Hypochromasia Poikilocytosis Basophilic Stippling Anisocytosis Microcytosis Macrocytosis Spherocytes Pappenheimer Bodies Sickle Cells Target Cells Tear Drop Cells Ovalocytes Stomatocytes [place]ck Bodies Echinocytes Acanthocytes (Spur) Rouleaux RBC Agglutinates Schistocytes RBC Morph Comment Sezary Cell PT 10.3 INR 1.0 APTT 26.1 PTT Ratio 1.0 Sodium Potassium Chloride Carbon Dioxide Anion Gap BUN Creatinine Est Cr Clr Drug Dosing Est GFR ( Amer) Est GFR (Non-Af Amer) BUN/Creatinine Ratio Glucose POC Glucose Lactate Calcium Magnesium Total Bilirubin AST ALT Alkaline Phosphatase Troponin I NT-Pro-B Natriuret Pep Total Protein Albumin Globulin Albumin/Globulin Ratio Triglycerides Cholesterol LDL Cholesterol, Calc VLDL Cholesterol, Calc HDL Cholesterol Cholesterol/HDL Ratio Lipase Procalcitonin < 0.05 Urine Color Urine Appearance Urine pH Ur Specific [place] Urine Protein Urine Glucose (UA) Urine Ketones Urine Blood Urine Nitrite Urine Bilirubin Urine Urobilinogen Ur Leukocyte Esterase Urine WBC (Auto) Urine RBC (Auto) U Hyaline Cast (Auto) U Epithel Cells (Auto) Urine Bacteria (Auto) Calcium Oxalate Crystal Granular Casts Urine Mucus Nasal Screen MRSA (PCR) COVID-19 Eval Order SARS-CoV-2 (PCR) 06/16/21 06/16/21 06/16/21 17:37 17:37 17:41 WBC RBC Hgb Hct MCV MCH MCHC RDW Std Deviation RDW Coeff of Arline Plt Count MPV Immature Gran % (Auto) Neut % (Auto) Lymph % (Auto) Izard % (Auto) Eos % (Auto) Baso % (Auto) Neut # (Auto) Lymph # (Auto) Izard # (Auto) Eos # (Auto) Baso # (Auto) Immature Gran # (Auto) Absolute Nucleated RBC Nucleated RBC % (auto) Neutrophils % (Manual) Band Neutrophils % Lymphocytes % (Manual) Prolymphocyte % Reactive Lymphs % (Man) Monocytes % (Manual) Eosinophils % (Manual) Basophils % (Manual) Metamyelocytes % (Man) Myelocytes % (Man) Promyelocytes % (Man) Blast Cells % (Manual) Plasma Cell % (Manual) Other Cells % Nucleated RBC % Neutrophils # (Manual) Band Neutrophils # Total Absolute Neuts Lymphocytes # (Manual) Prolymphocyte # Reactive Lymphs # Total Abs Lymphocytes Monocytes # (Manual) Eosinophils # (Manual) Basophils # (Manual) Metamyelocytes # (Man) Myelocytes # (Manual) Promyelocytes # (Man) Blast Cells # (Man) Plasma Cell # (Manual) Other Cells # Nucleated RBCs # (Man) Hypersegmented Neuts Hyposegmented Neuts Hypogranular Neuts Large Granular Lymphs # Lrg Granular Lymphs Hairy Cells Smudge Cells Toxic Granulation Toxic Vacuolation Dohle Bodies Tin Rods Platelet Estimate Hypogranular Platelets Clumped Platelets Giant Platelets Platelet Satelliting RBC Morphology Polychromasia Hypochromasia Poikilocytosis Basophilic Stippling Anisocytosis Microcytosis Macrocytosis Spherocytes Pappenheimer Bodies Sickle Cells Target Cells Tear Drop Cells Ovalocytes Stomatocytes [place]ck Bodies Echinocytes Acanthocytes (Spur) Rouleaux RBC Agglutinates Schistocytes RBC Morph Comment Sezary Cell PT INR APTT PTT Ratio Sodium Potassium 4.1 Chloride Carbon Dioxide Anion Gap BUN Creatinine Est Cr Clr Drug Dosing Est GFR ( Amer) Est GFR (Non-Af Amer) BUN/Creatinine Ratio Glucose POC Glucose Lactate Calcium Magnesium 2.1 Total Bilirubin AST 20 ALT Alkaline Phosphatase Troponin I NT-Pro-B Natriuret Pep Total Protein Albumin Globulin Albumin/Globulin Ratio Triglycerides Cholesterol LDL Cholesterol, Calc VLDL Cholesterol, Calc HDL Cholesterol Cholesterol/HDL Ratio Lipase Procalcitonin Urine Color Urine Appearance Urine pH Ur Specific [place] Urine Protein Urine Glucose (UA) Urine Ketones Urine Blood Urine Nitrite Urine Bilirubin Urine Urobilinogen Ur Leukocyte Esterase Urine WBC (Auto) Urine RBC (Auto) U Hyaline Cast (Auto) U Epithel Cells (Auto) Urine Bacteria (Auto) Calcium Oxalate Crystal Granular Casts Urine Mucus Nasal Screen MRSA (PCR) COVID-19 Eval Order Covid19 at [facility] SARS-CoV-2 (PCR) NEGATIVE 06/16/21 06/16/21 06/16/21 17:41 19:50 21:41 WBC RBC Hgb Hct MCV MCH MCHC RDW Std Deviation RDW Coeff of Arline Plt Count MPV Immature Gran % (Auto) Neut % (Auto) Lymph % (Auto) [place] % (Auto) Eos % (Auto) Baso % (Auto) Neut # (Auto) Lymph # (Auto) Iz[place] # (Auto) Eos # (Auto) Baso # (Auto) Immature Gran # (Auto) Absolute Nucleated RBC Nucleated RBC % (auto) Neutrophils % (Manual) Band Neutrophils % Lymphocytes % (Manual) Prolymphocyte % Reactive Lymphs % (Man) Monocytes % (Manual) Eosinophils % (Manual) Basophils % (Manual) Metamyelocytes % (Man) Myelocytes % (Man) Promyelocytes % (Man) Blast Cells % (Manual) Plasma Cell % (Manual) Other Cells % Nucleated RBC % Neutrophils # (Manual) Band Neutrophils # Total Absolute Neuts Lymphocytes # (Manual) Prolymphocyte # Reactive Lymphs # Total Abs Lymphocytes Monocytes # (Manual) Eosinophils # (Manual) Basophils # (Manual) Metamyelocytes # (Man) Myelocytes # (Manual) Promyelocytes # (Man) Blast Cells # (Man) Plasma Cell # (Manual) Other Cells # Nucleated RBCs # (Man) Hypersegmented Neuts Hyposegmented Neuts Hypogranular Neuts Large Granular Lymphs # Lrg Granular Lymphs Hairy Cells Smudge Cells Toxic Granulation Toxic Vacuolation Dohle Bodies Tin Rods Platelet Estimate Hypogranular Platelets Clumped Platelets Giant Platelets Platelet Satelliting RBC Morphology Polychromasia Hypochromasia Poikilocytosis Basophilic Stippling Anisocytosis Microcytosis Macrocytosis Spherocytes Pappenheimer Bodies Sickle Cells Target Cells Tear Drop Cells Ovalocytes Stomatocytes [place]ck Bodies Echinocytes Acanthocytes (Spur) Rouleaux RBC Agglutinates Schistocytes RBC Morph Comment Sezary Cell PT INR APTT PTT Ratio Sodium Potassium Chloride Carbon Dioxide Anion Gap BUN Creatinine Est Cr Clr Drug Dosing Est GFR ( Amer) Est GFR (Non-Af Amer) BUN/Creatinine Ratio Glucose POC Glucose Lactate 1.3 Calcium Magnesium Total Bilirubin AST ALT Alkaline Phosphatase Troponin I 0.148 H* NT-Pro-B Natriuret Pep 305 Total Protein Albumin Globulin Albumin/Globulin Ratio Triglycerides Cholesterol LDL Cholesterol, Calc VLDL Cholesterol, Calc HDL Cholesterol Cholesterol/HDL Ratio Lipase Procalcitonin Urine Color Urine Appearance Urine pH Ur Specific [place] Urine Protein Urine Glucose (UA) Urine Ketones Urine Blood Urine Nitrite Urine Bilirubin Urine Urobilinogen Ur Leukocyte Esterase Urine WBC (Auto) Urine RBC (Auto) U Hyaline Cast (Auto) U Epithel Cells (Auto) Urine Bacteria (Auto) Calcium Oxalate Crystal Granular Casts Urine Mucus Nasal Screen MRSA (PCR) COVID-19 Eval Order SARS-CoV-2 (PCR) 06/16/21 06/16/21 06/17/21 22:00 23:54 03:32 WBC 8.49 RBC 4.40 L Hgb 13.0 L Hct 39.3 L MCV 89.3 MCH 29.5 MCHC 33.1 RDW Std Deviation 48.6 H RDW Coeff of Arline 14.9 H Plt Count 241 MPV 9.9 Immature Gran % (Auto) 0.1 Neut % (Auto) 62.7 Lymph % (Auto) 25.6 Izard % (Auto) 10.6 Eos % (Auto) 0.8 Baso % (Auto) 0.2 Neut # (Auto) 5.32 Lymph # (Auto) 2.17 [place]ard # (Auto) 0.90 H Eos # (Auto) 0.07 Baso # (Auto) 0.02 Immature Gran # (Auto) 0.01 Absolute Nucleated RBC Nucleated RBC % (auto) Neutrophils % (Manual) Band Neutrophils % Lymphocytes % (Manual) Prolymphocyte % Reactive Lymphs % (Man) Monocytes % (Manual) Eosinophils % (Manual) Basophils % (Manual) Metamyelocytes % (Man) Myelocytes % (Man) Promyelocytes % (Man) Blast Cells % (Manual) Plasma Cell % (Manual) Other Cells % Nucleated RBC % Neutrophils # (Manual) Band Neutrophils # Total Absolute Neuts Lymphocytes # (Manual) Prolymphocyte # Reactive Lymphs # Total Abs Lymphocytes Monocytes # (Manual) Eosinophils # (Manual) Basophils # (Manual) Metamyelocytes # (Man) Myelocytes # (Manual) Promyelocytes # (Man) Blast Cells # (Man) Plasma Cell # (Manual) Other Cells # Nucleated RBCs # (Man) Hypersegmented Neuts Hyposegmented Neuts Hypogranular Neuts Large Granular Lymphs # Lrg Granular Lymphs Hairy Cells Smudge Cells Toxic Granulation Toxic Vacuolation Dohle Bodies Tin Rods Platelet Estimate Hypogranular Platelets Clumped Platelets Giant Platelets Platelet Satelliting RBC Morphology Polychromasia Hypochromasia Poikilocytosis Basophilic Stippling Anisocytosis Microcytosis Macrocytosis Spherocytes Pappenheimer Bodies Sickle Cells Target Cells Tear Drop Cells Ovalocytes Stomatocytes [place] Neck Bodies Echinocytes Acanthocytes (Spur) Rouleaux RBC Agglutinates Schistocytes RBC Morph Comment Sezary Cell PT INR APTT PTT Ratio Sodium Potassium Chloride Carbon Dioxide Anion Gap BUN Creatinine Est Cr Clr Drug Dosing Est GFR ( Amer) Est GFR (Non-Af Amer) BUN/Creatinine Ratio Glucose POC Glucose 101 H Lactate Calcium Magnesium Total Bilirubin AST ALT Alkaline Phosphatase Troponin I NT-Pro-B Natriuret Pep Total Protein Albumin Globulin Albumin/Globulin Ratio Triglycerides Cholesterol LDL Cholesterol, Calc VLDL Cholesterol, Calc HDL Cholesterol Cholesterol/HDL Ratio Lipase Procalcitonin Urine Color Urine Appearance Urine pH Ur Specific [place] Urine Protein Urine Glucose (UA) Urine Ketones Urine Blood Urine Nitrite Urine Bilirubin Urine Urobilinogen Ur Leukocyte Esterase Urine WBC (Auto) Urine RBC (Auto) U Hyaline Cast (Auto) U Epithel Cells (Auto) Urine Bacteria (Auto) Calcium Oxalate Crystal Granular Casts Urine Mucus Nasal Screen MRSA (PCR) Negative COVID-19 Eval Order SARS-CoV-2 (PCR) 06/17/21 06/17/21 06/17/21 03:32 03:35 04:36 WBC RBC Hgb Hct MCV MCH MCHC RDW Std Deviation RDW Coeff of Arline Plt Count MPV Immature Gran % (Auto) Neut % (Auto) Lymph % (Auto) [place] % (Auto) Eos % (Auto) Baso % (Auto) Neut # (Auto) Lymph # (Auto) [place] # (Auto) Eos # (Auto) Baso # (Auto) Immature Gran # (Auto) Absolute Nucleated RBC Nucleated RBC % (auto) Neutrophils % (Manual) Band Neutrophils % Lymphocytes % (Manual) Prolymphocyte % Reactive Lymphs % (Man) Monocytes % (Manual) Eosinophils % (Manual) Basophils % (Manual) Metamyelocytes % (Man) Myelocytes % (Man) Promyelocytes % (Man) Blast Cells % (Manual) Plasma Cell % (Manual) Other Cells % Nucleated RBC % Neutrophils # (Manual) Band Neutrophils # Total Absolute Neuts Lymphocytes # (Manual) Prolymphocyte # Reactive Lymphs # Total Abs Lymphocytes Monocytes # (Manual) Eosinophils # (Manual) Basophils # (Manual) Metamyelocytes # (Man) Myelocytes # (Manual) Promyelocytes # (Man) Blast Cells # (Man) Plasma Cell # (Manual) Other Cells # Nucleated RBCs # (Man) Hypersegmented Neuts Hyposegmented Neuts Hypogranular Neuts Large Granular Lymphs # Lrg Granular Lymphs Hairy Cells Smudge Cells Toxic Granulation Toxic Vacuolation Dohle Bodies Tin Rods Platelet Estimate Hypogranular Platelets Clumped Platelets Giant Platelets Platelet Satelliting RBC Morphology Polychromasia Hypochromasia Poikilocytosis Basophilic Stippling Anisocytosis Microcytosis Macrocytosis Spherocytes Pappenheimer Bodies Sickle Cells Target Cells Tear Drop Cells Ovalocytes Stomatocytes [place] Bodies Echinocytes Acanthocytes (Spur) Rouleaux RBC Agglutinates Schistocytes RBC Morph Comment Sezary Cell PT INR APTT 40.7 H PTT Ratio 1.5 Sodium 137 Potassium 4.1 Chloride 108 H Carbon Dioxide 22 Anion Gap 7.0 BUN 31 H Creatinine 1.72 H D Est Cr Clr Drug Dosing 55.3 Est GFR ( Amer) 48.3 Est GFR (Non-Af Amer) 41.7 BUN/Creatinine Ratio 18.0 Glucose 104 H POC Glucose Lactate Calcium 8.7 Magnesium Total Bilirubin AST ALT Alkaline Phosphatase Troponin I 1.310 H* NT-Pro-B Natriuret Pep Total Protein Albumin Globulin Albumin/Globulin Ratio Triglycerides 81 Cholesterol 211 H LDL Cholesterol, Calc 152 VLDL Cholesterol, Calc 16 HDL Cholesterol 43 Cholesterol/HDL Ratio 5 Lipase Procalcitonin Urine Color Dark Yellow Urine Appearance Clear Urine pH 5.5 Ur Specific [place] 1.025 Urine Protein 1+ H Urine Glucose (UA) Negative Urine Ketones Trace H Urine Blood Negative Urine Nitrite Negative Urine Bilirubin Negative Urine Urobilinogen Negative Ur Leukocyte Esterase Negative Urine WBC (Auto) 1-5 Urine RBC (Auto) 0-4 U Hyaline Cast (Auto) 10-30 H U Epithel Cells (Auto) 20-30 H Urine Bacteria (Auto) Negative Calcium Oxalate Crystal Present A Granular Casts 1-5 H Urine Mucus Present A Nasal Screen MRSA (PCR) COVID-19 Eval Order SARS-CoV-2 (PCR) Diagnostic Findings June 17, 2021 TTE interpretation summary ([facility], Dr. Engel): Technically adequate. Compared to prior study dated January 30, 2017, left ventricular systolic function has declined. Left ventricular systolic function is severely reduced. Ejection fraction 25 to 30%. Diffuse hypokinesis to akinesis. No significant valvular pathology.
--- NOTE | 2021-06-17 10:34 | Billing Data ---
Date of Service June 17, 2021 Coding Level of Care Code 05993 Subseq Hosp Care Lvl 2
--- NOTE | 2021-06-17 10:44 | Pre Anesthesia Assessment ---
Date of Service June 17, 2021 Pre Sedation Assessment Vital Signs Temp Pulse Pulse Pulse Resp BP BP 06/18/21 08:41 36.4 C L 06/18/21 08:13 69 20 125/82 06/18/21 08:00 80 06/18/21 04:00 36.8 C 70 15 130/75 06/18/21 00:00 36.6 C 57 L 17 111/63 06/17/21 20:00 36.8 C 66 15 111/70 06/17/21 18:25 63 17 122/70 06/17/21 17:09 67 16 101/68 06/17/21 16:45 71 21 06/17/21 16:30 64 20 06/17/21 16:15 65 19 06/17/21 16:00 63 21 106/74 06/17/21 15:45 63 19 06/17/21 15:30 60 24 06/17/21 15:16 87 18 06/17/21 15:00 69 21 06/17/21 14:45 64 22 137/91 06/17/21 14:30 57 L 16 112/72 06/17/21 14:15 57 L 17 115/85 06/17/21 14:00 61 22 111/75 06/17/21 13:45 58 L 16 138/91 06/17/21 13:30 53 L 15 135/82 06/17/21 13:15 53 L 14 120/85 06/17/21 13:00 55 L 16 119/82 06/17/21 12:45 36.6 C 59 L 54 L 21 120/81 06/17/21 12:30 56 L 18 105/77 06/17/21 10:42 64 20 06/17/21 10:30 52 L 14 97/62 L BP Pulse Ox 06/18/21 08:41 06/18/21 08:13 96 06/18/21 08:00 06/18/21 04:00 93 06/18/21 00:00 95 06/17/21 20:00 94 06/17/21 18:25 97 06/17/21 17:09 97 06/17/21 16:45 06/17/21 16:30 06/17/21 16:15 06/17/21 16:00 06/17/21 15:45 06/17/21 15:30 06/17/21 15:16 94 06/17/21 15:00 97 06/17/21 14:45 98 06/17/21 14:30 99 06/17/21 14:15 100 06/17/21 14:00 100 06/17/21 13:45 98 06/17/21 13:30 98 06/17/21 13:15 99 06/17/21 13:00 99 06/17/21 12:45 99 06/17/21 12:30 97 06/17/21 10:42 105/70 06/17/21 10:30 96 Cardiovascular + regular rate and + regular rhythm + S1 normal and + S2 normal; no murmur + femoral pulses present and + radial pulses present; no JVD and no carotid bruit no edema Respiratory + respiratory effort normal; no respiratory distress and no labored breathing + clear to auscultation bilaterally; no crackles, no rales, no rhonchi and no wheezes Pre-Sedation Airway Assessment Smoking Status: Former smoker Mallampati Class: III ASA: ASA4 NPO Status Date of Last Intake of Fluids: 06/16/21 Date of Last Intake of Solid Food: 06/16/21 Procedure Planning Contraindications for Sedation: none Current Medications Reviewed: Yes Notes The planned sedation has been discussed with the patient. Informed Consent was obtained. I have identified the patient, determined the appropriateness of sedation and have assessed the patient immediately prior to the procedure. All medicine(s) and interventions are by my order.
[2021-06-17 10:46] LABS: Partial Thromboplastin Ratio 1.6; Partial Thromboplastin Time 42.4 Seconds (21.0-31.0)
[2021-06-17] MEDS ORDERED: HEPARIN (PORCINE) 1000 UNIT/ML 10 ML (CATH LAB USE ONLY) ONE ×2 (10:54→11:29)
[2021-06-17] MEDS ORDERED: niCARdipine HCL INJ 2.5 MG/ML 10 ML AMP ONE (10:55)
[2021-06-17] MEDS ORDERED: fentaNYL citrate 100 MCG/2 ML VIAL ONE (10:55)
[2021-06-17] MEDS ORDERED: MIDAZOLAM HCL 1 MG/ML 2ML VIAL ONE ×2 (10:55→11:28)
[2021-06-17] MEDS ORDERED: NITROGLYCERIN/D5W 100MCG/ML 20ML SYR ONE (10:55)
--- NOTE | 2021-06-17 11:38 | Post Anesthesia Assessment ---
Date of Service June 17, 2021 Post Sedation Assessment Vital Signs Temp Pulse Pulse Pulse Resp BP BP 06/18/21 08:41 36.4 C L 06/18/21 08:13 69 20 125/82 06/18/21 08:00 80 06/18/21 04:00 36.8 C 70 15 130/75 06/18/21 00:00 36.6 C 57 L 17 111/63 06/17/21 20:00 36.8 C 66 15 111/70 06/17/21 18:25 63 17 122/70 06/17/21 17:09 67 16 101/68 06/17/21 16:45 71 21 06/17/21 16:30 64 20 06/17/21 16:15 65 19 06/17/21 16:00 63 21 106/74 06/17/21 15:45 63 19 06/17/21 15:30 60 24 06/17/21 15:16 87 18 06/17/21 15:00 69 21 06/17/21 14:45 64 22 137/91 06/17/21 14:30 57 L 16 112/72 06/17/21 14:15 57 L 17 115/85 06/17/21 14:00 61 22 111/75 06/17/21 13:45 58 L 16 138/91 06/17/21 13:30 53 L 15 135/82 06/17/21 13:15 53 L 14 120/85 06/17/21 13:00 55 L 16 119/82 06/17/21 12:45 36.6 C 59 L 54 L 21 120/81 06/17/21 12:30 56 L 18 105/77 06/17/21 10:42 64 20 06/17/21 10:30 52 L 14 97/62 L BP Pulse Ox 06/18/21 08:41 06/18/21 08:13 96 06/18/21 08:00 06/18/21 04:00 93 06/18/21 00:00 95 06/17/21 20:00 94 06/17/21 18:25 97 06/17/21 17:09 97 06/17/21 16:45 06/17/21 16:30 06/17/21 16:15 06/17/21 16:00 06/17/21 15:45 06/17/21 15:30 06/17/21 15:16 94 06/17/21 15:00 97 06/17/21 14:45 98 06/17/21 14:30 99 06/17/21 14:15 100 06/17/21 14:00 100 06/17/21 13:45 98 06/17/21 13:30 98 06/17/21 13:15 99 06/17/21 13:00 99 06/17/21 12:45 99 06/17/21 12:30 97 06/17/21 10:42 105/70 06/17/21 10:30 96 Recovery Score Respiration: Deep Breath/Cough Circulation: +/-20% PreAnes Value Consciousness: Fully Awake Oxygen Saturation: O2 needed for >90% Discharge Sedation Level of Care: Phase I Post Sedation Plan On clinical assessment, the patient appears to have tolerated the sedation without complications. Patient is recovering as anticipated. Patient will continue to be monitored by nursing and may be discharged when sedation discharge criteria are met per below protocol. Upon Completions of procedure up to 15 minutes continue every 5 minute vital signs and the P.A.R. score; then discharge to a Phase I or Fast Track to Phase II per the following guidelines: * Discharge Patient to appropriate Phase II area if PAR is 8 or greater or return to pre- procedure baseline. The post - procedure orders will be as directed. * If PAR score is less than 8 or not return to pre-procedure baseline then patient will follow Phase I monitoring till PAR is reached for Phase II. The Phase I may be done in procedure room or may call to secure a Phase I area. * If naloxone or flumazenil are used for reversal, hold in Phase I for continued monitoring from when last reversal dose was given for a minimum of 60 minutes or longer pending the nurse and/or physician discretion of patient condition before discharge to Phase II. Please call the Sedation Physician to re-evaluate and complete post-note for discharge to Phase II area. Do NOT discharge from procedure sedation or Phase 1 until post- sedation evaluation note is complete by procedure /sedation MD Sedation Discharge Instructions to be given to the patient at discharge to home.
--- NOTE | 2021-06-17 11:54 | Cardiac Catheterization ---
Cardiac Cath Procedure Full Procedure Date June 17, 2021 Pre-Procedure Diagnosis Pre-Procedure Diagnosis: Non STEMI AUC Score AUC Score: 8 Post-Procedure Diagnosis Post-Procedure Diagnosis: Severe CAD and Elevated Intracardiac Pressures Procedure(s) Performed Procedure(s) Performed: Coronary Angiography and Left Heart Cath Cutting And Creasing Press Operator Bj Goetz DO Marshmallow Runner(s) Showers RN Estimated Blood Loss Estimated Blood Loss: 8cc Medication(s) Medication(s): Fentanyl, Heparin, Lidocaine 1%, Nicardipine and Versed Summary of Findings 30% distal left main Thrombus of the ostial 2nd diagonal branch vessel, nonocclusive with ENZO 3 flow 80% proximal RCA instent stenosis 60% mid instent stenosis Hemodynamics Rest Ao:: 86/56/69 Final Ao: 91/57/72 LV: 95/6/13 Recommendations Recommendations: PCI without planned CABG Specimens Specimens: None Radiation Exposure (mGy) 1076 Contrast (mls) 65 Fluids (cc crystalloids) Fluids (cc crystalloids): 267 Nss Drains Drains: N/A Anesthesia Moderate Sedation. Start 1106. End 1135. Sedation Monitor: Diane GASPAR. Procedural Complication(s) None Disposition construction craft laborer for PCI I attest to the content of the Intraoperative Record and any orders documented therein. Any exceptions are noted below. ACC Data: Senior Sales Director Cardiac Status Clinical evaluation leading to the procedure 60-year-old patient with history of complex coronary disease, prior LAD and RCA intervention, and moderate distal left main stenosis presented to the ER with waxing and waning exertional and resting chest discomfort. Troponin mildly elevated. Echocardiogram demonstrating severe LV systolic function with ejection fraction of 25-30%, however, unchanged when compared to prior imaging. CAD Presenation: Non STEMI Anginal Classification: CCS IV Heart Failure: NYHA Class: CCS III Cardiogenic Shock within 24 Hours: No Cardiac Arrest within 24 Hours: No Imaging Studies Past 6 Months: Yes Stress Studies Past 6 Months: No STEMI OR Non-STEMI Symptom Onset Date: 06/16/21 Symptom Onset Time: 15:00 Thrombolytics: No Coronary Anatomy Dominant: Right Left Main (% Stenosis): Distal (30%) LAD (% Stenosis): Proximal (Stent patent extending to the mid segment.) and Mid (30% in-stent stenosis, there is a second late mid coronary stent which is patent, mild in-stent restenosis, 10%.) D1 (% Stenosis): Proximal (30%) D2 (% Stenosis): Ostial (nonocclusive thrombus) Circumflex (% Stenosis): Proximal (30%) and Mid (20%) OM1 (% Stenosis): Proximal (20%) RCA (% Stenosis): Proximal (80% instent) and Mid (60% instent) R PDA (% Stenosis): Ostial (30%) R PL1 (% Stenosis): Normal Diagnostic Physicians Name: Bj Goetz DO Closure Device Closure Device: Radial Band Recommendations: PCI without planned CABG Intraprocedure Events Significant Disection: No Perforation: No
[2021-06-17] MEDS ORDERED: TICAGRELOR 90 MG TAB PO ONE (12:22)
--- NOTE | 2021-06-17 12:25 | Post Anesthesia Assessment ---
Date of Service June 17, 2021 Post Sedation Assessment Vital Signs Temp Pulse Pulse Resp BP BP BP 06/17/21 10:42 64 20 105/70 06/17/21 10:30 52 L 14 97/62 L 06/17/21 10:00 51 L 16 94/66 L 06/17/21 09:00 65 16 103/75 06/17/21 08:00 97.7 F 64 15 127/72 06/17/21 07:00 60 12 112/72 06/17/21 05:15 57 L 24 94/69 L 06/17/21 05:00 58 L 14 108/73 06/17/21 04:45 57 L 22 110/74 06/17/21 04:30 57 L 18 120/79 06/17/21 04:15 57 L 111/69 06/17/21 04:00 56 L 24 104/69 06/17/21 03:45 58 L 20 102/74 06/17/21 03:43 97.7 F 06/17/21 03:30 57 L 17 98/66 L 06/17/21 03:15 58 L 17 109/77 06/17/21 03:00 61 13 106/77 06/17/21 02:45 59 L 15 88/70 L 06/17/21 02:30 57 L 15 102/67 06/17/21 02:15 54 L 14 99/67 L 06/17/21 02:00 97.5 F L 55 L 15 100/67 06/17/21 01:45 56 L 15 101/65 06/17/21 01:30 57 L 21 104/66 06/17/21 01:15 58 L 15 98/67 L 06/17/21 01:00 59 L 17 91/66 L 06/17/21 00:45 57 L 17 95/67 L 06/17/21 00:30 58 L 21 99/70 L 06/17/21 00:15 60 17 86/71 L 06/17/21 00:04 61 06/17/21 00:00 62 17 85/71 L 06/16/21 23:45 66 19 110/74 06/16/21 23:30 73 19 116/72 06/16/21 23:15 76 20 99/71 L 06/16/21 23:00 77 20 105/66 06/16/21 22:45 76 20 101/69 06/16/21 22:30 80 23 103/73 06/16/21 22:18 97.7 F 82 80 15 117/86 06/16/21 22:15 97.7 F 80 24 117/86 06/16/21 22:14 86 19 06/16/21 20:30 87 17 06/16/21 20:20 80 17 06/16/21 20:10 80 18 140/60 06/16/21 20:00 84 18 06/16/21 19:50 78 18 06/16/21 19:40 77 21 06/16/21 19:30 77 24 06/16/21 19:20 80 18 06/16/21 19:10 78 17 06/16/21 19:00 88 14 06/16/21 18:50 82 20 06/16/21 18:40 85 25 H 06/16/21 18:30 85 20 06/16/21 18:20 85 29 H 06/16/21 18:10 25 H 06/16/21 18:00 18 140/82 06/16/21 17:50 21 06/16/21 17:40 23 06/16/21 17:30 33 H 06/16/21 17:20 23 06/16/21 17:10 88 19 06/16/21 17:00 96 H 22 06/16/21 16:58 95 H 20 138/95 06/16/21 16:57 94 H 28 H 138/95 06/16/21 16:48 98.1 F 91 H 19 139/90 Pulse Ox 06/17/21 10:42 06/17/21 10:30 96 06/17/21 10:00 95 06/17/21 09:00 91 06/17/21 08:00 97 06/17/21 07:00 97 06/17/21 05:15 96 06/17/21 05:00 96 06/17/21 04:45 96 06/17/21 04:30 98 06/17/21 04:15 98 06/17/21 04:00 97 06/17/21 03:45 97 06/17/21 03:43 06/17/21 03:30 95 06/17/21 03:15 97 06/17/21 03:00 96 06/17/21 02:45 98 06/17/21 02:30 98 06/17/21 02:15 97 06/17/21 02:00 97 06/17/21 01:45 97 06/17/21 01:30 97 06/17/21 01:15 98 06/17/21 01:00 97 06/17/21 00:45 97 06/17/21 00:30 95 06/17/21 00:15 97 06/17/21 00:04 06/17/21 00:00 97 06/16/21 23:45 99 06/16/21 23:30 98 06/16/21 23:15 96 06/16/21 23:00 96 06/16/21 22:45 97 06/16/21 22:30 94 06/16/21 22:18 95 06/16/21 22:15 95 06/16/21 22:14 95 06/16/21 20:30 97 06/16/21 20:20 96 06/16/21 20:10 96 06/16/21 20:00 96 06/16/21 19:50 97 06/16/21 19:40 96 06/16/21 19:30 96 06/16/21 19:20 96 06/16/21 19:10 96 06/16/21 19:00 96 06/16/21 18:50 93 06/16/21 18:40 93 06/16/21 18:30 93 06/16/21 18:20 96 06/16/21 18:10 97 06/16/21 18:00 97 06/16/21 17:50 98 06/16/21 17:40 98 06/16/21 17:30 97 06/16/21 17:20 96 06/16/21 17:10 98 06/16/21 17:00 100 06/16/21 16:58 99 06/16/21 16:57 06/16/21 16:48 98 Recovery Score Respiration: Deep Breath/Cough Circulation: +/-20% PreAnes Value Consciousness: Fully Awake Oxygen Saturation: O2 needed for >90% Discharge Sedation Level of Care: Fast Track Phase II Post Sedation Plan On clinical assessment, the patient appears to have tolerated the sedation without complications. Patient is recovering as anticipated. Patient will continue to be monitored by nursing and may be discharged when sedation discharge criteria are met per below protocol. Upon Completions of procedure up to 15 minutes continue every 5 minute vital signs and the P.A.R. score; then discharge to a Phase I or Fast Track to Phase II per the following guidelines: * Discharge Patient to appropriate Phase II area if PAR is 8 or greater or return to pre- procedure baseline. The post - procedure orders will be as directed. * If PAR score is less than 8 or not return to pre-procedure baseline then patient will follow Phase I monitoring till PAR is reached for Phase II. The Phase I may be done in procedure room or may call to secure a Phase I area. * If naloxone or flumazenil are used for reversal, hold in Phase I for continued monitoring from when last reversal dose was given for a minimum of 60 minutes or longer pending the nurse and/or physician discretion of patient condition before discharge to Phase II. Please call the Sedation Physician to re-evaluate and complete post-note for discharge to Phase II area. Do NOT discharge from procedure sedation or Phase 1 until post- sedation evaluation note is complete by procedure /sedation MD Sedation Discharge Instructions to be given to the patient at discharge to home.
--- NOTE | 2021-06-17 12:37 | Cardiac Catheterization ---
ACC Data: Upholstery Covers Inspector Cardiac Status Clinical evaluation leading to the procedure CAD Presenation: Non STEMI Anginal Classification: CCS IV Heart Failure: No Cardiogenic Shock within 24 Hours: No Cardiac Arrest within 24 Hours: No Imaging Studies Past 6 Months: Yes Stress Studies Past 6 Months: No Diagnostic Physicians Name: Edgardo Camacho MD Status: Elective Closure Device Percutaneous Entry Location: Radial Closure Device: Radial Band Recommendations: PCI without planned CABG Lesion Segment Name: mid RCA Culprit Artery: Yes Stenosis Prior to Rx (%): 80 Chronic Total Occlusion: No IVUS: No FFR: No Pre-Procedure ENZO Flow: 3 Previously Treated Lesion: Timeframe: greater than 2 years Treated with Stent: Yes In-Stent Restenosis: Yes In-Stent Thrombosis: Yes Yes Lesion Complexity: Non-High/Non-C Lesion Length (mm): 12 Thrombus Present: Yes Bifurcation Lesion: No Guidewire Across Lesion: Stenosis Post-Procedure (%): 0 Post-Procedure ENZO Flow: 3 Devices(s) Deployed: Yes Yes Intraprocedure Events Significant Disection: No Perforation: No Cardiac Cath Procedure Full Procedure Date June 17, 2021 Pre-Procedure Diagnosis Pre-Procedure Diagnosis: Non STEMI AUC Score AUC Score: 8 Post-Procedure Diagnosis Post-Procedure Diagnosis: Severe CAD and Successful PCI Procedure(s) Performed Procedure(s) Performed: Drug Eluting Stent Insurance Account Executive Edgardo Camacho MD Hand Method Lasting Machine Operator(s) Showers Estimated Blood Loss Estimated Blood Loss: 15 Medication(s) Medication(s): Fentanyl, Heparin, Nicardipine and Versed Medication(s): Ticagrelor Summary of Findings Indication: High-risk NSTEMI Access: 6Fr right radial artery Catheters: JR4 guide Findings: For full details of patient's coronary angiography please see cath report dictated by Dr. Goetz. Briefly, patient found to have a severe acute mid RCA in-stent stenosis. Decision to proceed with PCI. -- PCI -- Antithrombotic therapy: Heparin, ticagrelor Procedure: RCA cannulated with JR4 BMW wire passed across lesion into distal vessel Mid RCA lesion predilated with 3.0 compliant balloon Dilated lesion stented with 3.5 x 15 mm Xience drug-eluting stent Stent post-dilated with 4.0 noncompliant balloon IC vasodilators administered for spasm Post procedure ENZO 3 flow, stent well expanded with minimal residual stenosis and no apparent cardiac complications. Arterial Closure: TR band Summary: 1. Successful PCI of mid RCA in-stent thrombosis with single drug-eluting stent (3.5 x 15 mm Xience; postdilated with 4.0 NC) Recommendations: To PCU for continued monitoring Loaded with ticagrelor 180 mg in cath Continue dual-antiplatelet therapy for at least 1 year. Consider extended DAPT in the setting of overlapping stents. Consult cardiac Rehab Hemodynamics Rest Ao:: 91/57/72 Final Ao: 98/61/77 LV: -- Recommendations Recommendations: PCI without planned CABG Specimens Specimens: None Radiation Exposure (mGy) 2030 Contrast (mls) 75 Fluids (cc crystalloids) Fluids (cc crystalloids): 410 Drains Drains: N/A Anesthesia Moderate Sedation. Start 1156. End 1224. Sedation Monitor: Diane GASPAR. Procedural Complication(s) None Disposition PCU I attest to the content of the Intraoperative Record and any orders documented therein. Any exceptions are noted below. [facility] Card Cath Procedure Codes Moderate Sedation Procedure 1: Sedation/Anesthesia: 52373 Mod Sedation by the same physician; Ea Ad [id number] Minutes Stenting Procedure 1: Cardiovascular Stent Procedures: 35474 Perc transcatheter placement of intracoronary stent(s), with ang PG Care Time/CCT Total # of Minutes Spent Total Time Spent with Patient: Total time spent is greater than 50% in coordination of care (as documented) at patient's floor/unit and/or counseling patient:
[2021-06-17] MEDS ORDERED: SODIUM CHLORIDE 0.9% 1000ML 1,000 ML IV SCH (12:45)
--- NOTE | 2021-06-17 13:31 | Electrocardiogram Report ---
Test Reason : Blood Pressure : / mmHG Vent. Rate : 090 BPM Atrial Rate : 090 BPM P-R Int : 186 ms QRS Dur : 108 ms QT Int : 378 ms P-R-T Axes : 071 003 070 degrees QTc Int : 462 ms Sinus rhythm with frequent Premature ventricular complexes Inferior infarct (cited on or before 27-JAN-2017) Cannot rule out Anterior infarct (cited on or before 27-JAN-2017) Abnormal ECG When compared with ECG of 12-JUL-2018 10:53, Premature ventricular complexes are now Present Confirmed by Minor Cheung ([id number]) on 06/17/2021 1:31:14 PM Referred By: REFERRED SELF Confirmed By:Minor Cheung
--- NOTE | 2021-06-17 13:32 | Electrocardiogram Report ---
Test Reason : Blood Pressure : / mmHG Vent. Rate : 097 BPM Atrial Rate : 097 BPM P-R Int : 178 ms QRS Dur : 112 ms QT Int : 358 ms P-R-T Axes : 057 -29 054 degrees QTc Int : 454 ms Normal sinus rhythm Low voltage QRS Inferior infarct (cited on or before 27-JAN-2017) Anterolateral infarct (cited on or before 27-JAN-2017) Abnormal ECG When compared with ECG of 16-JUN-2021 17:12, (unconfirmed) Premature ventricular complexes are no longer Present Confirmed by Minor Cheung ([id number]) on 06/17/2021 1:32:35 PM Referred By: REFERRED SELF Confirmed By:Minor Cheung
--- NOTE | 2021-06-17 13:32 | Electrocardiogram Report ---
Test Reason : Blood Pressure : / mmHG Vent. Rate : 092 BPM Atrial Rate : 092 BPM P-R Int : 190 ms QRS Dur : 112 ms QT Int : 352 ms P-R-T Axes : 061 -20 063 degrees QTc Int : 435 ms Sinus rhythm with occasional , and consecutive Premature ventricular complexes Low voltage QRS Inferior infarct (cited on or before 27-JAN-2017) Cannot rule out Anterior infarct (cited on or before 27-JAN-2017) Abnormal ECG When compared with ECG of 16-JUN-2021 16:57, (unconfirmed) No significant change Confirmed by Minor Cheung ([id number]) on 06/17/2021 1:31:42 PM Referred By: REFERRED SELF Confirmed By:Minor Cheung
--- NOTE | 2021-06-17 13:41 | Electrocardiogram Report ---
Test Reason : Blood Pressure : / mmHG Vent. Rate : 066 BPM Atrial Rate : 066 BPM P-R Int : 190 ms QRS Dur : 110 ms QT Int : 420 ms P-R-T Axes : 018 -06 082 degrees QTc Int : 440 ms Normal sinus rhythm Inferior infarct (cited on or before 27-JAN-2017) Poor R wave progression, consider anterior RI vs. lead placement vs. LVH Abnormal ECG When compared with ECG of 16-JUN-2021 17:15, (unconfirmed) Questionable change in initial forces of Anterolateral leads Confirmed by Minor Cheung ([id number]) on 06/17/2021 1:41:00 PM Referred By: REFERRED SELF Confirmed By:Minor Cheung
--- NOTE | 2021-06-17 13:43 | Electrocardiogram Report ---
Test Reason : Blood Pressure : / mmHG Vent. Rate : 058 BPM Atrial Rate : 058 BPM P-R Int : 206 ms QRS Dur : 112 ms QT Int : 452 ms P-R-T Axes : 027 009 093 degrees QTc Int : 443 ms Sinus bradycardia Possible Inferior infarct (cited on or before 27-JAN-2017) Abnormal ECG When compared with ECG of 16-JUN-2021 23:43, (unconfirmed) No significant change was found Confirmed by Minor Cheung ([id number]) on 06/17/2021 1:43:20 PM Referred By: REFERRED SELF Confirmed By:Minor Cheung
[2021-06-17] MEDS: CITALOPRAM 20 MG TAB PO SCH (13:57)
[2021-06-17] MEDS ORDERED: Heparin IV Adult Wt-Based Standard WITH Bolus Protocol IV STA (16:44)
[2021-06-17] MEDS ORDERED: HEPARIN SOD (PORCINE) 1000 UNIT/ML IV ONE (17:00)
[2021-06-17] MEDS ORDERED: HEPARIN SODIUM/DEXTROSE 25,000 UNITS/500 ML BAG IV SCH (17:00)
[2021-06-17 19:02] LABS: Hematocrit (blood only) 40.8 % (42-52); Hemoglobin 13.6 g/dL (14.0-18.0); Mean Corpuscular Hemoglobin 29.8 pg (25-34); Mean Corpuscular Volume 89.3 fL (80-100); Mean Platelet Volume 10.2 fL (7.4-10.4); Platelet Count 239 K/uL (130-400); RDW Coefficient of Variation 14.8 % (11.5-14.5); RDW Standard Deviation 48.8 fL (36.4-46.3); Red Blood Count 4.57 M/uL (4.7-6.1); White Blood Count 7.14 K/uL (4.8-10.8)
[2021-06-17 19:20] LABS: Partial Thromboplastin Ratio 1.1; Partial Thromboplastin Time 28.8 Seconds (21.0-31.0); Prothrombin Time 10.3 Seconds (9.0-12.0)
[2021-06-17 19:38] LABS: Basophils # (auto) 0.03 K/uL (0-0.2); Basophils % (auto) 0.4 %; Eosinophils # (auto) 0.12 K/uL (0-0.5); Eosinophils % (auto) 1.7 %; Immature Granulocytes # (auto) 0.01 K/uL (0.00-0.02); Immature Granulocytes % (auto) 0.1 %; Lymphocytes # (auto) 1.41 K/uL (1.2-3.4); Lymphocytes % (auto) 19.7 %; Mean Corpuscular Hgb Conc 33.3 g/dL (32-36); Monocytes # (auto) 0.89 K/uL (0.11-0.59); Monocytes % (auto) 12.5 %; Neutrophils # (auto) 4.68 K/uL (1.4-6.5); Neutrophils % (auto) 65.6 %
--- NOTE | 2021-06-17 21:53 | Hospitalist Progress Note ---
Date of Service June 17, 2021 Assessment & Plan (1) Acute coronary syndrome: Plan: 60yo male PMH prev. [place] stentsx5, stroke,CAD, UC, COPD, depression here for chest pain. Acute Coronary Syndrome/NSTEMI -admit to ICU on nitro drip, now titrated off after heart cath, move to PCU initially on heparin drip until he could have left heart cath started on metoprolol 25mg -left heart cath: found to have mid RCA in stent stenosis of 80% treated with PCU by Dr. Camacho on aspirin and Brilinita, Lipitor BP up at times, no further chest pain will d/w cardiology tomorrow about potential discharge to home if he is stable AB - Cr 1.7, will repeat in the morning after heart cath making urine, electrolytes stable CAD -see above Depression -continue home citalopram 20mg cardiac diet (2) CAD (coronary artery disease): (3) Depression: (4) Ulcerative colitis: (5) COPD (chronic obstructive pulmonary disease): (6) Ischemic cardiomyopathy: (7) Acute kidney injury: Admission and Anticipated Discharge Date Admission Date: June 17, 2021 Subjective patient doing well, no chest pain or pressure after stent placed breathing well on room air eating and drinking well, no nausea, no fever/chills updated his at the bedside d/w Dr. Caldwell, change to PCU status, make full admission chance he could go home tomorrow, will check with cardiology Review of Systems Review of Systems: All systems reviewed & are unremarkable except as noted in Subjective Physical Exam Physical Exam: General: well developed, well nourished, obese male, no acute distress, comfortable Neck: supple, trachea midline, normal thyroid Lungs: clear to auscultation bilaterally, normal respiratory effort, no accessory muscle use, no distress Heart: regular S1 and S2, no murmur, peripheral pulses normal, capillary refill normal, no edema Abdomen: soft, NT, ND, + BS, no hepatomegaly, normal to percussion Extremities: normal in appearance, no cyanosis, no petechiae, strength is 5/5 bilaterally Neuro: awake, cooperative, moves all extremities, no focal motor deficits, CN II-XII intact, sensation in extremities intact, normal speech Skin: warm, dry, no rash, normal turgor Psych: Awake, alert oriented x 3, euthymic affect Results & Data Results & Data ([facility]) Vital Signs (Past 12 Hours) Vital Signs Temp Pulse Pulse Pulse Resp BP BP 06/17/21 20:00 36.8 C 66 15 111/70 06/17/21 18:25 63 17 122/70 06/17/21 17:09 67 16 101/68 06/17/21 16:45 71 21 06/17/21 16:30 64 20 06/17/21 16:15 65 19 06/17/21 16:00 63 21 106/74 06/17/21 15:45 63 19 06/17/21 15:30 60 24 06/17/21 15:16 87 18 06/17/21 15:00 69 21 06/17/21 14:45 64 22 137/91 06/17/21 14:30 57 L 16 112/72 06/17/21 14:15 57 L 17 115/85 06/17/21 14:00 61 22 111/75 06/17/21 13:45 58 L 16 138/91 06/17/21 13:30 53 L 15 135/82 06/17/21 13:15 53 L 14 120/85 06/17/21 13:00 55 L 16 119/82 06/17/21 12:45 36.6 C 59 L 54 L 21 120/81 06/17/21 12:30 56 L 18 105/77 06/17/21 10:42 64 20 06/17/21 10:30 52 L 14 97/62 L 06/17/21 10:00 51 L 16 94/66 L BP Pulse Ox 06/17/21 20:00 94 06/17/21 18:25 97 06/17/21 17:09 97 06/17/21 16:45 06/17/21 16:30 06/17/21 16:15 06/17/21 16:00 06/17/21 15:45 06/17/21 15:30 06/17/21 15:16 94 06/17/21 15:00 97 06/17/21 14:45 98 06/17/21 14:30 99 06/17/21 14:15 100 06/17/21 14:00 100 06/17/21 13:45 98 06/17/21 13:30 98 06/17/21 13:15 99 06/17/21 13:00 99 06/17/21 12:45 99 06/17/21 12:30 97 06/17/21 10:42 105/70 06/17/21 10:30 96 06/17/21 10:00 95 Laboratory Results Laboratory Results - last 24 hr 06/16/21 06/16/21 06/16/21 21:41 22:00 23:54 WBC RBC Hgb Hct MCV MCH MCHC RDW Std Deviation RDW Coeff of Arline Plt Count MPV Immature Gran % (Auto) Neut % (Auto) Lymph % (Auto) [place] % (Auto) Eos % (Auto) Baso % (Auto) Neut # (Auto) Lymph # (Auto) [place] # (Auto) Eos # (Auto) Baso # (Auto) Immature Gran # (Auto) PT INR APTT PTT Ratio Activ Coag Time Kaolin Sodium Potassium Chloride Carbon Dioxide Anion Gap BUN Creatinine Est Cr Clr Drug Dosing Est GFR ( Amer) Est GFR (Non-Af Amer) BUN/Creatinine Ratio Glucose POC Glucose 101 H Lactate 1.3 Calcium Troponin I Triglycerides Cholesterol LDL Cholesterol, Calc VLDL Cholesterol, Calc HDL Cholesterol Cholesterol/HDL Ratio Urine Color Urine Appearance Urine pH Ur Specific [place] Urine Protein Urine Glucose (UA) Urine Ketones Urine Blood Urine Nitrite Urine Bilirubin Urine Urobilinogen Ur Leukocyte Esterase Urine WBC (Auto) Urine RBC (Auto) U Hyaline Cast (Auto) U Epithel Cells (Auto) Urine Bacteria (Auto) Calcium Oxalate Crystal Granular Casts Urine Mucus Nasal Screen MRSA (PCR) Negative 06/17/21 06/17/21 06/17/21 03:32 03:32 03:35 WBC 8.49 RBC 4.40 L Hgb 13.0 L Hct 39.3 L MCV 89.3 MCH 29.5 MCHC 33.1 RDW Std Deviation 48.6 H RDW Coeff of Arline 14.9 H Plt Count 241 MPV 9.9 Immature Gran % (Auto) 0.1 Neut % (Auto) 62.7 Lymph % (Auto) 25.6 [place] % (Auto) 10.6 Eos % (Auto) 0.8 Baso % (Auto) 0.2 Neut # (Auto) 5.32 Lymph # (Auto) 2.17 [place] # (Auto) 0.90 H Eos # (Auto) 0.07 Baso # (Auto) 0.02 Immature Gran # (Auto) 0.01 PT INR APTT PTT Ratio Activ Coag Time Kaolin Sodium 137 Potassium 4.1 Chloride 108 H Carbon Dioxide 22 Anion Gap 7.0 BUN 31 H Creatinine 1.72 H D Est Cr Clr Drug Dosing 55.3 Est GFR ( Amer) 48.3 Est GFR (Non-Af Amer) 41.7 BUN/Creatinine Ratio 18.0 Glucose 104 H POC Glucose Lactate Calcium 8.7 Troponin I 1.310 H* Triglycerides 81 Cholesterol 211 H LDL Cholesterol, Calc 152 VLDL Cholesterol, Calc 16 HDL Cholesterol 43 Cholesterol/HDL Ratio 5 Urine Color Dark Yellow Urine Appearance Clear Urine pH 5.5 Ur Specific [place] 1.025 Urine Protein 1+ H Urine Glucose (UA) Negative Urine Ketones Trace H Urine Blood Negative Urine Nitrite Negative Urine Bilirubin Negative Urine Urobilinogen Negative Ur Leukocyte Esterase Negative Urine WBC (Auto) 1-5 Urine RBC (Auto) 0-4 U Hyaline Cast (Auto) 10-30 H U Epithel Cells (Auto) 20-30 H Urine Bacteria (Auto) Negative Calcium Oxalate Crystal Present A Granular Casts 1-5 H Urine Mucus Present A Nasal Screen MRSA (PCR) 06/17/21 06/17/21 06/17/21 04:36 10:30 10:30 WBC RBC Hgb Hct MCV MCH MCHC RDW Std Deviation RDW Coeff of Arline Plt Count MPV Immature Gran % (Auto) Neut % (Auto) Lymph % (Auto) [place] % (Auto) Eos % (Auto) Baso % (Auto) Neut # (Auto) Lymph # (Auto) [place] # (Auto) Eos # (Auto) Baso # (Auto) Immature Gran # (Auto) PT INR APTT 40.7 H 42.4 H PTT Ratio 1.5 1.6 Activ Coag Time Kaolin Sodium Potassium Chloride Carbon Dioxide Anion Gap BUN Creatinine Est Cr Clr Drug Dosing Est GFR ( Amer) Est GFR (Non-Af Amer) BUN/Creatinine Ratio Glucose POC Glucose Lactate Calcium Troponin I 1.310 H* Triglycerides Cholesterol LDL Cholesterol, Calc VLDL Cholesterol, Calc HDL Cholesterol Cholesterol/HDL Ratio Urine Color Urine Appearance Urine pH Ur Specific [place] Urine Protein Urine Glucose (UA) Urine Ketones Urine Blood Urine Nitrite Urine Bilirubin Urine Urobilinogen Ur Leukocyte Esterase Urine WBC (Auto) Urine RBC (Auto) U Hyaline Cast (Auto) U Epithel Cells (Auto) Urine Bacteria (Auto) Calcium Oxalate Crystal Granular Casts Urine Mucus Nasal Screen MRSA (PCR) 06/17/21 06/17/21 06/17/21 12:17 18:55 18:55 WBC 7.14 RBC 4.57 L Hgb 13.6 L Hct 40.8 L MCV 89.3 MCH 29.8 MCHC 33.3 RDW Std Deviation 48.8 H RDW Coeff of Arline 14.8 H Plt Count 239 MPV 10.2 Immature Gran % (Auto) 0.1 Neut % (Auto) 65.6 Lymph % (Auto) 19.7 [place] % (Auto) 12.5 Eos % (Auto) 1.7 Baso % (Auto) 0.4 Neut # (Auto) 4.68 Lymph # (Auto) 1.41 [place] # (Auto) 0.89 H Eos # (Auto) 0.12 Baso # (Auto) 0.03 Immature Gran # (Auto) 0.01 PT 10.3 INR 1.0 APTT 28.8 PTT Ratio 1.1 Activ Coag Time Kaolin 224 H Sodium Potassium Chloride Carbon Dioxide Anion Gap BUN Creatinine Est Cr Clr Drug Dosing Est GFR ( Amer) Est GFR (Non-Af Amer) BUN/Creatinine Ratio Glucose POC Glucose Lactate Calcium Troponin I Triglycerides Cholesterol LDL Cholesterol, Calc VLDL Cholesterol, Calc HDL Cholesterol Cholesterol/HDL Ratio Urine Color Urine Appearance Urine pH Ur Specific [place] Urine Protein Urine Glucose (UA) Urine Ketones Urine Blood Urine Nitrite Urine Bilirubin Urine Urobilinogen Ur Leukocyte Esterase Urine WBC (Auto) Urine RBC (Auto) U Hyaline Cast (Auto) U Epithel Cells (Auto) Urine Bacteria (Auto) Calcium Oxalate Crystal Granular Casts Urine Mucus Nasal Screen MRSA (PCR) Medications Administered Current Inpatient Medications Acetaminophen (Acetaminophen 325 Mg Tab) 650 mg PO Q4H PRN PRN Reason: Pain or Fever Stop: 07/16/21 22:12 Aspirin (Aspirin 81 Mg Ectab) [facility] [place] Stop: 07/17/21 08:59 Last Admin: 06/17/21 07:58 Dose: 81 mg Documented by: Atorvastatin Calcium (Atorvastatin 40 Mg Tab) 80 mg [facility] [place] Stop: 07/18/21 08:59 Citalopram Hydrobromide (Citalopram 20 Mg Tab) 20 mg [facility] [place] Stop: 07/17/21 10:14 Last Admin: 06/17/21 13:57 Dose: 20 mg Documented by: Heparin Sodium/Dextrose (Heparin Sodium/Dextrose) 25,000 units in 500 mls @ 32 mls/hr IV .[id number] [facility]; Protocol Stop: 07/17/21 16:59 Last Admin: 06/17/21 19:49 Dose: 1,600 units/hr, 32 mls/hr Documented by: Metoprolol Succinate (Metoprolol Succ 25mg Ext Rel Tab) 25 mg PO QAM [facility] Stop: 07/18/21 08:59 Nitroglycerin (Nitroglycerin Sl 0.4 Mg/Tab Tab) 0.4 mg SL UD PRN PRN Reason: Chest Pain Stop: 07/16/21 22:12 Ondansetron HCl (Ondansetron Inj 2 Mg/Ml 2 Ml Vial) 4 mg IV Q6H PRN PRN Reason: Nausea Stop: 07/16/21 22:12 Ticagrelor (Ticagrelor 90 Mg Tab) 90 mg PO BID [facility] Stop: 07/17/21 22:59 PG Care Time/CCT Total # of Minutes Spent Total Time Spent with Patient: Total time spent is greater than 50% in coordination of care (as documented) at patient's floor/unit and/or counseling patient: Coding Level of Care Code 14196 Subseq Hosp Care Lvl 2 Diagnoses Acute coronary syndrome I24.9 CAD (coronary artery disease) I25.10 Depression F32.9 Ulcerative colitis K51.90 COPD (chronic obstructive pulmonary disease) J44.9 Ischemic cardiomyopathy I25.5 Acute kidney injury N17.9
[2021-06-17] MEDS: TICAGRELOR 90 MG TAB PO SCH (22:48)
[2021-06-18 02:53] LABS: Partial Thromboplastin Ratio 3.8
[2021-06-18 02:55] LABS: Partial Thromboplastin Time 100.5 Seconds (21.0-31.0)
[2021-06-18] MEDS: TICAGRELOR 90 MG TAB PO SCH (08:19)
[2021-06-18] MEDS: ASPIRIN 81 MG ECTAB PO SCH (08:19)
[2021-06-18] MEDS: CITALOPRAM 20 MG TAB PO SCH (08:19)
[2021-06-18] MEDS ORDERED: METOPROLOL SUCC 25MG EXT REL TAB PO SCH (09:00)
[2021-06-18] MEDS ORDERED: ATORVASTATIN 40 MG TAB PO SCH (09:00)
[2021-06-18 09:17] LABS: BUN Creatinine Ratio 19.1 (10-20); Calcium 9.4 mg/dl (8.5-10.1); Creatinine Clr Calc Pharmacy 67.5 ml/min; Est GFR (African American) 61.4 ml/min
[2021-06-18 09:20] LABS: Partial Thromboplastin Ratio 2.4
[2021-06-18 09:46] LABS: Partial Thromboplastin Time 64.3 Seconds (21.0-31.0)
--- NOTE | 2021-06-18 10:23 | Cardiology Progress Note ---
Date of Service June 18, 2021 Assessment & Plan (1) NSTEMI (non-ST elevated myocardial infarction): (2) Acute kidney injury: (3) Ischemic cardiomyopathy: (4) ASCVD (arteriosclerotic cardiovascular disease): Plan: Complex 60-year-old male above admitted with unstable angina pectoris, non-ST segment elevation myocardial infarction. Cardiac catheterization revealing severe right coronary artery stenosis status post successful drug-eluting stent implantation. Discussed importance of continuing dual antiplatelet therapy for a minimum of 1 year post percutaneous intervention. Continue beta-jammie and high intensity statin therapy. EVELYN inhibitor/ARB indicated, however, consider adding pending review of repeat basic metabolic panel in 1 week. Serum creatinine trending downward. Avoid NSAIDs. Repeat BMP in 1 week. Admission and Anticipated Discharge Date Admission Date: June 17, 2021 Subjective Patient seen and examined the bedside. Feeling well from a cardiovascular perspective. Denies any chest pain or unusual shortness of breath. Telemetry reveals sinus rhythm with occasional premature ventricular complexes. Tolerating dual antiplatelet therapy, beta-jammie, and high intensity statin therapy. Denies any wrist discomfort. No hematoma or ecchymosis. Review of Systems Review of Systems: All systems reviewed & are unremarkable except as noted in Subjective Physical Exam Constitutional: well developed and well nourished; no acute distress and not ill appearing ENMT: Mallampati Class: III Respiratory: normal respiratory effort; no respiratory distress and no labored breathing Auscultation: lungs clear to auscultation bilaterally; no crackles, no rales, no rhonchi and no wheezes Cardiovascular: Rate/Rhythm: regular rate and regular rhythm Heart Sounds: normal S1 and normal S2; no murmur Vessels: femoral pulses present and radial pulses present; no JVD and no carotid bruit Extremities: no edema Gastrointestinal (Abdomen): Inspection/Auscultation: abdomen normal to inspection and normal bowel sounds; abdomen not distended Percu ssion/Palpation: abdomen soft; abdomen nontender, no guarding and abdomen not rigid Neurologic: CN's II-XI intact bilaterally and moves all extremities; no focal motor deficits Motor/Sensory: no tremor Psychiatric: A+Ox3, euthymic affect Results & Data ([facility]) Vital Signs (Past 12 Hours) Vital Signs Temp Pulse Pulse Resp BP BP Pulse Ox 06/18/21 08:41 36.4 C L 11/10/21 08:13 69 20 125/82 96 06/18/21 08:00 80 06/18/21 04:00 36.8 C 70 15 130/75 93 06/18/21 00:00 36.6 C 57 L 17 111/63 95
--- NOTE | 2021-06-18 13:11 | Discharge Summary ---
Date of Service June 18, 2021 Admission HPI Per Admitting Provider 60yo Male presented to hospital with chest pain starting this morning while he was chopping wood, describes midsternal chest pain radiating to jaw, and weakness of both arms. Patient states he went home and took a nitroglycerin pill, it didn't help, his girlfriend drove him to ER. Patient states at this time he is only experiencing chest irritability now. He had a similar episode of chest pain a few days ago, took 2 aspirins and it went away. 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 He states he has diarrhea with his ulcerative colitis. He denies taking pravastatin, lisinopril, or mesalamine. He states his other medication includes 2 depression medication, tramadol, and something for his rash, he does not use his medication daily. Principal Diagnosis NSTEMI, in stent stenosis Discharge Exam General: well developed, well nourished, obese male, no acute distress, comfortable Neck: supple, trachea midline, normal thyroid Lungs: clear to auscultation bilaterally, normal respiratory effort, no accessory muscle use, no distress Heart: regular S1 and S2, no murmur, peripheral pulses normal, capillary refill normal, no edema Abdomen: soft, NT, ND, + BS, no hepatomegaly, normal to percussion Extremities: normal in appearance, no cyanosis, no petechiae, strength is 5/5 bilaterally Neuro: awake, cooperative, moves all extremities, no focal motor deficits, CN II-XII intact, sensation in extremities intact, normal speech Skin: warm, dry, no rash, normal turgor Psych: Awake, alert oriented x 3, euthymic affect Discharge Data Allergies Allergy/AdvReac Type Severity Reaction Status Date / Time No Known Allergies Allergy Verified 06/16/21 19:03 Consultations 06/16/21 18:35 ED Decision to Admit Stat 06/16/21 21:03 Consult Chip Mixing Machine Operator Routine 06/16/21 22:13 Consult Cardiology Routine 06/17/21 12:40 Consult Cardiac Rehabilitation Routine Procedures Performed Operation Date: 06/17/21 10:00 Actual Procedures s Cineradiography w/Routine Exam - Bj O Kopinski, DO p Drug Eluting Stent SGl Vessel - Clifton Camacho MD s Cath, Left with Cors and Vent - Bj Goetz DO Ordered Studies 06/17/21 10:29 CL Cath Imgs for PACS use only Routine Hospital Course (1) Acute coronary syndrome: 60yo male PMH prev. [place] stentsx5, stroke,CAD, UC, COPD, depression here for chest pain. Acute Coronary Syndrome/NSTEMI initially on heparin drip until he could have left heart cath started on metoprolol 25mg -left heart cath: found to have mid RCA in stent stenosis of 80% treated with PCI by Dr. Camacho on aspirin and Brilinita, Lipitor BP up at times, no further chest pain can discharge to home, follow up with Dr. Goetz next week will check BMP next week AB - Cr 1.4, improved from 2.0 on admission avoid all NSAIDs hold lisinopril, cardiology will resume when Cr back to baseline CAD -see above Depression -continue home citalopram 20mg cardiac diet (2) CAD (coronary artery disease): (3) Depression: (4) Ulcerative colitis: (5) COPD (chronic obstructive pulmonary disease): (6) Ischemic cardiomyopathy: (7) Acute kidney injury: Total Time Total Time Spent Total Time Spent (In Minutes): 32 Total Time Includes: Examination of the Patient, Discharge Planning, Medication Reconciliation and Communication With Other Providers Discharge Plan Discharge Items Patient Disposition: Home - Self-Care Reason For Visit: ACS Discharge Diagnosis: NSTEMI In stent stenosis in right coronary artery Condition on Discharge: Good Goals: follow up with cardiology follow cardiac diet take all of your prescribed medications Activity: Per Instructions section Sexual Activity: Wait until after follow-up appointment Exercise/Sports: Wait until after follow-up appointment Driving/Machine Use: Resume 1 day after discharge Weightbearing: Full weightbearing Non-emergency contact: Primary Care Provider and Baking Assistant Call non-emergency contact if: you have any medication questions Follow-up/Referrals: Linda Justice PA-C [Physician Tool Machine Shop Supervisor] - 06/25/21 11:00 am (Please follow up with Linda Justice PA-C on Wednesday06/25/21 at 11:00 am. Please arrive to the office at 10:45 am for your appointment. If you are unable to keep this appointment, please call the office to reschedule at [phone].) Oneal Brown III, MD [Primary Care Provider] - (Follow up appointment scheduled with Linda Justice PA-C.) Bj Goetz DO [Baking Assistant] - (1 week, his office will arrange) Diet: Carb Consistent or DM2 and Heart Healthy Addtl Attending Provider Instructions: Medications: - ASPIRIN: reduce to 81mg daily - BRILINTA: 90mg twice a day, need to take this for the next year with the aspirin, do not stop because it helps keep stent open - LIPITOR: 80mg daily, this reduces risk of future heart attack, stabilizes plaques, this replaces Crestor - TOPROL: 25mg daily, reduces strain on heart NSTEMI, found to have in stent stenosis in right coronary artery, treated with left heart cath, drug eluting stent take the above medications follow up with Dr. Goetz next week avoid all NSAIDs (Motrin, ibuprofen, Aleve) will repeat renal function next week, your creatinine is improving, down to 1.4 from 2.0 on admission Pending Studies at Discharge: No Stand-Alone Forms: My [facility] [place], Smoking Cessation Medications and DC Order Prescriptions: New atorvastatin 40 mg Tablet 80 mg PO QAM 30 Days Qty: 60 RF: 3 aspirin 81 mg Tablet,Delayed Release (Dr/Ec) 81 mg PO QAM 30 Days Qty: 30 RF: 3 metoprolol succinate 25 mg Tablet Extended Release 24 Hr 25 mg PO QAM 30 Days Qty: 30 RF: 3 Brilinta 90 mg Tablet 90 mg PO BID 30 Days Qty: 60 RF: 3 Continued tramadol 50 mg tablet 50 mg PO Q8H PRN (Reason: pain) Qty: 30 RF: 0 nitroglycerin 0.4 mg tablet, sublingual 0.4 mg Sublingual DIRECTED PRN (Reason: Angina) Qty: 25 RF: 5 Dupixent Syringe 300 mg/2 mL Syringe 300 mg SUBCUT UD RF: 0 balsalazide 750 mg capsule 2,250 mg PO TID RF: 0 Discontinued lisinopril 2.5 mg tablet 2.5 mg PO DAILY Qty: 90 RF: 3 pravastatin 20 mg tablet 20 mg PO HS Qty: 90 RF: 3 aspirin,buffd-calcium carb-mag 325 mg Tablet 325 mg PO QAM RF: 0 Discharge Orders: Discharge Order (Routine); Ordered 06/18/21 Ordered By: Gunner Ellis/Other Patient Handouts: Eating Heart-Healthy Foods Admission Data Admit Date/Time: 06/17/21 15:39 Attending Provider: Gunner Lorenzo Admit Provider: Domenica Wallace Primary Care Provider: Oneal Brown III Other Providers: Greg Mcdaniel ; Bobo Caldwell ; Sudhir Covington Other Interventions: Discharge Summary Assessment (RN) Last Done: 06/18/21 13:04 Coding Level of Care Code D/C DAY MANAGEMENT >30 MINS Diagnoses Acute coronary syndrome I24.9 CAD (coronary artery disease) I25.10 Depression F32.9 Ulcerative colitis K51.90 COPD (chronic obstructive pulmonary disease) J44.9 Ischemic cardiomyopathy I25.5 Acute kidney injury N17.9
== END 2021-06-18 14:50 | disposition home or self-care (01) | DRG 246 ==
LOC: 1E 16:42 → ED 16:42 → SUATTDRO 20:11 → 1E 22:24